=== PATIENT | female | born 1950 | race Caucasian/White ===

== ENCOUNTER 2020-11-02 23:33 | Emergency (ER) | payer MEDICARE, OTHER, SELFPAY ==
--- NOTE | ~2020-11-02 | CT_ITS ---
EXAMINATION: CT abdomen pelvis w con DATE: 11/03/2020 02:32 INDICATION: Abdominal pain. TECHNIQUE: Computed tomography (CT) of the abdomen and pelvis was performed with 100 mL Omnipaque 350 intravenous contrast. Automated exposure control and iterative reconstruction technique were employe d. The dose-length product was 1025.53 mGy-cm. COMPARISON: CT abdomen and pelvis 09/03/2015 FINDINGS: The visualized portions of the lung bases demonstrate minimal atelectasis. No pleural effus ion. The heart size is normal. No pericardial effusion. There is a right breast implant. The liver is normal. There is a 6 mm low-attenuation lesion in the inferior spleen, likely benign. There are devine ges of cholecystectomy. The adrenal glands are normal. There are cysts in the kidneys measuring up to 5 mm on the right. There is liquid stool in the colon suggestive of diarrhea. The appendix is normal . There is a 3.1 cm uterine fibroid. There are periuterine and ovarian veins are enlarged, consistent with pelvic venous insufficiency. There are no pathologically enlarged lymph nodes. There is a small volume of pelvic ascites. There is severe lumbar spondylosis. IMPRESSION: 1. Uterine fibroid. 2. Pelvic venous insufficiency. 3. Small volume of ascites. Reviewed, dictated and finalized at location A.
[2020-11-02 23:38] VITALS: BP 137/62; PULSE 102; RESP 18; TEMP 37.1; O2SAT 100
--- NOTE | 2020-11-03 00:19 | ED.GENADULT ---
HPI - General Adult General Chief complaint: Nausea/Vomiting/Diarrhea Stated complaint: n/v abd pain Time Seen by Provider: 11/02/20 23:52 Source: patient History of Present Illness HPI narrative: Patient is a 70 y/o female complaining of nausea, vomiting and diarrhea starting about 6 hours ago. She states that she vomited some food particles and later yellow liquid. She states that laying down seems to make her vomiting worse. She vomited approximately 10 times. She also has some abdominal pain. Related Data Home Medications Medication Instructions Recorded Confirmed diphenhydramine HCl 25 mg capsule 25 mg PO TID PRN 03/27/19 11/03/20 docusate sodium 50 mg capsule 50 mg PO DAILY 03/27/19 11/03/20 leflunomide 20 mg tablet 20 mg PO DAILY 03/27/19 11/03/20 methylphenidate HCl 10 mg tablet 10 mg PO DAILY 03/27/19 11/03/20 pregabalin 50 mg capsule 50 mg PO BID 03/27/19 11/03/20 tramadol 50 mg tablet 50 mg PO Q6H PRN 03/27/19 11/03/20 trazodone 100 mg tablet 50 mg PO BID 03/27/19 11/03/20 Allergies Allergy/AdvReac Type Severity Reaction Status Date / Time amlodipine Allergy Unknown severe Verified 11/02/20 23:50 constipation animal dander Allergy Unknown Asthma Verified 11/02/20 23:50 cat dander Allergy Unknown sneezing Verified 11/02/20 23:50 cefuroxime Allergy Unknown Unknown Verified 11/02/20 23:50 cephalexin Allergy Unknown stomach Verified 11/02/20 23:50 hurts erythromycin base Allergy Unknown Nausea Verified 11/02/20 23:50 latex Allergy Unknown Unknown Verified 11/02/20 23:50 mold Allergy Unknown sneezing Verified 11/02/20 23:50 Review of Systems Constitutional: Constitutional: Denies chills, Denies fever(s), Denies headache(s) and Denies weakness Eyes: Eyes: Denies blurry vision ENT: Denies headache(s) and Denies neck pain Cardiovascular: Cardiovascular: Denies chest pain and Denies dyspnea Respiratory: Respiratory: Denies cough and Denies dyspnea Gastrointestinal: Gastrointestinal: Reports abdominal pain, Reports diarrhea, Reports nausea and Reports vomiting Genitourinary: Genitourinary: Denies hematuria and Denies dysuria Musculoskeletal: Musculoskeletal: Denies back pain and Denies neck pain Neurologic: Denies headache(s) and Denies weakness PMFSH Past Medical History Medical History Acute low back pain Essential (primary) hypertension Fibromyalgia GERD (gastroesophageal reflux disease) History of breast cancer History of malignant melanoma History of stroke Hyperactivity of bladder Mixed hyperlipidemia Obesity On half-way drug therapy Rheumatoid arthritis Unspecified osteoarthritis, unspecified site Family History Family History Mother Cerebrovascular accident Hypertension Father Family history of chronic obstructive pulmonary disease Family history of lung cancer Hypertension Family history of emphysema Sibling Hypertension Other Depression Family history of arthritis Family history of malignant neoplasm Social History Social History Second hand tobacco smoke exposure: No Alcohol intake: never Substance use: never Substance use type: does not use Gender identity (if verbalized by the patient): Female Spiritual care concerns: No Agree to blood products: Yes Exam Const: General: no acute distress and well developed Orientation/consciousness: oriented to person, oriented to place, oriented to time and patient oriented x3 HENMT: Head: normocephalic Ears: external ears normal General nose exam: Normal external nose present Eyes: General: appearance normal, both eyes and all related structures Conjunctivae: conjunctivae normal Neck: Neck: normal visual inspection and full ROM Chest: Chest palpation & inspection: normal inspection of the chest and no tenderness Resp:
[2020-11-03] MEDS: ONDANSETRON INJ 4 MG/2 ML VIAL IV PUSH (00:49)
[2020-11-03] MEDS: SODIUM CHLORIDE 0.9% IV 1,000 ML 999 ML IV CONT ×2 (00:49→02:35)
[2020-11-03 01:53] LABS: Basophils Absolute Auto 0.1 K/mm3 (0.0-0.1); Basophils Percent Auto 0.4 % (0.2-1.2); Eosinophils Absolute Auto 0.1 K/mm3 (0-0.3); Eosinophils Percent Auto 0.3 % (0-4.4); Hematocrit 47.9 % (37.0-47.0); Hemoglobin 16.1 g/dL (12.0-15.0); Immature Granulocyte Absolute 0.12 K/mm3 (0.00-0.031); Immature Granulocyte Percent A 0.7 % (0-0.5); Lymphocytes Absolute Auto 0.46 K/mm3 (0.9-3.2); Lymphocytes Percent Auto 2.6 % (18.3-44.2); Mean Corpuscular HGB Conc 33.6 g/dl (32-36); Mean Corpuscular Hemoglobin 31.1 pg (26-34); Mean Corpuscular Volume 92.5 fl (80-100); Mean Platelet Volume 9.1 fl (7.4-10.4); Monocytes Percent Auto 5.9 % (2.6-8.5); Neutrophils Absolute Auto 15.8 K/mm3 (1.3-6.7); Neutrophils Percent Auto 90.1 % (45.5-73.1); Platelet Count Result 262 k/mm3 (150-375); Red Blood Count 5.18 M/mm3 (4.2-5.4); Red Cell Distribution Width 12.7 % (11.5-14.5); White Blood Count 17.5 K/mm3 (4.5-10.0)
[2020-11-03 01:58] LABS: Alanine Aminotransferase 20 U/L (4-35); Albumin Level 4.1 g/dL (3.5-5.1); Alkaline Phosphatase 101 U/L (38-126); Anion Gap 9 mmol/L (8-16); Aspartate Amino Transferase 25 U/L (14-36); Bilirubin,Total 0.7 mg/dL (0.2-1.3); Blood Urea Nitrogen 14 mg/dL (7-17); Calcium 9.8 mg/dL (8.4-10.2); Carbon Dioxide 28 mmol/L (22-30); Chloride 102 mmol/L (98-107); Estimated CRCL calculation 84 ml/min; Estimated Glomerular Filt Rate > 60; Glucose 126 mg/dL (65-105); Lipase 48 U/L (23-300); Potassium 3.2 mmol/L (3.4-5.0); Sodium 139 mmol/L (137-145)
[2020-11-03 02:06] VITALS: BP 131/65; PULSE 106; RESP 18; O2SAT 98
--- NOTE | 2020-11-03 02:19 | PC.NURSE ---
Pt to CT via stretcher at this time.
[2020-11-03] MEDS: POTASSIUM CHLORIDE 20 MEQ TABLET 40 MEQ PO (02:35)
[2020-11-03 02:38] LABS: Add Urine Microscopic? YES; Appearance Urine Clear (Clear); Bilirubin Urine Negative (Negative); Blood Urine Negative (Negative); Color Urine Amber (Yellow); Glucose Urine UA Negative (Negative); Ketones Urine 2+ mg/dL (Negative); Leukocyte Esterase Ur Negative LEU/UL (Negative); Mucus Urine Heavy /lpf; Nitrate Urine Negative (Negative); Protein Urine 2+ mg/dL (Negative); RBC Urine 0-2 /hpf (0-2); Specific Grav Ur 1.024 (1.001-1.035); Squamous Epithelial Cell Urine Rare /hpf (Few); Urobilinogen Urine Negative mg/dL (<2.0); WBC Urine 0-3 /hpf
[2020-11-03 03:59] VITALS: BP 138/74; PULSE 102; RESP 18; O2SAT 98
== END 2020-11-03 03:59 | disposition home or self-care (01) ==
PROVIDERS: Emergency Provider Emergency Medicine; PCP Family Medicine
DX: K52.9 Noninfective gastroenteritis and colitis, unspecified (principal); I10 Essential (primary) hypertension; K21.9 Gastro-esophageal reflux disease without esophagitis; N32.81 Overactive bladder; E66.9 Obesity, unspecified; Z68.32 Body mass index [BMI] 32.0-32.9, adult; M06.9 Rheumatoid arthritis, unspecified; M79.7 Fibromyalgia; M19.90 Unspecified osteoarthritis, unspecified site; Z85.3 Personal history of malignant neoplasm of breast; Z85.820 Personal history of malignant melanoma of skin; Z86.73 Personal history of transient ischemic attack (TIA), and cerebral infarction without residual deficits
CPT/HCPCS: 36415; 51701; 74177; 80053; 81001; 83690; 85025; 96361; 96374; 99284; A9270; J2405; J7030; Q9967

== ENCOUNTER 2020-12-02 08:20 | Outpatient (CLI) | payer MEDICARE, OTHER, SELFPAY ==
--- NOTE | ~2020-12-02 | CT_ITS ---
EXAMINATION: CT LE LT wo con DATE: 12/02/2020 08:56 INDICATION: Unilateral primary osteoarthritis of the left knee TECHNIQUE: High resolution computed tomography (CT) of the left knee was performed without intravenou s contrast. Imaging extends from the left hip through the left foot. Additional sagittal and coronal reconstructions of the left knee were performed. Automated exposure control and iterative reconstruct ion technique were employed. The dose-length product was 1786.80 mGy-cm. COMPARISON: Left knee radiographs dated 10/24/2018 FINDINGS: Bone alignment in the left lower limb from the left hip through the knee and ankle appears normal. No fracture. Compartmental osteoarthritis at the right knee with at least mild nonuniform joint space n arrowing and marginal osteophytes in all 3 compartments. The severity of the joint space narrowing ca n be underestimated on nonweightbearing imaging and likely is in the lateral compartment where there is suggestion of some remodeling of the central aspect of the tibial plateau. Small to moderate-sized left knee joint effusion. Mild left hip osteoarthritis without joint effusion. Minimal osteoarthriti s at the left ankle. High-grade chondromalacia with subarticular cystic change at both sides of the n aviculocuneiform articulation. Severe bilateral facet osteoarthritis at L4-L5 and L5-S1. There is als o severe osteoarthritis at the left sacroiliac joint. 4.5 x 1.7 x 1.0 cm intramuscular lipoma within the semitendinosus muscle. Remaining musculature of the left lower limb is unremarkable. IMPRESSION: 1. Small to moderate left knee joint effusion with a compartment osteoarthritis with at least mild edyta int space narrowing which is likely underestimated on nonweightbearing imaging. Reviewed, dictated and finalized at location A. IMPRESSION: 1. Small to moderate left knee joint effusion with a compartment osteoarthritis with at least mild joint space narrowing which is likely underestimated on non weightbearing imaging.
--- NOTE | 2020-12-02 09:35 | ECG_ITS ---
Measurements Intervals [place] Rate: 65 P: 40 TX: 174 QRS: 7 QRSD: 102 T: 48 QT: 404 QTc: 421 Interpretive Statements SINUS RHYTHM CONSIDER INFERIOR INFARCT, AGE INDETERMINATE BORDERLINE ST ABNORMALITY- HIGH LATERAL LEADS BASELINE ARTIFACT- I, III, AVL, AVF ABNORMAL ECG Electronically Signed On 12-02-2020 10:01:27 CDT by Sunny Posey D.O.
[2020-12-02 09:45] LABS: Hematocrit 42.1 % (37.0-47.0); Hemoglobin 13.9 g/dL (12.0-15.0)
[2020-12-02 09:58] LABS: Albumin Level 3.5 g/dL (3.5-5.1); Estimated Glomerular Filt Rate > 60; Glucose 87 mg/dL (65-110)
[2020-12-02 10:09] LABS: Hemoglobin A1C 5.2 % (<5.7)
[2020-12-02 11:28] LABS: Urine Cotinine NEGATIVE
== END 2020-12-02 08:21 | disposition home or self-care (01) ==
PROVIDERS: PCP Family Medicine; Visit Provider Orthopaedic Surgery
DX: M17.12 Unilateral primary osteoarthritis, left knee (principal); Z01.818 Encounter for other preprocedural examination; M25.462 Effusion, left knee; R94.31 Abnormal electrocardiogram [ECG] [EKG]
CPT/HCPCS: 73700; 80307; 82040; 82565; 82947; 83036; 85014; 85018; 93005

== ENCOUNTER 2021-04-02 12:18 | Emergency (ER) | payer MEDICARE, OTHER, SELFPAY ==
[2021-04-02 12:27] VITALS: BP 179/67; PULSE 59; RESP 16; O2SAT 100
--- NOTE | 2021-04-02 12:38 | ED.URI ---
HPI - URI/Sore Throat General Chief Complaint: Upper Respiratory Infection Stated Complaint: sinus issues/vision issues Time Seen by Provider: 04/02/21 12:40 Source: patient and RN notes reviewed Mode of arrival: ambulatory Limitations: no limitations History of Present Illness HPI Narrative: 70 year old female who presents to [facility] care with 10 day history of cold symptoms of cough. nasal congestion and drainage and some sinus pain and pressure. Patient states that she has had some frontal headaches and sinus pressure to face, has been taking OTC Benadryl ad Zyrtec for her symptoms with no improvements. Patient verbalizes history of sinus allergies and also some previous sinus infections. Patient also states that for the past 2 days she has some blurry vision and some difficulty with driving at night. Patient states that she has not seen an eye doctor and does not know if she has any cataracts or eye disease. MD elicited complaint: cough, rhinorrhea, nasal congestion and sinus pain Pertinent past history: sinusitis and seasonal allergies Onset (ago): day(s) () Consistency: constant Related Data Home Medications Medication Instructions Recorded Confirmed diphenhydramine HCl 25 mg capsule 25 mg PO TID PRN 03/27/19 02/24/21 docusate sodium 50 mg capsule 50 mg PO DAILY 03/27/19 02/24/21 leflunomide 20 mg tablet 20 mg PO DAILY 03/27/19 02/24/21 methylphenidate HCl 10 mg tablet 10 mg PO DAILY 03/27/19 02/24/21 pregabalin 50 mg capsule 50 mg PO BID 03/27/19 02/24/21 tramadol 50 mg tablet 50 mg PO Q6H PRN 03/27/19 02/24/21 trazodone 100 mg tablet 50 mg PO BID 03/27/19 02/24/21 pantoprazole 40 mg tablet,delayed 20 mg PO DAILY tablet 02/24/21 02/24/21 release Allergies Allergy/AdvReac Type Severity Reaction Status Date / Time amlodipine Allergy Unknown severe Verified 02/24/21 11:51 constipation animal dander Allergy Unknown Asthma Verified 02/24/21 11:51 cat dander Allergy Unknown sneezing Verified 02/24/21 11:51 cefuroxime Allergy Unknown Unknown Verified 02/24/21 11:51 cephalexin Allergy Unknown stomach Verified 02/24/21 11:51 hurts erythromycin base Allergy Unknown Nausea Verified 02/24/21 11:51 latex Allergy Unknown Unknown Verified 02/24/21 11:51 mold Allergy Unknown sneezing Verified 02/24/21 11:51 Review of Systems Review of Systems: CONSTITUTIONAL: Denies fever, chills, or sweats. EYES: states some visual blurring at times and some difficulty with night vision for past 2 days, no redness, or discharge. ENT: Positive for rhinorrhea, congestion, sore throat, no otalgia, sinus pressure CARDIOVASCULAR: Denies chest pain, palpitations, or edema. RESPIRATORY: Positive for cough denies any dyspnea. GASTROINTESTINAL: Denies abdominal pain, nausea, vomiting, or diarrhea. GENITOURINARY: Denies dysuria or hematuria. SKIN: Denies rash or itching. MUSCULOSKELETAL: Denies back pain, joint pain, or myalgia. NEUROLOGIC:Frontal headache, no numbness, or weakness. PSYCHIATRIC: Positive for history of anxiety or depression. All systems reviewed & are unremarkable except as noted in HPI and below PMFSH Past Medical History Medical History (Updated 04/03/21 @ 15:53 by Sharon Gabriel NP) Acute low back pain Ankylosing spondylitis Anxiety and depression Chronic back pain Essential (primary) hypertension Fibromyalgia GERD (gastroesophageal reflux disease) History of breast cancer History of malignant melanoma History of stroke Hyperactivity of bladder Mixed hyperlipidemia Obesity On long term care social worker drug therapy Rheumatoid arthritis Unspecified osteoarthritis, unspecified site Surgical History Surgical History (Updated 04/03/21 @ 13:54 by Sharon Gabriel NP) H/O repair of right rotator cuff History of bladder surgery History of right mastectomy breast reconstructive surgeries Family History Family History Mother Cerebrovascular accident Hypertensi
== END 2021-04-02 13:02 | disposition home or self-care (01) ==
PROVIDERS: Emergency Provider Registered Nurse; PCP Family Medicine
DX: J32.9 Chronic sinusitis, unspecified (principal); I10 Essential (primary) hypertension; K21.9 Gastro-esophageal reflux disease without esophagitis; Z86.73 Personal history of transient ischemic attack (TIA), and cerebral infarction without residual deficits; M06.9 Rheumatoid arthritis, unspecified; M19.90 Unspecified osteoarthritis, unspecified site; M45.9 Ankylosing spondylitis of unspecified sites in spine; M79.7 Fibromyalgia; Z85.3 Personal history of malignant neoplasm of breast; Z85.820 Personal history of malignant melanoma of skin
CPT/HCPCS: 99213; G0463

== ENCOUNTER → 2021-04-09 01:02 | Outpatient (CLI) | payer MEDICARE, OTHER, SELFPAY ==
[2021-04-09 18:55] LABS: SARS-CoV-2 RNA PCR Negative
== END ==
PROVIDERS: PCP Family Medicine; Visit Provider Physician Assistant
DX: R42 Dizziness and giddiness (principal); R09.81 Nasal congestion; Z20.822 Contact with and (suspected) exposure to COVID-19
CPT/HCPCS: C9803; U0003; U0005

== ENCOUNTER 2021-06-15 16:42 | Outpatient (CLI) | payer MEDICARE, OTHER, SELFPAY ==
--- NOTE | ~2021-06-15 | MR_ITS ---
EXAMINATION: MR lumbar spine wo con DATE: 06/15/2021 17:39 INDICATION: Low back pain. TECHNIQUE: Magnetic resonance imaging (MRI) of the lumbar spine was performed without intravenous con trast. Sequences included sagittal T2-weighted FSE, sagittal T2-weighted FS FSE, sagittal T1-weighted FSE, and axial T2-weighted FSE. COMPARISON: Lumbar spine MRI 08/27/2018 FINDINGS: There is 3 degrees levocurvature of lumbar spine. There is 3 mm retrolisthesis of L1 on L2, 3 mm anterolisthesis of L3 on L4, and 5 mm anterolisthesis of L4 on L5. Vertebral body heights are n ormal. There is moderately decreased disc height at L1-L2 and L3-L4 and mildly decreased disc height at L2-L3 and L4-L5. The distal spinal cord signal intensity is normal. The conus medullaris is at L1- L2. The following disc levels are specifically discussed: L1-L2: The disc is bulging with superimposed central extrusion. There is severe right and moderate le ft facet joint osteoarthritis. There is moderate right and mild left neural foraminal stenosis. There is mild central canal stenosis. L2-L3: The disc is bulging and has an annular fissure. There is severe bilateral facet joint osteoart hritis. There is mild bilateral neural foraminal stenosis. There is mild central canal stenosis. L3-L4: The disc is bulging with superimposed central extrusion. There is severe bilateral facet joint osteoarthritis. There is mild bilateral neural foraminal stenosis. There is moderate central canal s tenosis. L4-L5: The disc is bulging with superimposed central extrusion. There is severe bilateral facet joint osteoarthritis. There is mild right and moderate left neural foraminal stenosis. There is mild centr al canal stenosis. L5-S1: The disc does not extend beyond the endplate margin. There is severe bilateral facet joint ost eoarthritis. There is mild bilateral neural foraminal stenosis. There is no central canal stenosis. IMPRESSION: 1. Moderate lumbar spondylosis, worsened from 08/27/2018. Reviewed, dictated and finalized at location E. CTOR WORK
== END 2021-06-15 16:43 | disposition home or self-care (01) ==
LOC: ANHIMG 16:44
PROVIDERS: PCP Family Medicine; Visit Provider Nurse Practitioner Family
DX: M47.896 Other spondylosis, lumbar region (principal)
CPT/HCPCS: 72148

== ENCOUNTER 2021-07-14 07:33 | Outpatient (CLI) | payer MEDICARE, OTHER, SELFPAY ==
--- NOTE | ~2021-07-14 | NM_ITS ---
EXAMINATION: NM isela stress w perfusion DATE: 07/14/2021 11:13 INDICATION: Abnormal electrocardiogram. TECHNIQUE: Rest images were obtained following intravenous administration of 11.4 mCi Tc99m tetrofosm in (Myoview). The patient was infused intravenously with Lexiscan (regadenoson). Then, 33 mCi Tc99m t etrofosmin (Myoview) was administered intravenously, and stress images were obtained. Data was recons tructed into short axis and horizontal and vertical long axis SPECT images. Gated SPECT images were a lso obtained. COMPARISON: CT abdomen and pelvis 11/03/2020 FINDINGS: There is no definite reversible or fixed perfusion abnormality to suggest ischemia or infar ction. There is no segmental wall motion abnormality. Left ventricular ejection fraction measures 6 9%. IMPRESSION: 1. No definite ischemia or infarct. 2. Normal left ventricular ejection fraction measuring 69%. Reviewed, dictated and finalized at location A. [employer] INTERVIEWS INTERN
--- NOTE | 2021-07-14 07:43 | ECHO_ITS ---
Patient Info Name: Oneal Echeverria Age: 71 years : 1950 Gender: Female Ht: 60 in Wt: 176 lbs BSA: 1.88 m2 HR: 65 bpm BP: 140 / 88 mmHg Technical Quality: Good Exam Date: 07/14/2021 7:56 AM Exam Location: [facility] Patient Status: Outpatient Admit Date: 07/14/2021 Staff Ordering Physician: Apolinar Young MD Fertilizer Applicator: Vicky German RDCS Attending Provider: Apolinar Young MD Referring Physician: Hannah LINDER; Exam Type: CA echo doppler color flow Study Info Indications I50.9 - Heart failure, unspecified Complete two-dimensional, color flow and Doppler transthoracic echocardiogram is performed. Summary 1. Complete two-dimensional, color flow and Doppler transthoracic echocardiogram is performed. 2. Left ventricular chamber dimension is normal. 3. Left ventricular systolic function is normal, estimated at 60-65%. 4. The left ventricular diastolic function is grade II diastolic dysfunction. 5. E/e' 10 is mildly elevated. 6. Global longitudinal strain is abnormal at -15.1%. 7. There is mild aortic valve sclerosis. 8. There is mild mitral valve regurgitation. 9. There is mild tricuspid valve regurgitation. 10. Mild pulmonary hypertension, estimated pulmonary arterial systolic pressure is 40 mmHg. Left Ventricle E/e' 10 is mildly elevated. Global longitudinal strain is abnormal at -15.1%. Left ventricular chamber dimension is normal. Left ventricular systolic function is normal, estimated at 60-65%. The left ventricular diastolic function is grade II diastolic dysfunction. Right Ventricle Right ventricular chamber dimension is normal. Right ventricular systolic function is normal. Left Atria Left atrial chamber dimension is normal. Right Atria Right atrial chamber dimension is normal. Aortic Valve The aortic valve is trileaflet. There is mild aortic valve sclerosis. There is no aortic valve stenosis. There is no aortic valve regurgitation. Pulmonic Valve There is no pulmonic regurgitation. Mitral Valve There is no mitral valve stenosis. There is mild mitral valve regurgitation. Tricuspid Valve There is mild tricuspid valve regurgitation. Mild pulmonary hypertension, estimated pulmonary arterial systolic pressure is 40 mmHg. Pericardium/Pleural There is no pericardial effusion. Inferior Vena Cava Normal inferior vena cava with >50% collapse upon inspiration consistent with normal right atrial pressure, 5 mmHg. Aorta The aortic root size at the sinus of Valsalva is normal. Left Ventricular Outflow Tract Name Value Normal LVOT 2D LVOT Diameter 1.8 cm LVOT Doppler LVOT Peak Gradient 5 mmHg LVOT Mean Gradient 3 mmHg LVOT VTI 26 cm LVOT VTI/AV VTI Ratio 0.8 LVOT Stroke Volume 69 ml LVOT CO 4.3 l/min LVOT CI 2.3 l/min/m2 Pulmonic Valve Name
--- NOTE | 2021-07-14 07:44 | EST_ITS ---
Patient Info Name: Oneal Echeverria Age: 71 years : 1950 Gender: Female Ht: 61 in Wt: 176 lbs BSA: 1.89 m2 HR: 63 bpm BP: 170 / 55 mmHg Heart Rhythm: Sinus Rhythm Exam Date: 07/14/2021 9:46 AM Exam Location: [facility] Stress Patient Status: Outpatient Admit Date: 07/14/2021 Staff Ordering Physician: Apolinar Young MD Attending Provider: Apolinar Young MD Exercise Technologist: Yola Guerra CT Exercise Physician: Sunny Posey DO Exam Type: CA stress isela w NM Study Info Indications R94.31 - Abnormal electrocardiogram ECG EKG A regadenoson stress test was performed. Summary 1. 1. Abnormal lexiscan stress test for ischemic ST changes by ECG criteria. 2. 2. Baseline hypertension. 3. 3. Nuclear scan to follow and will be reported separately. Please correlate with it. 4. 4. Patient informed of the above results. Protocol: Lexiscan Stress ECG Details Stage: REST Duration (min): 3 min : 29 sec HR (bpm): 68 SBP (mmHg): 170 DBP (mmHg): 55 Stage: REST Duration (min): 10 min : 32 sec HR (bpm): 69 SBP (mmHg): 170 DBP (mmHg): 55 Stage: STAGE 1 Duration (min): 0 min : 59 sec HR (bpm): 90 SBP (mmHg): 170 DBP (mmHg): 55 Stage: RECOVERY Duration (min): 1 min : 0 sec HR (bpm): 97 SBP (mmHg): 158 DBP (mmHg): 68 Stage: RECOVERY Duration (min): 2 min : 0 sec HR (bpm): 99 SBP (mmHg): 158 DBP (mmHg): 68 Stage: RECOVERY Duration (min): 3 min : 0 sec HR (bpm): 94 SBP (mmHg): 219 DBP (mmHg): 72 Stage: RECOVERY Duration (min): 3 min : 36 sec HR (bpm): 93 SBP (mmHg): 219 DBP (mmHg): 72 Rest HR: 69 bpm Peak HR: 99 bpm Rest Sys BP: 170 mmHg Peak Sys BP: 219 mmHg Max Pred HR: 150 bpm % Max Pred HR: 66 % Target HR: 128 bpm Max RPP: 21,681 bpm*mmHg Termination Reason: Completed protocol Cardiac Symptoms: Shortness of breath Total Time: 1 min : 0 sec Rest [place] BP: 55 mmHg Peak [place] BP: 72 mmHg Total Dose: 0.4 mg Resting ECG Sinus rhythm. Stress ECG [address] depression in II, III, avF. Arrhythmias None. Report Signatures
== END 2021-07-14 07:34 | disposition home or self-care (01) ==
LOC: ANHCARD 07:35
PROVIDERS: PCP Family Medicine; Visit Provider Family Medicine
DX: I50.9 Heart failure, unspecified (principal); R94.31 Abnormal electrocardiogram [ECG] [EKG]; I08.3 Combined rheumatic disorders of mitral, aortic and tricuspid valves
CPT/HCPCS: 78452; 93017; 93306; A9502; J2785

== ENCOUNTER 2021-08-24 10:39 | Outpatient (CLI) | payer MEDICARE, OTHER, SELFPAY ==
--- NOTE | 2021-08-24 | ECG_ITS ---
Measurements Intervals [place] Rate: 55 P: 40 RI: 204 QRS: 8 QRSD: 100 T: 54 QT: 419 QTc: 401 Interpretive Statements SINUS BRADYCARDIA NONSPECIFIC ST ABNORMALITY CANNOT RULE AN INFERIOR INFARCTION , AGE INDETERMINATE ABNORMAL ECG COMPARED TO ECG 12/02/2020 09:46:22 HEART RATE HAS DECREASED Electronically Signed On 08-24-2021 18:03:44 CDT by Elian Alford M.D.
[2021-08-24 11:28] LABS: Hematocrit 42.9 % (37.0-47.0); Hemoglobin 14.1 g/dL (12.0-15.0)
[2021-08-24 11:35] LABS: Albumin Level 3.8 g/dL (3.5-5.1); Estimated Glomerular Filt Rate > 60; Glucose 86 mg/dL (65-110)
[2021-08-24 11:38] LABS: Urine Cotinine NEGATIVE
== END 2021-08-24 10:40 | disposition home or self-care (01) ==
LOC: ANHLAB 10:47
PROVIDERS: PCP Family Medicine; Visit Provider Orthopaedic Surgery
DX: M17.12 Unilateral primary osteoarthritis, left knee (principal); Z01.818 Encounter for other preprocedural examination; R94.31 Abnormal electrocardiogram [ECG] [EKG]; R00.1 Bradycardia, unspecified
CPT/HCPCS: 80307; 82040; 82565; 82947; 85014; 85018; 93005

== ENCOUNTER 2021-11-11 12:01 | Outpatient (CLI) | payer MEDICARE, OTHER, SELFPAY ==
[2021-11-11 13:40] LABS: Basophils Absolute Auto 0.1 K/mm3 (0.0-0.1); Basophils Percent Auto 0.6 % (0.2-1.2); Eosinophils Absolute Auto 0.3 K/mm3 (0-0.3); Hematocrit 42.2 % (37.0-47.0); Hemoglobin 14.1 g/dL (12.0-15.0); Immature Granulocyte Absolute 0.04 K/mm3 (0.00-0.031); Immature Granulocyte Percent A 0.5 % (0-0.5); Lymphocytes Absolute Auto 1.41 K/mm3 (0.9-3.2); Lymphocytes Percent Auto 16.7 % (18.3-44.2); Mean Corpuscular HGB Conc 33.4 g/dl (32-36); Mean Corpuscular Hemoglobin 30.6 pg (26-34); Mean Corpuscular Volume 91.5 fl (80-100); Mean Platelet Volume 9.3 fl (7.4-10.4); Monocytes Absolute Auto 0.8 K/mm3 (0.1-0.6); Monocytes Percent Auto 9.7 % (2.6-8.5); Neutrophils Absolute Auto 5.8 K/mm3 (1.3-6.7); Neutrophils Percent Auto 68.5 % (45.5-73.1); Platelet Count Result 303 k/mm3 (150-375); Red Blood Count 4.61 M/mm3 (4.2-5.4); Red Cell Distribution Width 13.2 % (11.5-14.5); White Blood Count 8.4 K/mm3 (4.5-10.0)
[2021-11-11 13:49] LABS: Albumin Level 3.8 g/dL (3.5-5.1); Anion Gap 2 mmol/L (8-16); Blood Urea Nitrogen 11 mg/dL (7-17); Carbon Dioxide 33 mmol/L (22-30); Chloride 101 mmol/L (98-107); Estimated Glomerular Filt Rate > 60; Glucose 95 mg/dL (65-110); Potassium 3.5 mmol/L (3.4-5.0); Sodium 136 mmol/L (137-145)
[2021-11-11 14:21] LABS: Urine Cotinine NEGATIVE
== END 2021-11-11 12:02 | disposition home or self-care (01) ==
LOC: ANHSURGERY 12:05
PROVIDERS: PCP Emergency Medicine; Visit Provider Orthopaedic Surgery
DX: M17.12 Unilateral primary osteoarthritis, left knee (principal); I10 Essential (primary) hypertension; Z01.818 Encounter for other preprocedural examination
CPT/HCPCS: 80048; 80307; 82040; 83036; 85025; 86850; 86900; 86901; 87081

== ENCOUNTER 2021-11-23 13:28 | Observation (INO) | payer MEDICARE, OTHER, SELFPAY ==
[2021-11-11 12:34] VITALS: BP 150/57; PULSE 56; RESP 18; TEMP 35.9; O2SAT 99; BMI 33.5
--- NOTE | 2021-11-11 12:49 | PC.NURSE ---
Report to the Outpatient Waiting Room, entrance under the green pavilion located off [facility], at time _0600_ on date _11-22-2021_. OR Time: __0730_. - You and your visitor will be asked a series of questions to screen for COVID 19 for your protection. - Only one visitor is allowed at this time. - The patient visitor is requested to leave or wait in car when not with patient. - A mask is required within the hospital. Patients may have clear liquids (water, carbonated beverages, clear teas, apple juice) until 3 hours prior to surgery with a maximum of 20 ounces. - No food from midnight until time of surgery Take the following medications with a SIP of water the morning of surgery: Use eye drops and flonase. May use Lorazepam and tramadol if needed._ Medications to discontinue per physician ____Clopidogrel Date to take last ijmg__[phone] Please no make-up, nail swedish, hairspray, perfume, deodorant, or body powder the day of surgery. No jewelry (including any body piercings) or valuables the day of surgery, leave them at home. Please take a shower or bath the night before, or the morning of, surgery with an antibacterial soap. Wear comfortable, loose fitting clothing. - Jewelry must be removed prior to entering the operating room. Rings and piercings that are not removed may be cut off. - The hospital will not accept responsibility for valuables. - Please leave all valuables, including medications, at home the day of surgery. If you are going home after surgery, a licensed driver courier must drive you home. - NO public transportation without another adult. - We recommend that an adult stay with you for 24 hours following discharge. - We also recommend that you do not drive, make important decision, drink alcoholic beverages, or take any drugs that were not prescribed by your health care provider for at least 24 hours after your discharge time. Follow any additional instructions given to you from your surgeon. If you or anyone in your household have experienced Covid symptoms in the past week, please notify your surgeon or the nurse liaison at the phone number below for possible testing. Telephone instructions given to __Patient and asked if any additional questions and then verbalized understanding. Patient advised to call surgeon office or pre surgery nurse liaison [phone] if any additional questions.
--- NOTE | 2021-11-21 14:43 | WPDANESEPPF ---
Anes - Initial Pre Proc Eval Procedure: Operation Date: 11/22/21 07:30 Proposed Procedures p Left Custom Total Knee Replacement - Uche Beadr MD Date/Time: 11/21/21 14:43 Surgeon: Uche Beard MD Pre Op Diagnosis: Prim O.A.Left Knee Patient Data Age: 71 Gender: F Height: 1.52 m Weight: 78 kg Last Vital Signs Temp 35.9 C L 11/11/21 12:34 Pulse 56 L 11/11/21 12:34 Resp 18 11/11/21 12:34 BP 150/57 H 11/11/21 12:34 Pulse Ox 99 11/11/21 12:34 O2 Del Method Room Air 11/11/21 12:34 Allergies Allergy/AdvReac Type Severity Reaction Status Date / Time cefuroxime Allergy Severe Swelling Verified 11/22/21 06:11 animal dander Allergy Intermediate Itching Verified 11/22/21 06:11 cat dander Allergy Intermediate sneezing Verified 11/22/21 06:11 latex Allergy Mild Itching Verified 11/22/21 06:11 mold Allergy Mild sneezing Verified 11/22/21 06:11 erythromycin base AdvReac Mild Nausea Verified 11/22/21 06:11 Home Medications Medication Instructions Recorded Confirmed Type diphenhydramine HCl 25 mg capsule 50 mg PO HS 03/27/19 11/22/21 History (Benadryl) docusate sodium 50 mg capsule 100 mg PO DAILY 03/27/19 11/22/21 History (Stool Softener) leflunomide 20 mg tablet 20 mg PO DAILY 03/27/19 11/22/21 History methylphenidate HCl 10 mg tablet 10 mg PO TID 03/27/19 11/22/21 History (Ritalin) tramadol 50 mg tablet 50 mg PO Q6H PRN Pain 03/27/19 11/22/21 History trazodone 100 mg tablet 100 mg PO HS 03/27/19 11/22/21 History fluticasone propionate 50 2 spray intranasal DAILY #18.2 mL 12/20/20 11/22/21 Rx mcg/actuation nasal spray,suspension (Flonase Allergy Relief) lorazepam 0.5 mg tablet 0.5 mg PO DAILY PRN Anxiety 07/07/21 11/11/21 History benazepril 40 mg tablet 40 mg PO DAILY #90 tabs 08/24/21 11/22/21 Rx brimonidine 0.2 % eye drops 1 drp EACH EYE BID 11/11/21 11/22/21 History cetirizine 10 mg tablet (Zyrtec) 10 mg PO DAILY 11/11/21 11/22/21 History cholecalciferol (vitamin D3) 25 50 mcg PO DAILY 11/11/21 11/22/21 History mcg (1,000 unit) capsule (Vitamin D3) clopidogrel 75 mg tablet 75 mg PO DAILY 11/11/21 11/22/21 History hydrochlorothiazide 12.5 mg tablet 25 mg PO DAILY 11/11/21 11/22/21 History metoprolol succinate 25 mg 25 mg PO HS 11/11/21 11/22/21 History tablet,extended release 24 hr pantoprazole 40 mg tablet,delayed 40 mg PO HS 11/11/21 11/22/21 History release pregabalin 75 mg capsule 75 mg PO HS 11/11/21 11/22/21 History timolol maleate 0.5 % eye drops 1 drp EACH EYE BID 11/11/21 11/22/21 History Other studies: Exam Date: ? ? 07/14/2021 7:56 AM Summary ? 1. Complete two-dimensional, color flow and Doppler transthoracic echocardiogram is performed. ? 2. Left ventricular chamber dimension is normal. ? 3. Left ventricular systolic function is normal, estimated at 60-65%. ? 4. The left ventricular diastolic function is grade II diastolic dysfunction. ? 5. E/e' 10 is mildly elevated. ? 6. Global longitudinal strain is abnormal at -15.1%. ? 7. There is mild aortic valve sclerosis. ? 8. There is mild mitral valve regurgitation. ? 9. There is mild tricuspid valve regurgitation. ? 10. Mild pulmonary hypertension, estimated pulmonary arterial systolic pressure is 40 mmHg. Patient hx anesthesia problems: none Family hx anesthesia problems: none Results Review: All pre-operative results and documents have been reviewed as part of the pre-operative evaluation. 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
--- NOTE | 2021-11-21 14:44 | WPDANESPNB ---
Anes - Peripheral Nerve Block Date/Time: 11/21/21 14:44 I have discussed with the patient/family/POA the placement of a peripheral nerve block for post-operative pain management, including associated risks, benefits, complications, and side effects. Alternative methods of post-operative analgesia were detailed. Questions were solicited and answers provided to the satisfaction of the patient/family/POA. Time-Out: A pre-procedural Time-Out was completed immediately before starting the procedure and confirmed: Patient Identification, Site, Procedure, Patient Position and the Availability of Requisite Equipment. Clinical Indications: Acute post-operative pain management requested by the operative surgeon. Nerve Block Insertion Note Anes-nerve block: adductor canal left Patient position: supine Skin prep: chlorhexidine Needle: 22 gauge, stimulating, insulated echogenic needle. Needle length: 80 mm Technique: ultrasound Technique comment: in plane Injectate: bupivacaine 0.5% with epi 5 mcg/ml (30cc) Observations: tolerated well Complications: none Procedure start time:: 720 Procedure end time:: 725
[2021-11-22] VITALS (23 sets, daily range): BP systolic 114–145; BP diastolic 45–76; PULSE 51–95; RESP 8–18; TEMP 36.4–36.6; O2SAT 93–100
[2021-11-22] MEDS: ACETAMINOPHEN 500 MG TABLET 1000 MG PO (06:15)
[2021-11-22] MEDS: LACTATED RINGERS 1,000 ML 30 ML IV CONT (07:00)
[2021-11-22] MEDS: TRANEXAMIC ACID 1,000MG/ISO100 1,000 MG/100 ML BAG 200 MG IVPB (07:01)
--- NOTE | 2021-11-22 07:10 | WPDHPUPDATE1 ---
History and Physical Update Update Date/Time: 11/22/21 07:10 History and Physical has been reviewed, including an updated exam of the patient. There are NO changes in the patient's condition. Risks, benefits, and alternatives have been discussed and questions answered. Patient agrees to proceed with procedure.
--- NOTE | 2021-11-22 07:27 | PM.IMHP ---
H&P: HPI History of Present Illness Date/Time: 11/22/21 07:27 Chief Complaint: Left knee pain. Narrative: Patient returns with severe left knee pain. Progressive excruciating pain in the left knee.? Worse with daily activities.? Unable to walk more than a few blocks without severe pain.? Has undergone extensive conservative treatment over the past few years including physical therapy and multiple injections.? Pain is severely affecting her quality of life. Recent stress test normal. Review of Systems Review of Systems: All systems reviewed & are unremarkable except as noted in HPI and below PMFSH Past Medical History Medical History Acute low back pain Ankylosing spondylitis Anxiety and depression Chronic back pain COVID-19 (~05/2021) Essential (primary) hypertension Fibromyalgia GERD (gastroesophageal reflux disease) History of breast cancer History of malignant melanoma History of stroke Hyperactivity of bladder Mixed hyperlipidemia Obesity On alf drug therapy Rheumatoid arthritis Unspecified osteoarthritis, unspecified site Surgical History Surgical History H/O repair of right rotator cuff History of bladder surgery History of right mastectomy breast reconstructive surgeries Family History Family History Mother Cerebrovascular accident Hypertension Father Family history of chronic obstructive pulmonary disease Family history of lung cancer Hypertension Family history of emphysema Sibling Hypertension Other Depression Family history of arthritis Family history of malignant neoplasm Social History Social History Smoking status: Never smoker Second hand tobacco smoke exposure: No Alcohol intake: never Substance use: never Substance use type: does not use Living arrangements: with family Gender identity (if verbalized by the patient): Female Spiritual care concerns: No Agree to blood products: Yes Meds Home Medications and Allergies Home Medications Medication Instructions Recorded Confirmed Type diphenhydramine HCl 25 mg capsule 50 mg PO HS 03/27/19 11/22/21 History (Benadryl) docusate sodium 50 mg capsule 100 mg PO DAILY 03/27/19 11/22/21 History (Stool Softener) leflunomide 20 mg tablet 20 mg PO DAILY 03/27/19 11/22/21 History methylphenidate HCl 10 mg tablet 10 mg PO TID 03/27/19 11/22/21 History (Ritalin) tramadol 50 mg tablet 50 mg PO Q6H PRN Pain 03/27/19 11/22/21 History trazodone 100 mg tablet 100 mg PO HS 03/27/19 11/22/21 History fluticasone propionate 50 2 spray intranasal DAILY #18.2 mL 12/20/20 11/22/21 Rx mcg/actuation nasal spray,suspension (Flonase Allergy Relief) lorazepam 0.5 mg tablet 0.5 mg PO DAILY PRN Anxiety 07/07/21 11/11/21 History benazepril 40 mg tablet 40 mg PO DAILY #90 tabs 08/24/21 11/22/21 Rx brimonidine 0.2 % eye drops 1 drp EACH EYE BID 11/11/21 11/22/21 History cetirizine 10 mg tablet (Zyrtec) 10 mg PO DAILY 11/11/21 11/22/21 History cholecalciferol (vitamin D3) 25 50 mcg PO DAILY 11/11/21 11/22/21 History mcg (1,000 unit) capsule (Vitamin D3) clopidogrel 75 mg tablet 75 mg PO DAILY 11/11/21 11/22/21 History hydrochlorothiazide 12.5 mg tablet 25 mg PO DAILY 11/11/21 11/22/21 History metoprolol succinate 25 mg 25 mg PO HS 11/11/21 11/22/21 History tablet,extended release 24 hr pantoprazole 40 mg tablet,delayed 40 mg PO HS 11/11/21 11/22/21 History release pregabalin 75 mg capsule 75 mg PO HS 11/11/21 11/22/21 History timolol maleate 0.5 % eye drops 1 drp EACH EYE BID 11/11/21 11/22/21 History Allergies Allergy/AdvReac Type Severity Reaction Status Date / Time cefuroxime Allergy Severe Swelling Verified 11/22/21 06:11 animal dander Osmin
[2021-11-22] MEDS: CLINDAMYCIN 900 MG/D5W 50 ML 900 MG/50 ML PIGGYBACK 50 MG IVPB (07:35)
[2021-11-22] MEDS: fentaNYL CITRATE INJ (*CRX) 100 MCG/2 ML VIAL 25 MCG IV PUSH ×8 (10:28→13:33)
--- NOTE | 2021-11-22 15:13 | PM.IMCN ---
Assessment and Plan Assessment and plan (1) Status post left knee replacement: Code(s): Z96.652 - Presence of left artificial knee joint Status: Acute Assessment and Plan: POD 1 Post op care per ortho Pain medications: Oxycodone 5-10mg PO Q4H PRN, Tylenol IV x3 bags. Clinda and vanc x 3 bags Bowel: Miralax and Senna Ice pack DVT per ortho PT/OT (2) Osteoarthritis of left knee: Qualifiers: Osteoarthritis type: primary Qualified Code(s): M17.12 - Unilateral primary osteoarthritis, left knee Code(s): M17.12 - Unilateral primary osteoarthritis, left knee Status: Acute Assessment and Plan: see above (3) Mixed hyperlipidemia: Code(s): E78.2 - Mixed hyperlipidemia Status: Acute Assessment and Plan: continue home medications (4) Essential (primary) hypertension: Code(s): I10 - Essential (primary) hypertension Status: Acute Assessment and Plan: Current BP 140/51 Continue Home metoprolol 25 at night, hydrochlorothiazide 25 daily benazepril 40 mg p.o. 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 Status: Acute Assessment and Plan: on clopidogrel for stroke continue clopidogrel for now (6) Allergies: Code(s): T78.40XA - Allergy, unspecified, initial encounter Status: Acute Assessment and Plan: Continue home medications Trend allergies Add eye drops as her complaints are with red dry eyes HPI Data of Consult Consult date: 11/22/21 Requesting Physician: Uche Beard MD Primary Care Provider: Julius Galvin MD Consult Narrative Reason for consult: medical management Narrative: Oneal Echeverria is a 71 year old female with a past medical history of HTN, GERD, RA and breast cancer that is here for an elective surgery left total left knee replacement. Patient has been complaining of left knee pain for quite awhile pain. Prior to getting her surgery she was unable to walk more than a few blocks without severe pain. Currently she is doing okay lying in bed. She does have some pain and ice pack is present at this time. She denies any chest pain, shortness of breath, nausea, vomiting, diarrhea, constipation, weakness or fatigue. 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 Rheumatoid arthritis Unspecified osteoarthritis, unspecified site Surgical History Surgical History H/O repair of right rotator cuff History of bladder surgery History of right mastectomy breast reconstructive surgeries Family History Family History Mother Cerebrovascular accident Hypertension Father Family history of chronic obstructive pulmonary disease Family history of lung cancer Hypertension Family history of emphysema Sibling Hypertension Other Depression Family history of arthritis Family history of malignant neoplasm Social History Social History Smoking status: Never smoker Second hand tobacco smoke exposure: No Alcohol intake: never Substance use:
--- NOTE | 2021-11-22 15:14 | ADMGEN ---
This patient, Oneal Echeverria, was admitted to 2 Medical Room 242-01. Patient/family oriented to hospital policies and general routines including ID bracelet, bed and alarms, visiting hours, pain management, procedures, bathroom and other care routines, personal items, smoking policy, room service/diet, and visiting hours. Information on how to activate the Rapid Response Team has been discussed. Patient/Family are encouraged to report perceived risks to care and to ask questions if they do not understand what they are told or what they should do. 11/22/21 15:00
[2021-11-22] MEDS: SODIUM CHLORIDE 0.9% IV 1,000 ML 125 ML IV CONT (15:42)
[2021-11-22] MEDS: CLINDAMYCIN 600 MG/D5W 50 ML 600 MG/50 ML PIGGYBACK 100 MG IVPB ×2 (16:12→23:29)
[2021-11-22] MEDS: MELOXICAM 7.5 MG TABLET PO (16:19)
[2021-11-22] MEDS: SENNA/DOCUSATE SODIUM TABLET 2 TAB PO (16:19)
[2021-11-22] MEDS: ASPIRIN 81 MG ENTERIC TABLET PO (16:19)
[2021-11-22] MEDS: oxyCODONE HCL (*CRX) 5 MG TAB IR 10 MG PO (16:21)
[2021-11-22] MEDS: TIMOLOL MALEATE 0.5% OP SOLN 5 ML BOTTLE 1 DROP EACH EYE (16:22)
--- NOTE | 2021-11-22 16:24 | P.OP_ITS ---
Procedure Note - Detailed Date of Procedure 11/22/21 Pre-op Diagnosis Prim O.A.Left Knee Post-op Diagnosis Same Procedure Performed Total knee arthroplasty, left. Surgeon Uche Beard MD Manager Advertising Khalida Loving PA-C Anesthesia General and Regional (Subsartorial block.) Description of Procedure Preoperative antibiotics were given. The limb was prepped and draped in the usual sterile fashion with a well-padded tourniquet high on the thigh. The limb was exsanguinated and the tourniquet inflated to 300 mmHg. A longitudinal incision was created just medial to the patella. A trivector approach to the knee was performed. Arthrotomy was taken down through the joint capsule. No significant releases were initially taken. The femur was exposed and the F1 jig was applied. The coring tool was used to remove the cartilage for the F2 jig to sit flush with the bone. The jig was pinned and the distal cut carefully taken. Caliper measurements confirmed appropriate bony resections according to the preoperative templated plan. The F4 cutting jig for the femur was applied, at the standard rotation. The AP and anterior chamfer cuts were taken. The F5 jig was applied and the posterior chamfer cuts were taken. The tibia was prepared using the T1 jig, after removing cartilage for the jig contact points. Proper alignment was checked with the alignment juancho. The tibia was cut using the T1u guide. Gap balancing was performed. Gap measurements were taken and the knee was trialed. Excellent alignment and soft tissue balancing was confirmed. The posterior cruciate ligament was recessed along the proximal tibia. The patella was cut for resurfacing. Three lug holes were drilled. Meniscal remnants were removed. The trial components were assembled. Excellent range of motion and proper soft tissue balancing were confirmed throughout the full range of motion. Patellar tracking was excellent. The knee was copiously irrigated periodically throughout the procedure. The real implants were cemented into position. Excess cement was carefully removed. The wound was closed in layers with interrupted #1 Vicryl suture, 2-0 strata fix suture, 0 strata fix suture, 2-0 strata fix suture. Steri-Strips placed on the skin with the knee flexed. Sterile bulky dressing applied. The patient was brought to the recovery room in stable condition. There were no complications. Physician sales and marketing assistant, Khalida Pisarski, PA-C, required for surgery; including patient positioning, draping, tissue retraction, maintaining instrument position, cement removal, wound closure, and dressing placement. Implants Conformis Custom total knee arthroplasty. Cemented. Cruciate retaining. 7A insert. 29 mm round patella. Estimated Blood Loss -50.0 Drains No Pathology None sent Complications No immediate complications Condition Stable Disposition PACU [facility] Billing Surgery - Charge Forward: Surgery Billing
[2021-11-22] MEDS: BRIMONIDINE TARTRATE 0.2% OP SOLN 5 ML BTL 1 DROP EACH EYE (17:13)
[2021-11-22] MEDS: OLOPATADINE 0.1% OPHTH SOLN 5 ML BTL 1 DROP EACH EYE (17:38)
[2021-11-22] MEDS: MORPHINE SULFATE (*CRX) 2 MG/ML INJ IV PUSH (19:50)
[2021-11-22] MEDS: traZODone HCL 50 MG TABLET 100 MG PO (21:04)
[2021-11-22] MEDS: METOPROLOL SUCCINATE EXT REL 25 MG TABCR PO (21:05)
[2021-11-22] MEDS: PANTOPRAZOLE 40 MG TABLET PO (21:06)
[2021-11-22] MEDS: PREGABALIN (*CRX) 75 MG CAPSULE PO (21:06)
[2021-11-22] MEDS: diphenhydrAMINE HCl CAP 25 MG CAPSULE 50 MG PO (21:06)
[2021-11-22] MEDS: oxyCODONE HCL (*CRX) 5 MG TAB IR PO (23:27)
--- NOTE | ~2021-11-23 | XR_ITS ---
EXAMINATION: XR knee LT 2V DATE: 11/22/2021 10:29 CDT INDICATION: Left total knee arthroplasty TECHNIQUE: 2 views left knee FINDINGS: There is a left total knee arthroplasty in expected position. Subcutaneous gas with fluid and air in the joint are consistent with recent surgery. No evidence of periprosthetic fracture. IMPRESSION: 1. Recent left total knee arthroplasty. Reviewed, dictated and finalized at location A.
--- NOTE | ~2021-11-23 | XR_ITS ---
EXAMINATION: XR chest 2V Exam Date/Time: 11/23/2021 19:27 CDT HISTORY: Fever Comparison: 06/29/2009. RESULT: Lines, tubes, and devices: Breast augmentation. Lungs and pleura: Clear. Cardiomediastinal silhouette: Stable cardiomediastinal silhouette. Other: No acute osseous or upper abdominal finding. IMPRESSION: No acute cardiopulmonary process. Reviewed, dictated and finalized at location K.
[2021-11-23 01:04] VITALS: BP 135/53; PULSE 68; RESP 16; TEMP 36.4; O2SAT 98
[2021-11-23 04:31] VITALS: BP 132/68; PULSE 71; RESP 16; TEMP 36.8; O2SAT 100
[2021-11-23] MEDS: oxyCODONE HCL (*CRX) 5 MG TAB IR 10 MG PO ×4 (04:41→20:42)
--- NOTE | 2021-11-23 05:08 | PC.NURSE ---
SHUN hose do not fit appropriately, 6in MICHEELT wrap applied bilaterally.
[2021-11-23 06:02] LABS: Basophils Percent Auto 0.4 % (0.2-1.2); Eosinophils Percent Auto 0.1 % (0-4.4); Hematocrit 37.8 % (37.0-47.0); Hemoglobin 12.9 g/dL (12.0-15.0); Immature Granulocyte Absolute 0.03 K/mm3 (0.00-0.031); Immature Granulocyte Percent A 0.4 % (0-0.5); Lymphocytes Absolute Auto 0.81 K/mm3 (0.9-3.2); Lymphocytes Percent Auto 10.1 % (18.3-44.2); Mean Corpuscular HGB Conc 34.1 g/dl (32-36); Mean Corpuscular Hemoglobin 30.7 pg (26-34); Mean Platelet Volume 9.9 fl (7.4-10.4); Monocytes Absolute Auto 0.9 K/mm3 (0.1-0.6); Neutrophils Absolute Auto 6.2 K/mm3 (1.3-6.7); Platelet Count Result 250 k/mm3 (150-375); Red Cell Distribution Width 12.7 % (11.5-14.5)
[2021-11-23 06:14] LABS: Alanine Aminotransferase 15 U/L (6-35); Albumin Level 3.1 g/dL (3.5-5.1); Alkaline Phosphatase 97 U/L (38-126); Anion Gap 3 mmol/L (8-16); Aspartate Amino Transferase 25 U/L (14-36); Bilirubin,Total 0.6 mg/dL (0.2-1.3); Blood Urea Nitrogen 10 mg/dL (7-17); Calcium 7.9 mg/dL (8.4-10.2); Carbon Dioxide 31 mmol/L (22-30); Chloride 103 mmol/L (98-107); Estimated CRCL calculation 98 ml/min; Estimated Glomerular Filt Rate > 60; Glucose 133 mg/dL (65-110); Magnesium 1.8 mg/dL (1.6-2.3); Potassium 3.1 mmol/L (3.4-5.0); Sodium 137 mmol/L (137-145)
[2021-11-23] MEDS: oxyCODONE HCL (*CRX) 5 MG TAB IR PO (06:14)
--- NOTE | 2021-11-23 07:01 | P.CONIM_ITS ---
Assessment and Plan Assessment and plan (1) Status post left knee replacement: Code(s): Z96.652 - Presence of left artificial knee joint Status: Acute Assessment and Plan: * POD 2 * Post op care per ortho * Pain medications: Oxycodone 5-10mg PO Q4H PRN, Tylenol IV x3 bags. * Clinda and vanc x 3 bags * Bowel: Miralax and Senna * Ice pack * DVT per ortho * PT/OT (2) Osteoarthritis of left knee: Qualifiers: Osteoarthritis type: primary Qualified Code(s): M17.12 - Unilateral primary osteoarthritis, left knee Code(s): M17.12 - Unilateral primary osteoarthritis, left knee Status: Acute Assessment and Plan: * see above (3) Mixed hyperlipidemia: Code(s): E78.2 - Mixed hyperlipidemia Status: Acute Assessment and Plan: * continue home medications (4) Essential (primary) hypertension: Code(s): I10 - Essential (primary) hypertension Status: Acute Assessment and Plan: * Current BP 132/68 * Continue Home metoprolol 25 at night, hydrochlorothiazide 25 daily benazepril 40 mg p.o. 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 40meq 1x given PO. Will continue to monitor. HPI Data of Consult Consult date: 11/23/21 Requesting Physician: Thelma Saha PA-C Primary Care Provider: Julius Galvin MD Consult Narrative Narrative: Oneal Echeverria is a 71 year old female SP L TKA on 11/22/21. 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
--- NOTE | 2021-11-23 07:01 | PM.IMCN ---
Assessment and Plan Assessment and plan (1) Status post left knee replacement: Code(s): Z96.652 - Presence of left artificial knee joint Status: Acute Assessment and Plan: POD 2 Post op care per ortho Pain medications: Oxycodone 5-10mg PO Q4H PRN, Tylenol IV x3 bags. Clinda and vanc x 3 bags Bowel: Miralax and Senna Ice pack DVT per ortho PT/OT (2) Osteoarthritis of left knee: Qualifiers: Osteoarthritis type: primary Qualified Code(s): M17.12 - Unilateral primary osteoarthritis, left knee Code(s): M17.12 - Unilateral primary osteoarthritis, left knee Status: Acute Assessment and Plan: see above (3) Mixed hyperlipidemia: Code(s): E78.2 - Mixed hyperlipidemia Status: Acute Assessment and Plan: continue home medications (4) Essential (primary) hypertension: Code(s): I10 - Essential (primary) hypertension Status: Acute Assessment and Plan: Current BP 132/68 Continue Home metoprolol 25 at night, hydrochlorothiazide 25 daily benazepril 40 mg p.o. 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 40meq 1x given PO. Will continue to monitor. HPI Data of Consult Consult date: 11/23/21 Requesting Physician: Thelma Saha PA-C Primary Care Provider: Julius Galvin MD Consult Narrative Narrative: Oneal Echeverria is a 71 year old female SP L TKA on 11/22/21. 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 Rheumatoid arthritis Unspecified osteoarthritis, unspecified site Surgical History Surgical History (Updated 11/23/21 @ 10:04 by Praveena Rizzo PA-C) H/O repair of right rotator cuff History of bladder surgery History of right mastectomy breast reconstructive surgeries History of total left knee replacement (11/22/21) Family History Family History Mother Cerebrovascular accident Hypertension Father Family history of chronic obstructive pulmonary disease Family history of lung cancer Hypertension Family history of emphysema Sibling Hypertension Other Depression Family history of arthritis Family history of malignant neoplasm Social History Social History Smoking status: Never smoker Second hand tobacco smoke exposure: No Alcohol intake: never Substance use: never Substance use type: does not use Living arrangements: with family Gender identity (if verbalized by the patient): Female Spiritual care concerns: No Agree to blood products: Yes Meds Home Medications and Allergies Home Medications Medication Instructions Recorded Confirmed Type diphenhydramine HCl 25 mg capsule 50 mg PO HS
[2021-11-23] MEDS: TIMOLOL MALEATE 0.5% OP SOLN 5 ML BOTTLE 1 DROP EACH EYE ×2 (08:21→16:21)
[2021-11-23] MEDS: CLINDAMYCIN 600 MG/D5W 50 ML 600 MG/50 ML PIGGYBACK 100 MG IVPB (08:21)
[2021-11-23] MEDS: lisinopriL 20 MG TABLET 40 MG PO (08:22)
[2021-11-23] MEDS: polyethylene glycoL 3350 17 GM POWD.PACK PO (08:22)
[2021-11-23] MEDS: LEFLUNOMIDE 20 MG TABLET PO (08:22)
[2021-11-23] MEDS: SENNA/DOCUSATE SODIUM TABLET 2 TAB PO ×2 (08:22→16:22)
[2021-11-23] MEDS: ASPIRIN 81 MG ENTERIC TABLET PO ×2 (08:22→16:22)
[2021-11-23] MEDS: hydroCHLOROthiazide 25 MG TABLET PO (08:22)
[2021-11-23] MEDS: POTASSIUM CHLORIDE 20 MEQ TABLET 40 MEQ PO (08:23)
[2021-11-23] MEDS: predniSONE 5 MG TABLET PO (08:23)
[2021-11-23] MEDS: MELOXICAM 7.5 MG TABLET PO ×2 (08:23→16:22)
[2021-11-23] MEDS: CLOPIDOGREL BISULFATE 75 MG TABLET PO (08:23)
[2021-11-23] MEDS: methylPHENIDATE HCL (*CRX) 10 MG TABLET PO ×2 (08:27→13:05)
[2021-11-23 08:31] VITALS: BP 153/52; PULSE 67; RESP 16; TEMP 37.1; O2SAT 99
[2021-11-23] MEDS: MORPHINE SULFATE (*CRX) 2 MG/ML INJ IV PUSH (08:33)
[2021-11-23] MEDS: OLOPATADINE 0.1% OPHTH SOLN 5 ML BTL 1 DROP EACH EYE (08:34)
[2021-11-23] MEDS: BRIMONIDINE TARTRATE 0.2% OP SOLN 5 ML BTL 1 DROP EACH EYE ×2 (09:46→17:27)
--- NOTE | 2021-11-23 11:34 | WPDANESPN ---
Anes - Prog Note Post-Op Date/Time: 11/23/21 11:34 Vital Signs: Last Vital Signs Temp 37.1 C 11/23/21 08:31 Pulse 67 11/23/21 08:31 Resp 16 11/23/21 08:31 BP 153/52 H 11/23/21 08:31 Pulse Ox 99 11/23/21 08:31 O2 Del Method Room Air 11/23/21 07:23 O2 Flow Rate 2 11/22/21 14:30 Pain Score (VAS): 0 I/O: Intake & Output 11/22/21 11/23/21 11/23/21 23:59 07:59 15:59 Intake Total 450 1550 240 Output Total 100 500 Balance 350 1050 240 Laboratory Tests 11/23/21 05:15 11/23/21 05:15 11/23/21 11/23/21 05:15 05:15 WBC 8.0 RBC 4.20 Hgb 12.9 Hct 37.8 MCV 90.0 MCH 30.7 MCHC 34.1 RDW 12.7 Plt Count 250 MPV 9.9 Immature Gran % (Auto) 0.4 Neut % (Auto) 78.0 H Lymph % (Auto) 10.1 L [place] % (Auto) 11.0 H Eos % (Auto) 0.1 Baso % (Auto) 0.4 Lymph # (Auto) 0.81 L [place] # (Auto) 0.9 H Eos # (Auto) 0.0 Baso # (Auto) 0.0 Abs Immat Gran (auto) 0.03 Absolute Neuts (auto) 6.2 Absolute Nucleated RBC 0.0 Nucleated RBC % 0.0 Sodium 137 Potassium 3.1 L Chloride 103 Carbon Dioxide 31 H Anion Gap 3 L BUN 10 Creatinine 0.40 L Estim Creat Clear Calc 98 Estimated GFR > 60 Glucose 133 H Calcium 7.9 L Magnesium 1.8 Total Bilirubin 0.6 AST 25 ALT 15 Alkaline Phosphatase 97 Total Protein 6.0 L Albumin 3.1 L Patient Feedback: Patient satisfied with anesthetic care.
[2021-11-23] MEDS: CYCLOBENZAPRINE HCL 10 MG TABLET PO (11:41)
--- NOTE | 2021-11-23 12:51 | PCPTNOTE ---
Patient refused treatment this session due to left knee pain. Encouraged patient to participate with therapy, patient continued to refuse.
--- NOTE | 2021-11-23 13:03 | PM.PNORT ---
Progress Note: A&P Assessment and Plan (1) Status post left knee replacement: Code(s): Z96.652 - Presence of left artificial knee joint Status: Acute Plan Postop day 1: Left total knee arthroplasty. Patient tolerated procedure well, however she is having issues with pain control. Pain not well controlled with medications. Patient also states she feels weak. No numbness or tingling. Notes thigh pain that is likely from the tourniquet. No calf pain. She will need to stay another night for pain control. Patient does not feel comfortable going home today. Will re-assess tomorrow. Subjective Subjective Date/Time Seen: 11/23/21 13:03 Interval history: Patient has been having trouble with pain control. Severe pain with ambulation. No other complaints at this time. Exam Narrative: Overweight female. Obviously uncomfortable. No acute distress. A&O x3. Wearing jose wraps bilaterally. Dressing intact with no drainage. Moderate swelling. Small area of ecchymosis. No erythema. No hematoma. ROM limited due to pain. Calf nontender. Neurologic status intact. No varicosities. Distal pulses palpable. Objective Data Vital Signs Vital Signs: Vital Signs - 24 hr 11/22/21 13:30 11/22/21 13:47 11/22/21 14:00 Temperature Pulse Rate 58 L 55 L 54 L Respiratory Rate 18 8 L 10 L Blood Pressure 139/47 L 129/54 L 117/58 L Pulse Oximetry 99 100 100 Oxygen Delivery Nasal Cannula Nasal Cannula Nasal Cannula Oxygen Flow Rate 2 2 2 11/22/21 14:14 11/22/21 14:30 11/22/21 15:01 Temperature 97.6 F Pulse Rate 56 L 51 L 61 Respiratory Rate 15 10 L 14 Blood Pressure 121/55 L 137/46 L 145/45 H Pulse Oximetry 100 97 99 Oxygen Delivery Nasal Cannula Nasal Cannula Oxygen Flow Rate 2 2 11/22/21 15:31 11/22/21 15:09 11/22/21 16:31 Temperature 97.6 F 97.5 F L Pulse Rate 95 55 L Respiratory Rate 14 14 Blood Pressure 140/51 L 134/70 Pulse Oximetry 99 98 Oxygen Delivery Room Air Oxygen Flow Rate 11/22/21 17:30 11/22/21 21:05 11/22/21 21:20 Temperature 97.8 F 97.8 F Pulse Rate 56 L 68 61 Respiratory Rate 16 14 Blood Pressure 130/64 130/55 L Pulse Oximetry 93 94 Oxygen Delivery Oxygen Flow Rate 11/23/21 01:04 11/23/21 04:31 11/23/21 07:23 Temperature 97.6 F 98.2 F Pulse Rate 68 71 Respiratory Rate 16 16 Blood Pressure 135/53 L 132/68 Pulse Oximetry 98 100 Oxygen Delivery Room Air Oxygen Flow Rate 11/23/21 08:31 Temperature 98.8 F Pulse Rate 67 Respiratory Rate 16 Blood Pressure 153/52 H Pulse Oximetry 99 Oxygen Delivery Oxygen Flow Rate Intake/Output Intake/Output: Intake & Output 11/20/21 11/21/21 11/22/21 11/23/21 23:59 23:59 23:59 23:59 Intake Total 900 1790 Output Total 100 500 Balance 800 1290 Meds/Results Medications: Active Medications Generic Name Dose Route Start Last Admin Trade Name Freq PRN Reason Stop Dose Admin Aspirin 81 mg 11/22/21 17:00 11/23/21 08:22 Aspirin 81 Mg Enteric Tablet PO 81 mg BID NUVIA Administration Brimonidine Tartrate 1 drop 11/22/21 17:00 11/23/21 09:46 Brimonidine Tartrate 0.2% Op Soln 5 Ml Btl EACH EYE 1 drop BID NUVIA Administration Clopidogrel Bisulfate 75 mg 11/23/21 09:00 11/23/21 08:23 Clopidogrel Bisulfate 75 Mg Tablet PO 75 mg DAILY NUVIA Administration Cyclobenzaprine HCl 10 mg 11/22/21 14:46 11/23/21 11:41 Cyclobenzaprine Hcl 10 Mg Tablet PO 10 mg Q8H PRN Administration Spasms Diphenhydramine HCl 50 mg 11/22/21 21:00 11/22/21 21:06 Diphenhydramine Hcl Cap 25 Mg Capsule PO 50 mg HS NUVIA Administration Hydrochlorothiazide 25 mg 11/23/21 09:00 11/23/21 08:22 Hydrochlorothiazide 25 Mg Tablet PO 25 mg DAILY NUVIA Administration Leflunomide 20 mg 11/23/21 09:00 11/23/21 08:22 Leflunomide 20 Mg Tablet PO 20 mg DAILY NUVIA Administration Lisinopril 40 mg 11/23/21 09:00 11/23/21 08:22 Lisinopril 20 Mg Tablet PO 40 mg
[2021-11-23] MEDS: CALCIUM CARBONATE (TUMS) 500 MG (200 MG ELEMENTAL) PO (14:18)
[2021-11-23 16:06] VITALS: BP 136/82; PULSE 79; RESP 18; TEMP 37.7; O2SAT 99
--- NOTE | 2021-11-23 16:53 | P.PNIM_ITS ---
Progress Note: A&P Assessment and Plan (1) Status post left knee replacement: Code(s): Z96.652 - Presence of left artificial knee joint <Thelma JaramilloOrlando Yifan, PA-C - Last Filed: 11/23/21 17:05> Status: Acute <Thelma BrownNATALIE ayers-C - Last Filed: 11/23/21 17:05> Assessment and Plan: * POD 2 * Pain medications per orthopedics, patient endorses her pain is well controlled. * Clinda and vanc x 3 bags * Bowel: Miralax and Senna * Ice packs * DVT prophylaxis per ortho * PT/OT is progressing well. <Thelma JaramilloNATALIE Elizabeth-C - Last Filed: 11/23/21 17:05> (2) Osteoarthritis of left knee: Qualifiers: Osteoarthritis type: primary Qualified Code(s): M17.12 - Unilateral primary osteoarthritis, left knee <Thelma JaramilloNATALIE Elizabeth-C - Last Filed: 11/23/21 17:05> Code(s): M17.12 - Unilateral primary osteoarthritis, left knee <Thelma JaramilloOrlando Yifan, PA-C - Last Filed: 11/23/21 17:05> Status: Acute <Thelma BrownNATALIE ayers-C - Last Filed: 11/23/21 17:05> Assessment and Plan: * see above <Thelma ClintOrlando Yifan, PA-C - Last Filed: 11/23/21 17:05> (3) Mixed hyperlipidemia: Code(s): E78.2 - Mixed hyperlipidemia <Thelma ClintNATALIE Elizabeth-C - Last Filed: 11/23/21 17:05> Status: Acute <Thelma ROrlando Saha PA-C - Last Filed: 11/23/21 17:05> Assessment and Plan: * continue home medications <NATALIE Unger-C - Last Filed: 11/23/21 17:05> (4) Essential (primary) hypertension: Code(s): I10 - Essential (primary) hypertension <Thelma Saha PA-C - Last Filed: 11/23/21 17:05> Status: Acute <NATALIE Unger-C - Last Filed: 11/23/21 17:05> Assessment and Plan: * Current BP 132/68 * Continue Home metoprolol 25 at night, hydrochlorothiazide 25 daily benazepril 40 mg p.o. daily * Trend Blood pressure * Adjust therapy as indicated <Thelma JaramilloOrlando YifanMARIELOS ayersC - Last Filed: 11/23/21 17:05> (5) On intermediate manager drug therapy: Code(s): Z79.899 - Other half-way (current) drug therapy <Thelma Mandy Yifan, PA-C - Last Filed: 11/23/21 17:05> Status: Acute <Thelma BrownNATALIE ayers-C - Last Filed: 11/23/21 17:05> Assessment and Plan: * on clopidogrel for stroke * continue clopidogrel for now <Thelma JaramilloMARIELOS ElizabethC - Last Filed: 11/23/21 17:05> (6) Allergies: Code(s): T78.40XA - Allergy, unspecified, initial encounter <Thelma Mandy YifanMARIELOS ayersC - Last Filed: 11/23/21 17:05> Status: Acute <Thelma JaramilloOrlando Yifan, PA-C - Last Filed: 11/23/21 17:05> Assessment and Plan: Patient continues to complain of mildly itchy eyes with some crust formation. * Added naphcon-a for allergic conjunctivitis, will continue to monitor for worsening of symptoms and adjust treatment as needed for bacterial conjunctivitis. <Thelma Mandy Yifan, PA-C - Last Filed: 11/23/21 17:05> (7) Hypokalemia: Code(s): E87.6 - Hypokalemia <Thelma JaramilloOrlando Yifan, PA-C - Last Filed: 11/23/21 17:05> Status: Acute <Thelma JaramilloOrlando Yifan, PA-C - Last Filed: 11/23/21 17:05> Assessment and Plan: K 3.1 this AM. 40meq 1x given PO. Will continue to monitor. <Thelma NATALIE Gallardo-C - Last Filed: 11/23/21 17:05> Subjective Date/time seen: 11/23/21 16:53 Ms. Echeverria is doing well today. She was performing physical therapy during my exam. She said she had some pain in her knee but resolved after she got her pain pill. She denies chest pain, shortness a breath, lower extremity swelling p
--- NOTE | 2021-11-23 16:53 | PM.IMPN ---
Progress Note: A&P Assessment and Plan (1) Status post left knee replacement: Code(s): Z96.652 - Presence of left artificial knee joint <Thelma BrownNATALIE ayers-C - Last Filed: 11/23/21 17:05> Status: Acute <Thelma Brownarmen PA-C - Last Filed: 11/23/21 17:05> Assessment and Plan: POD 2 Pain medications per orthopedics, patient endorses her pain is well controlled. Clinda and vanc x 3 bags Bowel: Miralax and Senna Ice packs DVT prophylaxis per ortho PT/OT is progressing well. <Thelma JaramilloOrlando Saha PA-C - Last Filed: 11/23/21 17:05> (2) Osteoarthritis of left knee: Qualifiers: Osteoarthritis type: primary Qualified Code(s): M17.12 - Unilateral primary osteoarthritis, left knee <Thelma JaramilloOrlando Saha PA-C - Last Filed: 11/23/21 17:05> Code(s): M17.12 - Unilateral primary osteoarthritis, left knee <Thelma JaramilloOrlando Yifan, PA-C - Last Filed: 11/23/21 17:05> Status: Acute <Thelma Brownarmen PA-C - Last Filed: 11/23/21 17:05> Assessment and Plan: see above <Thelma JaramilloOrlando Yifan, PA-C - Last Filed: 11/23/21 17:05> (3) Mixed hyperlipidemia: Code(s): E78.2 - Mixed hyperlipidemia <Thelma JaramilloOrlando Saha PA-C - Last Filed: 11/23/21 17:05> Status: Acute <Thelma JaramilloOrlando Yifan, PA-C - Last Filed: 11/23/21 17:05> Assessment and Plan: continue home medications <Thelma ROrlando Saha PA-C - Last Filed: 11/23/21 17:05> (4) Essential (primary) hypertension: Code(s): I10 - Essential (primary) hypertension <Thelma ClintOrlando Saha PA-C - Last Filed: 11/23/21 17:05> Status: Acute <Thelma ROrlando Saha PA-C - Last Filed: 11/23/21 17:05> Assessment and Plan: Current BP 132/68 Continue Home metoprolol 25 at night, hydrochlorothiazide 25 daily benazepril 40 mg p.o. daily Trend Blood pressure Adjust therapy as indicated <Thelma Saha PA-C - Last Filed: 11/23/21 17:05> (5) On fpc drug therapy: Code(s): Z79.899 - Other fpc (current) drug therapy <Thelma Saha PA-C - Last Filed: 11/23/21 17:05> Status: Acute <Thelma Saha PA-C - Last Filed: 11/23/21 17:05> Assessment and Plan: on clopidogrel for stroke continue clopidogrel for now <Thelma Saha PA-C - Last Filed: 11/23/21 17:05> (6) Allergies: Code(s): T78.40XA - Allergy, unspecified, initial encounter <Thelma Saha PA-C - Last Filed: 11/23/21 17:05> Status: Acute <Thelma Saha PA-C - Last Filed: 11/23/21 17:05> Assessment and Plan: Patient continues to complain of mildly itchy eyes with some crust formation. Added naphcon-a for allergic conjunctivitis, will continue to monitor for worsening of symptoms and adjust treatment as needed for bacterial conjunctivitis. <Thelma Saha PA-C - Last Filed: 11/23/21 17:05> (7) Hypokalemia: Code(s): E87.6 - Hypokalemia <Thelma Saha PA-C - Last Filed: 11/23/21 17:05> Status: Acute <Thelma Saha PA-C - Last Filed: 11/23/21 17:05> Assessment and Plan: K 3.1 this AM. 40meq 1x given PO. Will continue to monitor. <Thelma Saha PA-C - Last Filed: 11/23/21 17:05> Subjective Date/time seen: 11/23/21 16:53 Ms. Echeverria is doing well today. She was performing physical therapy during my exam. She said she had some pain in her knee but resolved after she got her pain pill. She denies chest pain, shortness a breath, lower extremity swelling pain. (aside from her knee pain from operation). She has no concerns for me aside from itchy eyes due to some kind of allergic reaction. Will continue to follow this patient as a consult. <Thelma Saha PA-C - Last Filed: 11/23/21 17:05> Review of Systems Review of Systems: All systems reviewed & are unremarkable except as noted in HPI and below <Thelma Saha PA-C - Last Filed: 11/23/21 17:05> Exam Narrative:
[2021-11-23 18:49] VITALS: TEMP 37.7
[2021-11-23] MEDS: ACETAMINOPHEN 325 MG TABLET 650 MG PO (18:49)
[2021-11-23] MEDS: diphenhydrAMINE HCl CAP 25 MG CAPSULE 50 MG PO (20:52)
[2021-11-23] MEDS: PREGABALIN (*CRX) 75 MG CAPSULE PO (20:53)
[2021-11-23] MEDS: NAPHAZOLINE/PHENIRAMINE OPHTH SOLN 5 ML BOTTLE 1 DROP EACH EYE (20:54)
[2021-11-23] MEDS: traZODone HCL 50 MG TABLET 100 MG PO (20:55)
[2021-11-23] MEDS: PANTOPRAZOLE 40 MG TABLET PO (20:55)
[2021-11-23 20:56] VITALS: BP 116/49; PULSE 71; PULSE 79; RESP 16; TEMP 37; O2SAT 99
[2021-11-23] MEDS: METOPROLOL SUCCINATE EXT REL 25 MG TABCR PO (20:56)
[2021-11-24 02:08] VITALS: BP 137/69; PULSE 56; RESP 14; TEMP 37.2; O2SAT 96
[2021-11-24 02:54] LABS: Appearance Urine Clear (Clear); Bilirubin Urine Negative (Negative); Blood Urine Negative (Negative); Color Urine Yellow (Yellow); Glucose Urine UA Negative (Negative); Ketones Urine 2+ mg/dL (Negative); Leukocyte Esterase Ur Negative LEU/UL (Negative); Nitrate Urine Negative (Negative); Protein Urine Negative (Negative); Urobilinogen Urine 0.2 mg/dL (<2.0)
[2021-11-24 02:59] LABS: Add Urine Microscopic? YES; Mucus Urine Rare /lpf; RBC Urine 0-2 /hpf (0-2); Squamous Epithelial Cell Urine Rare /hpf (Few); WBC Urine 0-3 /hpf
[2021-11-24 03:55] VITALS: TEMP 37.8
[2021-11-24] MEDS: ACETAMINOPHEN 325 MG TABLET 650 MG PO (03:55)
[2021-11-24] MEDS: oxyCODONE HCL (*CRX) 5 MG TAB IR PO (03:56)
[2021-11-24 05:19] VITALS: TEMP 37.6
[2021-11-24] MEDS: oxyCODONE HCL (*CRX) 5 MG TAB IR 10 MG PO ×3 (05:20→13:21)
[2021-11-24 05:21] VITALS: BP 146/60; PULSE 84; RESP 18; O2SAT 98
--- NOTE | 2021-11-24 07:02 | P.PNIM_ITS ---
Progress Note: A&P Assessment and Plan (1) Status post left knee replacement: Code(s): Z96.652 - Presence of left artificial knee joint <Thelma ClintMARIELOS ElizabethC - Last Filed: 11/24/21 14:42> Status: Acute <Thelma ClintNATALIE Elizabeth-C - Last Filed: 11/24/21 14:42> Assessment and Plan: * POD 3 * Pain medications per orthopedics, patient stayed for additional pain control per ortho yesterday. * Clinda and vanc x 3 bags * Bowel: Miralax and Senna * Ice packs * DVT? prophylaxis per ortho * PT/OT is progressing well, though she does have some pain. <MARIELOS UngerC - Last Filed: 11/24/21 14:42> (2) Osteoarthritis of left knee: Qualifiers: Osteoarthritis type: primary Qualified Code(s): M17.12 - Unilateral primary osteoarthritis, left knee <NATALIE Unger-C - Last Filed: 11/24/21 14:42> Code(s): M17.12 - Unilateral primary osteoarthritis, left knee <Thelma ClintNATALIE Elizabeth-C - Last Filed: 11/24/21 14:42> Status: Acute <NATALIE Unger-C - Last Filed: 11/24/21 14:42> Assessment and Plan: See above <NATALIE Unger-C - Last Filed: 11/24/21 14:42> (3) Mixed hyperlipidemia: Code(s): E78.2 - Mixed hyperlipidemia <NATALIE Unger-C - Last Filed: 11/24/21 14:42> Status: Acute <NATALIE Unger-C - Last Filed: 11/24/21 14:42> Assessment and Plan: Continue home meds. <NATALIE Unger-C - Last Filed: 11/24/21 14:42> (4) Essential (primary) hypertension: Code(s): I10 - Essential (primary) hypertension <NATALIE Unger-C - Last Filed: 11/24/21 14:42> Status: Acute <NATALIE Unger-C - Last Filed: 07/21/22 14:42> Assessment and Plan: BP 146/60 today. Will continue home metoprolol 25 at night, hydrochlorothiazide 25 daily, and benazepril 40 mg p.o. daily. Trend blood pressures Adjust as indicated <Thelma JaramilloOrlando YifanMARIELOS ayersC - Last Filed: 11/24/21 14:42> (5) On health physicist drug therapy: Code(s): Z79.899 - Other health physicist (current) drug therapy <Thelma ClintMARIELOS ElizabethC - Last Filed: 11/24/21 14:42> Status: Acute <Thelma JaramilloOrlando Yifan, PA-C - Last Filed: 11/24/21 14:42> Assessment and Plan: Continue clopidogrel <Thelma JaramilloMARIELOS ElizabethC - Last Filed: 11/24/21 14:42> (6) Allergies: Code(s): T78.40XA - Allergy, unspecified, initial encounter <MARIELOS UngerC - Last Filed: 11/24/21 14:42> Status: Acute <Thelma JaramilloOrlando Yifan, PA-C - Last Filed: 11/24/21 14:42> Assessment and Plan: Patient continues to complain of mildly itchy eyes with some crust formation.? * Added naphcon-a for allergic conjunctivitis, will continue to monitor for worsening of symptoms and adjust treatment as needed for bacterial conjunctivitis. <MARIELOS UngerC - Last Filed: 11/24/21 14:42> (7) Hypokalemia: Code(s): E87.6 - Hypokalemia <Thelma JaramilloOrlando Yifan, PA-C - Last Filed: 11/24/21 14:42> Status: Acute <Thelma ROrlando Yifan, PA-C - Last Filed: 11/24/21 14:42> Assessment and Plan: K: 3.0, patient currently asymptomatic. will continue to monitor. <Thelma ClintMARIELOS ElizabethC - Last Filed: 11/24/21 14:42> Subjective Date/time seen: 11/24/21 07:02 I evaluated this patient at the end of her physical therapy session. Her left knee was having significant pain at that time, and she had just received her pain medication. She was ambulating with a walker and is able to independently transfer to the bed under my observation. She denies chest pain, shortness a breath, palpitations, lower extrem
--- NOTE | 2021-11-24 07:02 | PM.IMPN ---
Progress Note: A&P Assessment and Plan (1) Status post left knee replacement: Code(s): Z96.652 - Presence of left artificial knee joint <NATALIE Unger-C - Last Filed: 11/24/21 14:42> Status: Acute <Thelma ClintNATALIE Eliazbeth-C - Last Filed: 11/24/21 14:42> Assessment and Plan: POD 3 Pain medications per orthopedics, patient stayed for additional pain control per ortho yesterday. Clinda and vanc x 3 bags Bowel: Miralax and Senna Ice packs DVT? prophylaxis per ortho PT/OT is progressing well, though she does have some pain. <NATALIE Unger-C - Last Filed: 11/24/21 14:42> (2) Osteoarthritis of left knee: Qualifiers: Osteoarthritis type: primary Qualified Code(s): M17.12 - Unilateral primary osteoarthritis, left knee <NATALIE Unger-C - Last Filed: 11/24/21 14:42> Code(s): M17.12 - Unilateral primary osteoarthritis, left knee <Thelma ClintNATALIE Elizabeth-C - Last Filed: 11/24/21 14:42> Status: Acute <NATALIE Unger-C - Last Filed: 11/24/21 14:42> Assessment and Plan: See above <NATALIE Unger-C - Last Filed: 11/24/21 14:42> (3) Mixed hyperlipidemia: Code(s): E78.2 - Mixed hyperlipidemia <NATALIE Unger-C - Last Filed: 11/24/21 14:42> Status: Acute <NATALIE Unger-C - Last Filed: 11/24/21 14:42> Assessment and Plan: Continue home meds. <NATALIE Unger-C - Last Filed: 11/24/21 14:42> (4) Essential (primary) hypertension: Code(s): I10 - Essential (primary) hypertension <NATALIE Unger-C - Last Filed: 11/24/21 14:42> Status: Acute <NATALIE Unger-C - Last Filed: 11/24/21 14:42> Assessment and Plan: BP 146/60 today. Will continue home metoprolol 25 at night, hydrochlorothiazide 25 daily, and benazepril 40 mg p.o. daily. Trend blood pressures Adjust as indicated <Thelma Saha PA-C - Last Filed: 11/24/21 14:42> (5) On long term care social worker drug therapy: Code(s): Z79.899 - Other [facility] (current[facility] drug therapy <MARIELOS UngerC - Last Filed: 11/24/21 14:42> Status: Acute <Thelma RNATALIE Elizabeth-C - Last Filed: 11/24/21 14:42> Assessment and Plan: Continue clopidogrel <Thelma MARIELOS GallardoC - Last Filed: 11/24/21 14:42> (6) Allergies: Code(s): T78.40XA - Allergy, unspecified, initial encounter <Thelma Saha PA-C - Last Filed: 11/24/21 14:42> Status: Acute <Thelma ROrlando Yifan, PA-C - Last Filed: 11/24/21 14:42> Assessment and Plan: Patient continues to complain of mildly itchy eyes with some crust formation.? Added naphcon-a for allergic conjunctivitis, will continue to monitor for worsening of symptoms and adjust treatment as needed for bacterial conjunctivitis. <MARIELOS UngerC - Last Filed: 11/24/21 14:42> (7) Hypokalemia: Code(s): E87.6 - Hypokalemia <Thelma MARIELOS GallardoC - Last Filed: 11/24/21 14:42> Status: Acute <NATALIE Unger-C - Last Filed: 11/24/21 14:42> Assessment and Plan: K: 3.0, patient currently asymptomatic. will continue to monitor. <MARIELOS UngerC - Last Filed: 11/24/21 14:42> Subjective Date/time seen: 11/24/21 07:02 I evaluated this patient at the end of her physical therapy session. Her left knee was having significant pain at that time, and she had just received her pain medication. She was ambulating with a walker and is able to independently transfer to the bed under my observation. She denies chest pain, shortness a breath, palpitations, lower extremity swelling, calf pain. She reports the pain is isolated to her knee. She states her itchy crusted eyes have improved after eyedrops. She has a recommendation from her PCM for which eyedrops to take after her discharge and she will pursue this. <Thelma Saha PA-C - Last Filed: 11/24/21 14:42> Review of Systems Review of Systems: All systems
[2021-11-24 07:38] LABS: Basophils Absolute Auto 0.1 K/mm3 (0.0-0.1); Basophils Percent Auto 0.6 % (0.2-1.2); Eosinophils Percent Auto 0.4 % (0-4.4); Hematocrit 35.1 % (37.0-47.0); Hemoglobin 12.2 g/dL (12.0-15.0); Immature Granulocyte Absolute 0.05 K/mm3 (0.00-0.031); Immature Granulocyte Percent A 0.6 % (0-0.5); Lymphocytes Absolute Auto 1.01 K/mm3 (0.9-3.2); Lymphocytes Percent Auto 11.2 % (18.3-44.2); Mean Corpuscular HGB Conc 34.8 g/dl (32-36); Mean Corpuscular Hemoglobin 31.1 pg (26-34); Mean Corpuscular Volume 89.5 fl (80-100); Mean Platelet Volume 9.6 fl (7.4-10.4); Monocytes Absolute Auto 1.2 K/mm3 (0.1-0.6); Monocytes Percent Auto 13.6 % (2.6-8.5); Neutrophils Absolute Auto 6.6 K/mm3 (1.3-6.7); Neutrophils Percent Auto 73.6 % (45.5-73.1); Platelet Count Result 237 k/mm3 (150-375); Red Blood Count 3.92 M/mm3 (4.2-5.4)
[2021-11-24 07:49] LABS: Alanine Aminotransferase 17 U/L (6-35); Albumin Level 2.9 g/dL (3.5-5.1); Alkaline Phosphatase 92 U/L (38-126); Anion Gap 2 mmol/L (8-16); Aspartate Amino Transferase 25 U/L (14-36); Bilirubin,Total 0.8 mg/dL (0.2-1.3); Blood Urea Nitrogen 7 mg/dL (7-17); Calcium 8.6 mg/dL (8.4-10.2); Carbon Dioxide 27 mmol/L (22-30); Chloride 107 mmol/L (98-107); Estimated CRCL calculation 98 ml/min; Estimated Glomerular Filt Rate > 60; Glucose 104 mg/dL (65-110); Sodium 136 mmol/L (137-145)
[2021-11-24] MEDS: CLOPIDOGREL BISULFATE 75 MG TABLET PO (08:49)
[2021-11-24] MEDS: polyethylene glycoL 3350 17 GM POWD.PACK PO (08:49)
[2021-11-24] MEDS: LEFLUNOMIDE 20 MG TABLET PO (08:49)
[2021-11-24] MEDS: SENNA/DOCUSATE SODIUM TABLET 2 TAB PO (08:49)
[2021-11-24] MEDS: predniSONE 5 MG TABLET PO (08:49)
[2021-11-24] MEDS: MELOXICAM 7.5 MG TABLET PO (08:49)
[2021-11-24] MEDS: lisinopriL 20 MG TABLET 40 MG PO (08:49)
[2021-11-24] MEDS: ASPIRIN 81 MG ENTERIC TABLET PO (08:50)
[2021-11-24] MEDS: BRIMONIDINE TARTRATE 0.2% OP SOLN 5 ML BTL 1 DROP EACH EYE (08:50)
[2021-11-24] MEDS: hydroCHLOROthiazide 25 MG TABLET PO (08:50)
[2021-11-24] MEDS: methylPHENIDATE HCL (*CRX) 10 MG TABLET PO ×2 (08:52→12:07)
[2021-11-24 09:17] VITALS: O2SAT 98
[2021-11-24] MEDS: TIMOLOL MALEATE 0.5% OP SOLN 5 ML BOTTLE 1 DROP EACH EYE (09:20)
[2021-11-24 10:00] VITALS: BP 122/60; PULSE 96; RESP 16; TEMP 36.1; O2SAT 100
[2021-11-24] MEDS: ACETAMINOPHEN 500 MG TABLET 1000 MG PO (10:22)
[2021-11-24] MEDS: NAPHAZOLINE/PHENIRAMINE OPHTH SOLN 5 ML BOTTLE 1 DROP EACH EYE ×2 (10:23→12:07)
--- NOTE | 2021-11-24 12:04 | PM.DS ---
DS: Admitting Diagnosis Discharge Date 11/24/21 Admitting Diagnosis OA knee Left DS: Discharge Diagnosis Discharge Diagnosis (1) Status post left knee replacement: Code(s): Z96.652 - Presence of left artificial knee joint Status: Acute Assessment and Plan: Postop day 2: Left total knee arthroplasty. Patient tolerated procedure well. Pain control issues yesterday. Pain manageable with pain medication today. No numbness or tingling. She notes she is feeling much better today,. We had a lengthy discussion regarding postoperative wound care, limitations, expectations, and exercises. Patient shows good understanding. He has had initial physical therapy and is tolerating it well. DVT prophylaxis: 81 mg baby aspirin b.i.d. for 14 days. Continue Clopidogrel. Pain medication: Percocet. Prednisone. Tylenol. Patient has followup appointment with Dr. Beard in 3 weeks. DS: Summary Hospital Course Reason for hospitalization: Total knee arthroplasty Hospital Course: Patient tolerated procedure well. Had pain control issues yesterday. Better controlled today. Has had initial PT/OT. Status at Discharge Functional status at discharge: uses cane/walker Overall status at discharge: patient is progressing back to baseline Time Spent with Patient Time attestation: Total time spent providing and/or coordinating discharge services: Exam Narrative: Overweight 71 y/o female. . Resting comfortably in bed. Wearing compression socks bilaterally. Dressing intact with no drainage. Moderate swelling. No ecchymosis. No erythema. No hematoma. Range of motion limited due to pain. Calf nontender. Neurologic status intact. No varicosities. Distal pulses palpable. DS: Data Data Completed and Pending Labs on day of discharge: Labs from last 24 hours 11/24/21 11/24/21 11/24/21 07:28 07:28 02:44 WBC 9.0 RBC 3.92 L Hgb 12.2 Hct 35.1 L MCV 89.5 MCH 31.1 MCHC 34.8 RDW 13.0 Plt Count 237 MPV 9.6 Immature Gran % (Auto) 0.6 H Neut % (Auto) 73.6 H Lymph % (Auto) 11.2 L [place] % (Auto) 13.6 H Eos % (Auto) 0.4 Baso % (Auto) 0.6 Lymph # (Auto) 1.01 [place] # (Auto) 1.2 H Eos # (Auto) 0.0 Baso # (Auto) 0.1 Abs Immat Gran (auto) 0.05 H Absolute Neuts (auto) 6.6 Absolute Nucleated RBC 0.0 Nucleated RBC % 0.0 Sodium 136 L Potassium 3.0 L Chloride 107 Carbon Dioxide 27 Anion Gap 2 L BUN 7 Creatinine 0.40 L Estim Creat Clear Calc 98 Estimated GFR > 60 Glucose 104 Calcium 8.6 Total Bilirubin 0.8 AST 25 ALT 17 Alkaline Phosphatase 92 Total Protein 6.0 L Albumin 2.9 L Urine Color Yellow Urine Appearance Clear Urine pH 7.0 Ur Specific [place] 1.020 Urine Protein Negative Urine Glucose (UA) Negative Urine Ketones 2+ H Ur Blood (Man) Negative Urine Nitrate Negative Urine Bilirubin Negative Urine Urobilinogen 0.2 Leukocyte Esterase Rfl Negative Urine RBC 0-2 Urine WBC 0-3 Ur Squamous Epith Cells Rare Urine Mucus Rare Discharge Plan Discharge Attending physician on discharge: Uche Beard Consulting providers: Thelma Saha ; Carri Johnson Discharging Clinician: Khalida Loving Patient Disposition: Home, Self-Care Activity: september shower Diet: as tolerated Wound Care Instructions: follow printed instructions Discharge Instructions: See green instruction sheets. No meloxicam due to interaction with Clopidogrel. Patient Instructions: Antibiotic Form, Clopidogrel (By mouth), Precautions after Total Joint Replacement Surgery (DC), Knee Replacement (DC) Stand Alone Forms: General Discharge Information Follow-up/Referrals: Khalida Loving PA [Physician Director Data Processing] - Discharge Medications: New oxycodone-acetaminophen 5-325 mg tablet 1 - 2 tablet PO Q4-6H MDD 6 PRN (Reason: pain)
[2021-11-24] MEDS: CALCIUM CARBONATE (TUMS) 500 MG (200 MG ELEMENTAL) PO (13:21)
== END 2021-11-24 14:27 | disposition home or self-care (01) ==
LOC: ANHSURGERY 13:57 → ANH2MED 13:57
PROVIDERS: Family Medicine; Nurse Practitioner; Student in an Organized Health Care Education/Training Program; Admitting Provider Orthopaedic Surgery; PCP Emergency Medicine; Visit Provider Orthopaedic Surgery
PROC: (CPT 27447; principal; 2021-11-22 07:30)
DX: M17.12 Unilateral primary osteoarthritis, left knee (principal); M25.562 Pain in left knee; G89.18 Other acute postprocedural pain; M54.50 Low back pain, unspecified; F41.9 Anxiety disorder, unspecified; F32.A Depression, unspecified; Z86.16 Personal history of COVID-19; T78.40XA Allergy, unspecified, initial encounter; I10 Essential (primary) hypertension; M79.7 Fibromyalgia; Z85.3 Personal history of malignant neoplasm of breast; Z85.820 Personal history of malignant melanoma of skin; Z86.73 Personal history of transient ischemic attack (TIA), and cerebral infarction without residual deficits; E78.2 Mixed hyperlipidemia; E87.6 Hypokalemia; E66.9 Obesity, unspecified; Z68.33 Body mass index [BMI] 33.0-33.9, adult; M06.9 Rheumatoid arthritis, unspecified; Z80.1 Family history of malignant neoplasm of trachea, bronchus and lung; Z79.1 Long term (current) use of non-steroidal anti-inflammatories (NSAID); Z79.891 Long term (current) use of opiate analgesic; Z79.51 Long term (current) use of inhaled steroids; Z79.02 Long term (current) use of antithrombotics/antiplatelets; Z79.899 Other long term (current) drug therapy
CPT/HCPCS: 64447; 27447; 36415; 71046; 73560; 80053; 81001; 83735; 85025; 97110; 97116; 97161; 97165; 97530; 97535; A9270; C1713; C1776; G0378; J0131; J0171; J1100; J1170; J1885; J2250; J2270; J2370; J2405; J2704; J2795; J3010; J3370; J7030; J7120; J7512

== ENCOUNTER 2021-12-05 14:28 | Outpatient (NON) | payer MEDICARE, OTHER, SELFPAY ==
[2021-12-05 14:55] LABS: Appearance Urine Clear (Clear); Bilirubin Urine 1+ (Negative); Blood Urine Negative (Negative); Glucose Urine UA Negative (Negative); Ketones Urine 1+ mg/dL (Negative); Leukocyte Esterase Ur Negative LEU/UL (Negative); Nitrate Urine Negative (Negative); Protein Urine 1+ mg/dL (Negative); Specific Grav Ur >= 1.030 (1.001-1.035); Urobilinogen Urine 0.2 mg/dL (<2.0); pH Urine 5.5 (5.0-9.0)
[2021-12-05 14:59] LABS: Add Urine Microscopic? YES; Color Urine Dark Yellow (Yellow)
[2021-12-05 15:03] LABS: Calcium Oxalate Crystals Urine Many /hpf; Mucus Urine Heavy /lpf; Squamous Epithelial Cell Urine Few /hpf (Few)
== END 2021-12-05 14:29 | disposition home or self-care (01) ==
PROVIDERS: PCP Emergency Medicine; Visit Provider Physician Assistant
DX: M06.9 Rheumatoid arthritis, unspecified (principal); I10 Essential (primary) hypertension; Z47.1 Aftercare following joint replacement surgery; Z96.652 Presence of left artificial knee joint; R32 Unspecified urinary incontinence
CPT/HCPCS: 81001; 87086; 87088

== ENCOUNTER 2022-01-19 14:18 | Inpatient (IN) | payer MEDICARE, OTHER, SELFPAY ==
--- NOTE | ~2022-01-19 | CT_ITS ---
EXAMINATION: CT brain wo con DATE: 01/19/2022 15:36 INDICATION: Altered mental status. TECHNIQUE: Computed tomography (CT) of the head was performed without intravenous contrast. The mA wa s adjusted according to patient size. Iterative reconstruction technique was employed. The dose-lengt h product was 1210.67 mGy-cm. COMPARISON: Head CT 03/01/2009 FINDINGS: There are old infarcts in the bilateral thalami. There are scattered areas of low attenuati on in the cerebral white matter and bilateral basal ganglia. There is no intracranial hemorrhage, acu te infarction, or abnormal intracranial mass lesion. The ventricles are normal in size. There is mild mucosal thickening in the ethmoid sinuses. The mastoid air cells are normal. There are likely change s of ocular lens replacement surgeries. There are dystrophic calcifications in left anterior superior scalp. IMPRESSION: 1. Old infarcts in the thalami. 2. Worsened extensive nonspecific cerebral white matter disease and disease of the bilateral basal ga nglia, which likely represents chronic small vessel ischemic disease. Reviewed, dictated and finalized at location A. IMPRESSION: 1. Old infarcts in the thalami. 2. Worsened extensive nonspecific cerebral white matter disease and disease of the bilateral basal ganglia, which likely represents chronic small vessel ische james disease.
--- NOTE | ~2022-01-19 | US_ITS ---
EXAMINATION: US carotid duplex BI DATE: 01/20/2022 08:58 INDICATION: Altered mental status TECHNIQUE: Grayscale, color Doppler, and pulsed Doppler images of the cervical carotid arteries were obtained. The degree of vessel stenosis is placed in one of the following categories: normal, <50%, 5 0-69%, >=70% but less than near-occlusion, near-occlusion, or total occlusion. Note that percent sten osis relative to normal distal artery lumen diameter is indirectly measured from velocity measurement s as described by Naldo, et al. Radiology 2003; 229:340-346. COMPARISON: 03/01/09 FINDINGS: RIGHT: The right common carotid artery (CCA) peak systolic velocity (PSV) is 120 cm/s. The right internal ca rotid artery (ICA) PSV is 88 cm/s. The right ICA end-diastolic velocity (EDV) is 13 cm/s. The right I CA/CCA PSV ratio is 0.7. Grayscale and color Doppler images yield an estimate of <50% diameter reduct ion from plaque in the ICA. The external carotid artery (ECA) PSV is 123 cm/s. There is antegrade verónica w in the right vertebral artery. LEFT: The left CCA PSV is 104 cm/s. The left ICA PSV is 106 cm/s. The left ICA EDV is 14 cm/s. The left ICA /CCA PSV ratio is 1.0. Grayscale and color Doppler images yield an estimate of <50% diameter reductio n from plaque in the ICA. The ECA PSV is 133 cm/s. There is antegrade flow in the left vertebral daysi ry. IMPRESSION: 1. <50% stenosis in the right internal carotid artery. 2. <50% stenosis in the left internal carotid artery. Reviewed, dictated and finalized at location A.
--- NOTE | ~2022-01-19 | MR_ITS ---
EXAMINATION: MR brain/brain stem wo/w con DATE: 01/20/2022 08:20 INDICATION: Altered mental status TECHNIQUE: Magnetic resonance imaging (MRI) of the brain and brainstem was performed without and with 15 mL Multihance intravenous contrast. Sequences included sagittal and axial T1-weighted SE, axial d iffusion-weighted FS SE, axial T2*-weighted GRE, axial 3D SWAN, axial T2-weighted FLAIR, and axial T2 -weighted FSE. Postcontrast axial and coronal T1-weighted SE was obtained. Apparent diffusion coeffic ient (ADC) maps were created. COMPARISON: Head CT dated 01/19/2022 and brain MR dated 02/09/2009 FINDINGS: There are no areas of restricted diffusion to suggest acute infarction. Small old lacunar infarcts in the bilateral thalami and in the left peritrigonal and left frontal lobe deep white matter. Again se en are tiny foci of susceptibility artifact on the T2*weighted images at the bilateral thalami consis tent with foci of chronic microhemorrhage. No intracranial mass lesion. Extensive scattered areas of nonspecific increased T2-weighted signal intensity in the cerebral white matter, predominantly involv ing the deep and periventricular white matter. There are no intraparenchymal signal abnormalities see n on the other pulse sequences. The ventricles are symmetric and normal in size. There are no abnorma l extra-axial fluid collections. Flow voids are seen in the cerebral arteries on the T2-weighted sequ ences consistent with their expected patency. Mild mucosal thickening the bilateral ethmoid sinuses. Changes of bilateral intraocular lens replacement. Visualized orbits and soft tissues are unremarkabl e. Small focus of susceptibility artifact associated with some dystrophic calcification the left fron larry scalp. Tiny bilateral mastoid effusions. There are no areas of abnormal enhancement on the post c ontrast images. IMPRESSION: 1. No acute intracranial process. 2. Small old lacunar infarcts in the bilateral thalami as well as the left peritrigonal and left fron larry deep white matter 3. Extensive periventricular predominant white matter T2 hyperintensity consistent with chronic small vessel ischemic disease. Reviewed, dictated and finalized at location A. IMPRESSION: 1. No acute intracranial process. 2. Small old lacunar infarcts in the bilateral thalami as well as the left desiree trigonal and left frontal deep white matter 3. Extensive periventricular predominant white matter T2 hyperintensity consist ent with chronic small vessel ischemic disease.
--- NOTE | 2022-01-19 14:21 | ECG_ITS ---
Measurements Intervals [place] Rate: 79 P: 34 SC: 156 QRS: -1 QRSD: 90 T: 67 QT: 374 QTc: 430 Interpretive Statements SINUS RHYTHM DELAYED PRECORDIAL R/S TRANSITION LEFT VENTRICULAR HYPERTROPHY AND ST-T CHANGE CONSIDER INFERIOR INFARCT, AGE INDETERMINATE ABNORMAL ECG COMPARED TO ECG 08/24/2021 11:30:41 HEART RATE HAS INCREASED LEFT VENTRICULAR HYPERTROPHY NOW PRESENT Electronically Signed On 01-19-2022 14:40:35 CDT by Sunny Posey D.O.
[2022-01-19 14:22] VITALS: BP 146/63; PULSE 81; RESP 16; TEMP 37.1; O2SAT 98
[2022-01-19 14:37] VITALS: PULSE 82
[2022-01-19 14:51] LABS: Appearance Urine Cloudy (Clear); Bilirubin Urine 2+ (Negative); Blood Urine Negative (Negative); Color Urine Yellow (Yellow); Glucose Urine UA Negative (Negative); Ketones Urine Trace mg/dL (Negative); Leukocyte Esterase Ur Negative LEU/UL (Negative); Nitrate Urine Negative (Negative); Protein Urine 2+ mg/dL (Negative); Specific Grav Ur >= 1.030 (1.001-1.035); Urobilinogen Urine 0.2 mg/dL (<2.0); pH Urine 5.5 (5.0-9.0)
[2022-01-19 14:56] LABS: Bacteria Urine Trace /hpf; Calcium Oxalate Crystals Urine Present /hpf; Hyaline Casts Urine 20-29 /lpf; Mucus Urine Heavy /lpf; RBC Urine 51-75 /hpf (0-2); Squamous Epithelial Cell Urine Occasional /hpf (Few)
[2022-01-19 14:57] LABS: Add Urine Microscopic? YES
[2022-01-19 14:59] LABS: Basophils Absolute Auto 0.1 K/mm3 (0.0-0.1); Basophils Percent Auto 1.4 % (0.2-1.2); Eosinophils Absolute Auto 0.3 K/mm3 (0-0.3); Eosinophils Percent Auto 4.8 % (0-4.4); Hematocrit 44.4 % (37.0-47.0); Immature Granulocyte Absolute 0.04 K/mm3 (0.00-0.031); Immature Granulocyte Percent A 0.6 % (0-0.5); Lymphocytes Absolute Auto 1.26 K/mm3 (0.9-3.2); Lymphocytes Percent Auto 17.6 % (18.3-44.2); Mean Corpuscular HGB Conc 33.8 g/dl (32-36); Mean Corpuscular Hemoglobin 31.7 pg (26-34); Mean Corpuscular Volume 93.9 fl (80-100); Mean Platelet Volume 9.6 fl (7.4-10.4); Monocytes Absolute Auto 0.7 K/mm3 (0.1-0.6); Monocytes Percent Auto 10.2 % (2.6-8.5); Neutrophils Absolute Auto 4.7 K/mm3 (1.3-6.7); Neutrophils Percent Auto 65.4 % (45.5-73.1); Platelet Count Result 255 k/mm3 (150-375); Red Blood Count 4.73 M/mm3 (4.2-5.4); Red Cell Distribution Width 13.5 % (11.5-14.5); White Blood Count 7.2 K/mm3 (4.5-10.0)
[2022-01-19 15:13] LABS: Alanine Aminotransferase 25 U/L (6-35); Albumin Level 3.8 g/dL (3.5-5.1); Alkaline Phosphatase 121 U/L (38-126); Anion Gap 11 mmol/L (8-16); Aspartate Amino Transferase 31 U/L (14-36); Bilirubin,Total 0.7 mg/dL (0.2-1.3); Blood Urea Nitrogen 12 mg/dL (7-17); Carbon Dioxide 23 mmol/L (22-30); Chloride 108 mmol/L (98-107); Estimated CRCL calculation 55 ml/min; Estimated Glomerular Filt Rate > 60; Glucose 103 mg/dL (65-110); Potassium 3.3 mmol/L (3.4-5.0); Sodium 142 mmol/L (137-145)
[2022-01-19 15:20] LABS: Ethanol < 10 mg/dL (<10)
[2022-01-19 15:30] LABS: Amphetamine Screen Urine Negative (Negative); Barbiturate Screen Urine Negative (Negative); Benzodiazepines Screen Urine Negative (Negative); Cannabinoid Screen Urine Negative (Negative); Cocaine Screen Urine Negative (Negative); Methadone Screen Urine Negative (Negative); Opiate Screen Urine Positive (Negative); Phencyclidine Screen Urine Negative (Negative)
[2022-01-19 15:59] LABS: INR 1.1; Prothrombin Time 14.1 Seconds (11.1-14.7)
[2022-01-19 16:00] LABS: Partial Thromboplastin Time 28.3 SECONDS (22.3-36.8)
[2022-01-19 16:42] VITALS: BP 157/87; PULSE 72; RESP 15; O2SAT 94
--- NOTE | 2022-01-19 17:39 | ED.GENADULT ---
HPI - General Adult General Chief complaint: Altered Mental Status Stated complaint: altered mental status Time Seen by Provider: 01/19/22 14:23 History of Present Illness HPI narrative: Patient is a 71-year-old female who presents ER with altered mental status. Apparently around 1230 today EMS and police were dispatched to the home because the patient was acting confused by the report of a neighbor. Police arrived originally and thought she was locked out of her car and helped her unlock it and then called off the ambulance service. Apparently this set off the car alarm and son went out. His mom came back in and demonstrated that she was confused and then her confusion progressed persistently from there. EMS was contacted for second time patient was brought in. She is only oriented x2 at this time. Though she can answer to orientation questions she can not answer any additional questions. She intermittently follows commands. Patient does have history of CVA. Last known normal was earlier this morning. Patient recently had a knee replacement 8 weeks ago. Related Data Home Medications Medication Instructions Recorded Confirmed diphenhydramine HCl 25 mg capsule 50 mg PO HS 03/27/19 12/14/21 (Benadryl) docusate sodium 50 mg capsule 100 mg PO DAILY 03/27/19 12/14/21 (Stool Softener) leflunomide 20 mg tablet 20 mg PO DAILY 03/27/19 12/14/21 methylphenidate HCl 10 mg tablet 10 mg PO TID 03/27/19 12/14/21 (Ritalin) tramadol 50 mg tablet 50 mg PO Q6H PRN Pain 03/27/19 12/14/21 trazodone 100 mg tablet 100 mg PO HS 03/27/19 12/14/21 lorazepam 0.5 mg tablet 0.5 mg PO DAILY PRN Anxiety 07/07/21 12/14/21 brimonidine 0.2 % eye drops 1 drp EACH EYE BID 11/11/21 12/14/21 cetirizine 10 mg tablet (Zyrtec) 10 mg PO DAILY 11/11/21 12/14/21 cholecalciferol (vitamin D3) 25 50 mcg PO DAILY 11/11/21 12/14/21 mcg (1,000 unit) capsule (Vitamin D3) clopidogrel 75 mg tablet 75 mg PO DAILY 11/11/21 12/14/21 hydrochlorothiazide 12.5 mg tablet 25 mg PO DAILY 11/11/21 12/14/21 metoprolol succinate 25 mg 25 mg PO HS 11/11/21 12/14/21 tablet,extended release 24 hr pantoprazole 40 mg tablet,delayed 40 mg PO HS 11/11/21 12/14/21 release pregabalin 75 mg capsule 75 mg PO HS 11/11/21 12/14/21 timolol maleate 0.5 % eye drops 1 drp EACH EYE BID 11/11/21 12/14/21 Allergies Allergy/AdvReac Type Severity Reaction Status Date / Time cefuroxime Allergy Severe Swelling Verified 01/19/22 14:36 animal dander Allergy Intermediate Itching Verified 01/19/22 14:36 cat dander Allergy Intermediate sneezing Verified 01/19/22 14:36 latex Allergy Mild Itching Verified 01/19/22 14:36 mold Allergy Mild sneezing Verified 01/19/22 14:36 erythromycin base AdvReac Mild Nausea Verified 01/19/22 14:36 Review of Systems Review of Systems: ROS unobtainable: Yes unobtainable due to medical condition PMFSH Past Medical History Medical History Acute low back pain Ankylosing spondylitis Anxiety and depression Chronic back pain COVID-19 (~05/2021) Essential (primary) hypertension Fibromyalgia GERD (gastroesophageal reflux disease) History of breast cancer History of malignant melanoma History of stroke Hyperactivity of bladder Mixed hyperlipidemia Obesity On snf drug therapy Rheumatoid arthritis Unspecified osteoarthritis, unspecified site Surgical History Surgical History H/O repair of right rotator cuff History of bladder surgery History of right mastectomy breast reconstructive surgeries History of total left knee replacement (11/22/21) Family History Family History Mother Cerebrovascular accident Hypertension Father Family history of chronic obstructive pulmonary disease Family history of lung cancer Hypertension Family history of emphysema S
[2022-01-19 17:53] VITALS: BP 164/84; PULSE 74; RESP 14; TEMP 36.7; O2SAT 96
[2022-01-19] MEDS: ONDANSETRON INJ 4 MG/2 ML VIAL IV PUSH (18:02)
--- NOTE | 2022-01-19 18:42 | PC.NURSE ---
Hospitalist at bedside at this time.
--- NOTE | 2022-01-19 19:04 | PM.IMHP ---
H&P: HPI History of Present Illness Date/Time: 01/19/22 19:04 Chief Complaint: Altered mental status Narrative: This is a 71-year-old female patient who lives with her son. The patient is on chronic pain medication and has not started on any new medication. The patient recently (8 weeks ago) her left knee replaced which is healing well. The patient was given pain medication for her recover. However the son is at the bedside and he stated that she does not abuse her pain medication. The patient was brought into the ER today because around 12 30 this afternoon the police were dispatched to her home because the patient was acting confused and was reported by the neighbors. The patient was trying to get into her locked car and she was helped into her car to get it unlocked and called off the ambulance service. Apparently the car lung had been set off. EMS was contacted for the 2nd time and the patient was only orientated x2 at that time. She does have a history of having CVA and is on an aspirin. Last known normal was earlier this morning. POTASSIUM IS SLIGHTLY LOW AT 3.3. SODIUM IS NORMAL. CHLORIDE 108. WAS HER URINE HER RBCS WERE 51-75. WBCS ONLY 10-15. SHE HAD HEAVY MUCUS AND HER URINE WAS CLOUDY. Patient was found to be positive for opiates but negative for alcohol. Patient's speech is garbled. She does not appear to have any focal weakness. But she is not following commands either. Head CT was read as the followingOld infarcts in the thalami. 2. Worsened extensive nonspecific cerebral white matter disease and disease of the bilateral basal ganglia, which likely represents chronic small vessel ischemic disease. Patient is being admitted to observation status on the date of service 01/19/2022 Review of Systems Review of Systems: see hpi All systems reviewed & are unremarkable except as noted in HPI and below Constitutional: Constitutional: Reports as per HPI and Reports no additional constitutional complaints Eyes: Eyes: Reports as per HPI and Reports no additional eye complaints ENT: Reports system reviewed and no additional complaints, except as documented and Reports Normal hearing present Cardiovascular: Cardiovascular: Reports no additional cardiovascular complaints Respiratory: Respiratory: Reports no additional respiratory complaints and Reports no additional respiratory complaints Gastrointestinal: Gastrointestinal: Reports as per HPI and Reports no additional gastrointestinal complaints Musculoskeletal: Musculoskeletal: Reports no additional musculoskeletal complaints Integumentary/Breasts: Skin/Breast: Reports system reviewed and no additional complaints, except as docu and Reports as per HPI Neurologic: Reports system reviewed and no additional complaints, except as documented, Reports as per HPI and Reports Normal hearing present Psychiatric: Psychiatric: Reports no additional psychiatric complaints and Reports as per HPI Endocrine: Endocrine: Reports no additional endocrine complaints Hematologic/Lymphatic: Hematologic/Lymphatic: Reports no additional hematologic/lymphatic complaints Allergic/Immunologic: Allergic/Immunologic: Reports no additional allergic/immunologic complaints PMFSH Past Medical History Medical History Acute low back pain Ankylosing spondylitis Anxiety and depression Chronic back pain COVID-19 (~05/2021) Essential (primary) hypertension Fibromyalgia GERD (gastroesophageal reflux disease) History of breast cancer History of malignant melanoma History of stroke Hyperactivity of bladder Mixed hyperlipidemia Obesity On [facility] drug therapy Rheumatoid arthritis Unspecified osteoarthritis, unspecified site Surgical History Surgical History H/O repair of right rotator cuff History of bladder surgery History of right mastectomy breast reconstructive surgeries Histor
[2022-01-19 20:00] VITALS: BP 119/88; PULSE 69; RESP 14; TEMP 35.9; O2SAT 97
--- NOTE | 2022-01-19 20:04 | PC.NURSE ---
pt nydia murphy at bedside. [place] phone number [phone]. Pt nydia.
--- NOTE | 2022-01-19 21:41 | PC.NURSE ---
MRI form completed this shift, pt has hx of knee repair with Leilani x8 weeks ago, pt gave consent for son to complete and sign MRI form for her, daughter Diego Rojo called as well for consent for MRI, Diego stated ok for son to sign as well. Consent verified via telephone with x2 RN's.
[2022-01-19 22:14] VITALS: BMI 29.4
--- NOTE | 2022-01-19 22:45 | PC.NURSE ---
Informed Yarelis WILCOX that medication clarified with daughter, daughter unsure if pt takes aspirin 81 mg po bid or plavix 75 mg po daily, pt hx cva, pt had knee repain x8 weeks ago with Md Beard, informed Yarelis WILCOX unsure if pt needs to be on aspirin 81 mg po bid or plavix 75 mg po daily. Yarelis to look at pt chart and determine. all other medication clarified with daughter, Yarelis STEREOTYPE FINISHER aware.
[2022-01-19 22:54] VITALS: PULSE 69; RESP 14; O2SAT 97
--- NOTE | 2022-01-19 23:10 | PC.NURSE ---
pt family inquired about transferring to [facility]
[2022-01-20] VITALS (11 sets, daily range): BP systolic 110–173; BP diastolic 66–112; PULSE 60–97; RESP 15–20; TEMP 36.4–36.9; O2SAT 95–99
[2022-01-20] MEDS: METOPROLOL SUCCINATE EXT REL 25 MG TABCR PO ×2 (00:08→20:12)
[2022-01-20] MEDS: ACETAMINOPHEN 325 MG TABLET 650 MG PO (00:14)
--- NOTE | 2022-01-20 06:20 | PC.NURSE ---
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
[2022-01-20 07:24] LABS: Basophils Absolute Auto 0.1 K/mm3 (0.0-0.1); Basophils Percent Auto 0.6 % (0.2-1.2); Eosinophils Absolute Auto 0.1 K/mm3 (0-0.3); Eosinophils Percent Auto 1.4 % (0-4.4); Hemoglobin 14.2 g/dL (12.0-15.0); Immature Granulocyte Absolute 0.03 K/mm3 (0.00-0.031); Immature Granulocyte Percent A 0.3 % (0-0.5); Lymphocytes Absolute Auto 1.45 K/mm3 (0.9-3.2); Lymphocytes Percent Auto 16.7 % (18.3-44.2); Mean Corpuscular Hemoglobin 31.1 pg (26-34); Mean Corpuscular Volume 94.3 fl (80-100); Mean Platelet Volume 9.9 fl (7.4-10.4); Monocytes Absolute Auto 0.8 K/mm3 (0.1-0.6); Monocytes Percent Auto 9.2 % (2.6-8.5); Neutrophils Absolute Auto 6.2 K/mm3 (1.3-6.7); Neutrophils Percent Auto 71.8 % (45.5-73.1); Platelet Count Result 232 k/mm3 (150-375); Red Blood Count 4.56 M/mm3 (4.2-5.4); Red Cell Distribution Width 13.3 % (11.5-14.5); White Blood Count 8.7 K/mm3 (4.5-10.0)
[2022-01-20 07:41] LABS: Lactic Acid Reflex 0.9 mmol/L (0.7-2.0)
[2022-01-20 07:43] LABS: Alanine Aminotransferase 20 U/L (6-35); Albumin Level 3.4 g/dL (3.5-5.1); Alkaline Phosphatase 96 U/L (38-126); Anion Gap 10 mmol/L (8-16); Aspartate Amino Transferase 24 U/L (14-36); Bilirubin,Total 0.5 mg/dL (0.2-1.3); Blood Urea Nitrogen 12 mg/dL (7-17); CRP 1.4 mg/dL (<1.0); Calcium 8.9 mg/dL (8.4-10.2); Carbon Dioxide 26 mmol/L (22-30); Chloride 105 mmol/L (98-107); Estimated CRCL calculation 69 ml/min; Estimated Glomerular Filt Rate > 60; Glucose 83 mg/dL (65-110); Magnesium 2.3 mg/dL (1.6-2.3); Potassium 2.9 mmol/L (3.4-5.0); Sodium 141 mmol/L (137-145)
[2022-01-20] MEDS: POTASSIUM CHLORIDE 20 MEQ TABLET 40 MEQ PO ×2 (09:52→12:58)
[2022-01-20] MEDS: ASPIRIN 81 MG ENTERIC TABLET PO (09:52)
[2022-01-20] MEDS: LEFLUNOMIDE 20 MG TABLET PO (09:53)
[2022-01-20] MEDS: DOCUSATE SODIUM 100 MG CAPSULE PO (09:53)
[2022-01-20] MEDS: CLOPIDOGREL BISULFATE 75 MG TABLET PO (09:53)
[2022-01-20] MEDS: methylPHENIDATE HCL (*CRX) 10 MG TABLET PO ×3 (09:53→16:35)
[2022-01-20] MEDS: BRIMONIDINE TARTRATE 0.2% OP SOLN 5 ML BTL 1 DROP EACH EYE ×2 (09:53→20:12)
[2022-01-20] MEDS: lisinopriL 20 MG TABLET 40 MG PO (09:53)
[2022-01-20] MEDS: FLUTICASONE PROPIONATE 0.05% NA SPR 16 GM BTL (*BKC) 2 SPRAY NASAL (09:53)
[2022-01-20] MEDS: TIMOLOL MALEATE 0.5% OP SOLN 5 ML BOTTLE 1 DROP EACH EYE ×2 (09:53→20:12)
[2022-01-20] MEDS: FAMOTIDINE 20 MG TABLET PO ×2 (11:15→20:12)
[2022-01-20 11:43] LABS: Ammonia < 9 umol/L (9-30)
[2022-01-20] MEDS: LORazepam (*CRX) 0.5 MG TABLET PO (12:30)
--- NOTE | 2022-01-20 13:14 | WPDNEURCNPN ---
Consult date: 01/20/22 Time Seen: 13:00 HPI: Oneal Echeverria is a 71 year old female [facility] Past Medical History Medical History Acute low back pain Ankylosing spondylitis Anxiety and depression Chronic back pain COVID-19 (~05/2021) Essential (primary) hypertension Fibromyalgia GERD (gastroesophageal reflux disease) History of breast cancer History of malignant melanoma History of stroke Hyperactivity of bladder Mixed hyperlipidemia Obesity On extermination supervisor drug therapy Rheumatoid arthritis Unspecified osteoarthritis, unspecified site Surgical History Surgical History H/O repair of right rotator cuff History of bladder surgery History of right mastectomy breast reconstructive surgeries History of total left knee replacement (11/22/21) Family History Family History Mother Cerebrovascular accident Hypertension Father Family history of chronic obstructive pulmonary disease Family history of lung cancer Hypertension Family history of emphysema Sibling Hypertension Other Depression Family history of arthritis Family history of malignant neoplasm Social History Social History (Updated 01/19/22 @ 22:55 by Yarelis Plata NP) Social History: The patient is and lives with her son. 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 She is a lifelong nonsmoker. She does not use any alcohol marijuana or illicit drugs. Her son is the durable power collections attorney for healthcare. Code status full code Smoking status: Never smoker Second hand tobacco smoke exposure: No Alcohol intake: never Substance use: never Substance use type: does not use Gender identity (if verbalized by the patient): Female Spiritual care concerns: No Agree to blood products: Yes Meds Home Medications and Allergies Home Medications Medication Instructions Recorded Confirmed Type docusate sodium 50 mg capsule 100 mg PO DAILY 03/27/19 01/19/22 History (Stool Softener) leflunomide 20 mg tablet 20 mg PO DAILY 03/27/19 01/19/22 History methylphenidate HCl 10 mg tablet 10 mg PO TID 03/27/19 01/19/22 History (Ritalin) tramadol 50 mg tablet 50 mg PO Q6H PRN Pain 03/27/19 01/19/22 History trazodone 100 mg tablet 100 mg PO HS 03/27/19 01/19/22 History fluticasone propionate 50 2 spray intranasal DAILY #18.2 mL 12/20/20 01/19/22 Rx mcg/actuation nasal spray,suspension (Flonase Allergy Relief) lorazepam 0.5 mg tablet 0.5 mg PO DAILY PRN Anxiety 07/07/21 01/19/22 History benazepril 40 mg tablet 40 mg PO DAILY #90 tabs 08/24/21 01/19/22 Rx brimonidine 0.2 % eye drops 1 drp EACH EYE BID 11/11/21 01/19/22 History hydrochlorothiazide 12.5 mg tablet 25 mg PO DAILY 11/11/21 01/19/22 History metoprolol succinate 25 mg 25 mg PO HS 11/11/21 01/19/22 History tablet,extended release 24 hr pregabalin 75 mg capsule 75 mg PO HS 11/11/21 01/19/22 History timolol maleate 0.5 % eye drops 1 drp EACH EYE BID 11/11/21 01/19/22 History oxycodone-acetaminophen 5 mg-325 1 - 2 tablet PO Q4-6H PRN pain #30 12/14/21 01/19/22 Rx mg tablet tabs Allergies Allergy/AdvReac Type Severity Reaction Status Date / Time cefuroxime Allergy Severe Swelling Verified 01/20/22 07:42 animal dander Allergy Intermediate Itching Verified 01/20/22 07:42 cat dander Allergy Intermediate sneezing Verified 01/20/22 07:42 latex Allergy Mild Itching Verified 01/20/22 07:42 mold Allergy Mild sneezing Verified 01/20/22 07:42 erythromycin base AdvReac Mild Nausea Verified 01/20/22 07:42 Vital Signs Vital Signs - 24 hr 01/19/22 14:22 01/19/22 14:37 01/19/22 16:42 Temperature 37.1 C Pulse Rate 81 82 72 Respiratory Rate 16 15 Blood Pressure 146/63 H 157/87 H Pulse Oximetry 98 94 Oxygen Delivery Room Air 01/19/22 17:53 01/19/22 20:00
--- NOTE | 2022-01-20 14:12 | WPDNEURCNPN ---
Consult date: 01/20/22 Time Seen: 13:30 Reason for consult: change in the mental status HPI: Oneal Echeverria is a 71 year old female admitted to the hospital through the emergency room for the complaints of change in the mental status apparently around 12 30 EMS and police were dispatched to the house because the patient was acting confused ,as per the report of a neighbor police arrive originally and thought she was locked out of the car and helped her unlock the car and they called of the ambulance service but that set off the car alarm and son went out ,his mom came back in and the son stated that she was confused and her confusion progressed. EMS were contacted for 2nd time, patient brought to the emergency room, at the time of arrival in the ER she was awake alert oriented x2 she was unable to answer questions appropriately patient has had stroke in the past and last known normal was earlier this morning and also there was a history of knee replacement about 8 weeks ago patient had been taking multiple medications at home including Benadryl 50 mg at night ( mg daily Ritalin that is metal [place] date 10 mg 3 times a day tremor also 50 mg every 6 hours p.r.n. lorazepam 0.5 mg daily p.r.n. cetirizine 10 mg daily clopidogrel 75 mg daily met for Adderall 25 mg at night pregabalin 75 mg at night is allergic to multiple medication is outlined is on history of anxiety and depression with chronic back pain fibromyalgia, rheumatoid arthritis, in addition to othe multiple problems as outlined ,evaluation in the ER revealed normal vital signs except blood pressure 164/[address] scan of the head with old infarcts in the thalami normal EKG without atrial fibrillation MRI of the brain old lacunar infarct in bilateral thalami as well as the left peritrigonal and left frontal deep white matter but no evidence of bleed or hydrocephalus normal carotid Doppler study Review of Systems Review of Systems: All systems reviewed & are unremarkable except as noted in HPI and below PMFSH Past Medical History Medical History Acute low back pain Ankylosing spondylitis Anxiety and depression Chronic back pain COVID-19 (~05/2021) Essential (primary) hypertension Fibromyalgia GERD (gastroesophageal reflux disease) History of breast cancer History of malignant melanoma History of stroke Hyperactivity of bladder Mixed hyperlipidemia Obesity On alf drug therapy Rheumatoid arthritis Unspecified osteoarthritis, unspecified site Surgical History Surgical History H/O repair of right rotator cuff History of bladder surgery History of right mastectomy breast reconstructive surgeries History of total left knee replacement (11/22/21) Family History Family History Mother Cerebrovascular accident Hypertension Father Family history of chronic obstructive pulmonary disease Family history of lung cancer Hypertension Family history of emphysema Sibling Hypertension Other Depression Family history of arthritis Family history of malignant neoplasm Social History Social History (Updated 01/19/22 @ 22:55 by Yarelis Plata NP) Social History: The patient is and lives with her son. 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 She is a lifelong nonsmoker. She does not use any alcohol marijuana or illicit drugs. Her son is the durable power sales engagement manager for healthcare. Code status full code Smoking status: Never smoker Second hand tobacco smoke exposure: No Alcohol intake: never Substance use: never Substance use type: does not use Gender identity (if verbalized by the patient): Female Spiritual care concerns: No Agree to blood products: Yes Meds Home Medications and Allergies Home Medications Medication Instructions
--- NOTE | 2022-01-20 14:28 | WPDNEURCNPN ---
Consult date: 01/20/22 HPI: Oenal Echeverria is a 71 year old female [facility] Past Medical History Medical History Acute low back pain Ankylosing spondylitis Anxiety and depression Chronic back pain COVID-19 (~05/2021) Essential (primary) hypertension Fibromyalgia GERD (gastroesophageal reflux disease) History of breast cancer History of malignant melanoma History of stroke Hyperactivity of bladder Mixed hyperlipidemia Obesity On alf drug therapy Rheumatoid arthritis Unspecified osteoarthritis, unspecified site Surgical History Surgical History H/O repair of right rotator cuff History of bladder surgery History of right mastectomy breast reconstructive surgeries History of total left knee replacement (11/22/21) Family History Family History Mother Cerebrovascular accident Hypertension Father Family history of chronic obstructive pulmonary disease Family history of lung cancer Hypertension Family history of emphysema Sibling Hypertension Other Depression Family history of arthritis Family history of malignant neoplasm Social History Social History (Updated 01/19/22 @ 22:55 by Yarelis Plata NP) Social History: The patient is and lives with her son. 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 She is a lifelong nonsmoker. She does not use any alcohol marijuana or illicit drugs. Her son is the durable power estate attorney for healthcare. Code status full code Smoking status: Never smoker Second hand tobacco smoke exposure: No Alcohol intake: never Substance use: never Substance use type: does not use Gender identity (if verbalized by the patient): Female Spiritual care concerns: No Agree to blood products: Yes Meds Home Medications and Allergies Home Medications Medication Instructions Recorded Confirmed Type docusate sodium 50 mg capsule 100 mg PO DAILY 03/27/19 01/19/22 History (Stool Softener) leflunomide 20 mg tablet 20 mg PO DAILY 03/27/19 01/19/22 History methylphenidate HCl 10 mg tablet 10 mg PO TID 03/27/19 01/19/22 History (Ritalin) tramadol 50 mg tablet 50 mg PO Q6H PRN Pain 03/27/19 01/19/22 History trazodone 100 mg tablet 100 mg PO HS 03/27/19 01/19/22 History fluticasone propionate 50 2 spray intranasal DAILY #18.2 mL 12/20/20 01/19/22 Rx mcg/actuation nasal spray,suspension (Flonase Allergy Relief) lorazepam 0.5 mg tablet 0.5 mg PO DAILY PRN Anxiety 07/07/21 01/19/22 History benazepril 40 mg tablet 40 mg PO DAILY #90 tabs 08/24/21 01/19/22 Rx brimonidine 0.2 % eye drops 1 drp EACH EYE BID 11/11/21 01/19/22 History hydrochlorothiazide 12.5 mg tablet 25 mg PO DAILY 11/11/21 01/19/22 History metoprolol succinate 25 mg 25 mg PO HS 11/11/21 01/19/22 History tablet,extended release 24 hr pregabalin 75 mg capsule 75 mg PO HS 11/11/21 01/19/22 History timolol maleate 0.5 % eye drops 1 drp EACH EYE BID 11/11/21 01/19/22 History oxycodone-acetaminophen 5 mg-325 1 - 2 tablet PO Q4-6H PRN pain #30 12/14/21 01/19/22 Rx mg tablet tabs Allergies Allergy/AdvReac Type Severity Reaction Status Date / Time cefuroxime Allergy Severe Swelling Verified 01/20/22 07:42 animal dander Allergy Intermediate Itching Verified 01/20/22 07:42 cat dander Allergy Intermediate sneezing Verified 01/20/22 07:42 latex Allergy Mild Itching Verified 01/20/22 07:42 mold Allergy Mild sneezing Verified 01/20/22 07:42 erythromycin base AdvReac Mild Nausea Verified 01/20/22 07:42 Vital Signs Vital Signs - 24 hr 01/19/22 14:37 01/19/22 16:42 01/19/22 17:53 Temperature 36.7 C Pulse Rate 82 72 74 Respiratory Rate 15 14 Blood Pressure 157/87 H 164/84 H Pulse Oximetry 94 96 Oxygen Delivery 01/19/22 20:00 01/19/22 22:54 01/20/22 00:08 Temperature
--- NOTE | 2022-01-20 15:38 | STIPEVAL ---
*ST Inpatient Evaluation Start: 01/20/22 14:53 Freq: .3-5x/wk Status: Active Protocol: Document 01/20/22 15:00 LEILANI (Rec: 01/20/22 15:37 [facility] [place] [id number]) Therapy Assessment Status Assessment Status Assessment Status Evaluation Prior Level of Function Prior Cognition/Communication Prior Communication Level No Impairment Prior Cognitive Function Able to Function Independently Prior Ability to Handle Finances Independent Pain Assessment Timing of Pain Assessment Timing of Pain Assessment Pre-Treatment Self Report Self Report Pain Level 0 Pain Score Pain Score 0: Self Report Language Evaluation Auditory Comprehension Body Part Identification (% Accuracy (0- 100 100)) Object Identification (% Accuracy (0-100 60 )) Simple Yes/No Questions (% Accuracy (0- 60 100)) Moderate Yes/No Questions (% Accuracy (0 60 -100)) Auditory Comprehension One-Step 100 Directives (% Accuracy (0-100)) Auditory Comprehension of Two-Step 0 Directives (% Accuracy (0-100)) Response Latency Moderate Deficits Overall Auditory Comprehension Ability Moderate Deficits Additional Auditory Comprehension Family reports she had Lasix Comments done so vision should be good however when completing confrontation naming tasks she requested items be closer (by using gestures). Verbal Expression Single Word Imitation (% Accuracy (0-100 100 )) Phrase Imitation (% Accuracy (0-100)) 100 Sentence Imitation (% Accuracy (0-100)) 50 Automatic Cued Speech (% Accuracy (0-100 80 )) Open Ended Cued Speech (% Accuracy (0- 25 100)) WH Questions (% Accuracy (0-100)) 0 Confrontational Naming (% Accuracy (0- 71 100)) Stating Object Function (% Accuracy (0- 100 100)) Sentence Formation Given a Stimulus Word 0 (% Accuracy (0-100)) Sentence Formation in Spontaneous Moderate Deficits Conversation Connected Speech Mild Deficits Response Latency Moderate Deficits Overall Verbal Expression Ability Severe Deficits Comments Related to Verbal Expression No oral motor weakness noted and when patient does use a sentence in conversation she is easily understood. ST Clinical Summary Clinical Summary ST Clinical Summary Moderate deficits noted with receptive and expressive language skills. Pt is
--- NOTE | 2022-01-20 16:55 | PM.IMPN ---
Progress Note: A&P Assessment and Plan (1) Acute alteration in mental status: Code(s): R41.82 - Altered mental status, unspecified Status: Acute Assessment and Plan: Unsure of etiology, appreciate Neurology consultation, CT head and brain MRI both negative for acute issues, they do show, however old thalamic infarcts, suspect there is an element of polypharmacy at this time, will hold all sedating medications for now (2) Mixed hyperlipidemia: Code(s): E78.2 - Mixed hyperlipidemia Status: Acute (3) Essential (primary) hypertension: Code(s): I10 - Essential (primary) hypertension Status: Acute Assessment and Plan: Stable on home medications (4) GERD (gastroesophageal reflux disease): Code(s): K21.9 - Gastro-esophageal reflux disease without esophagitis Status: Acute Assessment and Plan: Continue H2 lata (5) Fibromyalgia: Code(s): M79.7 - Fibromyalgia Status: Acute Assessment and Plan: stable Plan DVT prophylaxis with SCDs GI prophylaxis not indicated Code status full code Subjective Date/time seen: 01/20/22 16:55 Interval history: Patient is still confused and somewhat agitated with questioning. She does not know why she is here. No overnight events noted. No chest pain or shortness of breath. No nausea, vomiting or diarrhea. No fevers or chills. Review of Systems Review of Systems: 12 point review of systems was assessed and was negative except as noted in the HPI Exam Narrative: General: No acute distress, alert and oriented per baseline HEENT: Atraumatic, normocephalic, mucous membranes moist CV: Regular rate and rhythm, S1, S2 Lungs: Clear to auscultation bilaterally, no rales or crackles noted, no wheezes, good air entry Abdomen: Soft, nontender, nondistended Extremities: Normal to inspection Skin: No rashes noted, no lesions or wounds seen Psych: Anxious affect, confused, irritable Objective Data Vital Signs Vital Signs: Vital Signs - 24 hr 01/19/22 17:53 01/19/22 20:00 01/19/22 22:54 Temperature 98.0 F 96.7 F L Pulse Rate 74 69 69 Respiratory Rate 14 14 14 Blood Pressure 164/84 H 119/88 Pulse Oximetry 96 97 97 Oxygen Delivery Room Air 01/20/22 00:08 01/20/22 00:00 01/20/22 00:00 Temperature 97.6 F Pulse Rate 64 85 66 Respiratory Rate 16 Blood Pressure 153/112 H Pulse Oximetry 95 Oxygen Delivery 01/20/22 04:00 01/20/22 04:00 01/20/22 08:00 Temperature 97.7 F Pulse Rate 66 72 65 Respiratory Rate 15 Blood Pressure 151/66 H Pulse Oximetry 99 Oxygen Delivery 01/20/22 09:08 01/20/22 09:11 01/20/22 08:00 Temperature 97.6 F Pulse Rate 60 Respiratory Rate 20 Blood Pressure 119/83 Pulse Oximetry 95 99 Oxygen Delivery Room Air Room Air 01/20/22 09:35 01/20/22 12:00 01/20/22 12:00 Temperature 97.5 F L Pulse Rate 84 97 Respiratory Rate 20 Blood Pressure 110/68 Pulse Oximetry 99 Oxygen Delivery Room Air 01/20/22 14:00 Temperature 98.4 F Pulse Rate 77 Respiratory Rate 20 Blood Pressure 162/73 H Pulse Oximetry 98 Oxygen Delivery Intake/Output Intake/Output: Intake & Output 01/17/22 01/18/22 01/19/22 01/20/22 23:59 23:59 23:59 23:59 Intake Total 340 Output Total 400 Balance -60 Meds/Results Medications: Active Medications Generic Name Dose Route Start Last Admin Trade Name Shena PRN Reason Stop Dose Admin Acetaminophen 650 mg 01/19/22 17:40 01/20/22 00:14 Acetaminophen 325 Mg Tablet PO 650 mg Q4H PRN Administration Mild Pain (1-3) or Fever Aspirin 81 mg 01/20/22 09:00 01/20/22 09:52 Aspirin 81 Mg Enteric Tablet PO 81 mg QAM NUVIA Administration Brimonidine Tartrate 1 drop 01/19/22 22:55 01/20/22 09:53 Brimonidine Tartrate 0.2% Op Soln 5 Ml Btl EACH EYE 1 drop Q12HR NUVIA Administration Clopidogrel Bisulfate 75 mg 01/20/22 09:00 01/20/22 09:53
[2022-01-20] MEDS: QUEtiapine FUMARATE 12.5 MG TABLET PO (17:14)
[2022-01-20] MEDS: traZODone HCL 50 MG TABLET 100 MG PO (20:12)
[2022-01-20] MEDS: PREGABALIN (*CRX) 75 MG CAPSULE PO (20:12)
[2022-01-21] VITALS (7 sets, daily range): BP systolic 122–176; BP diastolic 63–98; PULSE 56–103; RESP 16–19; TEMP 36.2–36.9; O2SAT 98–99
[2022-01-21] MEDS: FAMOTIDINE 20 MG TABLET PO ×2 (08:12→21:16)
[2022-01-21] MEDS: ASPIRIN 81 MG ENTERIC TABLET PO (08:12)
[2022-01-21] MEDS: DOCUSATE SODIUM 100 MG CAPSULE PO (08:12)
[2022-01-21] MEDS: CLOPIDOGREL BISULFATE 75 MG TABLET PO (08:12)
[2022-01-21] MEDS: TIMOLOL MALEATE 0.5% OP SOLN 5 ML BOTTLE 1 DROP EACH EYE ×2 (08:13→21:17)
[2022-01-21] MEDS: BRIMONIDINE TARTRATE 0.2% OP SOLN 5 ML BTL 1 DROP EACH EYE ×2 (08:13→21:17)
[2022-01-21] MEDS: FLUTICASONE PROPIONATE 0.05% NA SPR 16 GM BTL (*BKC) 2 SPRAY NASAL (08:13)
[2022-01-21] MEDS: lisinopriL 20 MG TABLET 40 MG PO (08:13)
--- NOTE | 2022-01-21 09:41 | PCOTNOTE ---
Attempted to see pt for occupational therapy tx, however, pt continually refuses to participate in therapy tx. Pt repeatedly states I'm going home...I'm trying to call my psychologist. Pt is very confused and observed to have very poor safety awareness. Pt declined to get cleaned up for day, etc. Pt observed to be very agitated and when asked to participate in some EOB activities, pt continues to decline. Pt attempted to throw hospital phone at therapist when therapist attempted to place it back in the placeholder. Pt is aware of her name, however is unable to verify location/date. Will continue per poc duration/frequency tomorrow.
--- NOTE | 2022-01-21 10:05 | PC.NURSE ---
Patient noted to be restless and agitated. Patient attempting to get out of bed and stand and wants to call 911 to call son to come picker . Patient noted with visual hallucinations noting there are shiny black objects at the end of her bed. Hospitalist aware. Floor RN aware. Patient's daughter notified and will be on her way to the hospital.
[2022-01-21] MEDS: QUEtiapine FUMARATE 12.5 MG TABLET PO ×2 (10:19→21:16)
--- NOTE | 2022-01-21 10:23 | PM.IMPN ---
Progress Note: A&P Assessment and Plan (1) Acute alteration in mental status: Code(s): R41.82 - Altered mental status, unspecified Status: Acute Assessment and Plan: Unsure of etiology, appreciate Neurology consultation, CT head and brain MRI both negative for acute issues, they do show, however old thalamic infarcts, suspect there is an element of polypharmacy at this time, will hold all sedating medications for now Differential diagnosis also includes vascular dementia which does present in a stepwise fashion (2) Mixed hyperlipidemia: Code(s): E78.2 - Mixed hyperlipidemia Status: Acute (3) Essential (primary) hypertension: Code(s): I10 - Essential (primary) hypertension Status: Acute Assessment and Plan: Stable on home medications (4) GERD (gastroesophageal reflux disease): Code(s): K21.9 - Gastro-esophageal reflux disease without esophagitis Status: Acute Assessment and Plan: Continue H2 lata (5) Fibromyalgia: Code(s): M79.7 - Fibromyalgia Status: Acute Assessment and Plan: stable Plan 01/21: Discussed differential diagnosis, prognosis and concerns extensively with daughter at bedside DVT prophylaxis with SCDs GI prophylaxis not indicated Code status full code Subjective Date/time seen: 01/21/22 10:23 Interval history: Patient did well overnight, however, this morning, she seems much more agitated, suspicious and is alert and oriented times person only. No overnight events noted. No chest pain or shortness of breath. No nausea, vomiting or diarrhea. No fevers or chills. Review of Systems Review of Systems: 12 point review of systems was assessed and was negative except as noted in the HPI Exam Narrative: General: No acute distress, alert and oriented to self only HEENT: Atraumatic, normocephalic, mucous membranes moist CV: Regular rate and rhythm, S1, S2 Lungs: Clear to auscultation bilaterally, no rales or crackles noted, no wheezes, good air entry Abdomen: Soft, nontender, nondistended Extremities: Normal to inspection Skin: No rashes noted, no lesions or wounds seen Psych: Anxious affect, confused, irritable Neuro: Cranial nerves 2-12 grossly intact, strength +5/5 upper and lower extremities bilaterally Objective Data Vital Signs Vital Signs: Vital Signs - 24 hr 01/20/22 12:00 01/20/22 12:00 01/20/22 14:00 Temperature 97.5 F L 98.4 F Pulse Rate 84 97 77 Respiratory Rate 20 20 Blood Pressure 110/68 162/73 H Pulse Oximetry 99 98 Oxygen Delivery 01/20/22 16:00 01/20/22 20:12 01/20/22 22:00 Temperature 97.5 F L Pulse Rate 82 82 73 Respiratory Rate 20 Blood Pressure 173/79 H Pulse Oximetry 99 Oxygen Delivery 01/20/22 20:00 01/20/22 20:00 01/21/22 00:00 Temperature Pulse Rate 94 60 Respiratory Rate Blood Pressure Pulse Oximetry Oxygen Delivery Room Air 01/21/22 04:00 01/21/22 06:00 Temperature 98.4 F Pulse Rate 56 L 69 Respiratory Rate 16 Blood Pressure 122/63 Pulse Oximetry 99 Oxygen Delivery Intake/Output Intake/Output: Intake & Output 01/18/22 01/19/22 01/20/22 01/21/22 23:59 23:59 23:59 23:59 Intake Total 700 100 Output Total 750 150 Balance -50 -50 Meds/Results Medications: Active Medications Generic Name Dose Route Start Last Admin Trade Name Freq PRN Reason Stop Dose Admin Acetaminophen 650 mg 01/19/22 17:40 01/20/22 00:14 Acetaminophen 325 Mg Tablet PO 650 mg Q4H PRN Administration Mild Pain (1-3) or Fever Aspirin 81 mg 01/20/22 09:00 01/21/22 08:12 Aspirin 81 Mg Enteric Tablet PO 81 mg QAM NUVIA Administration Brimonidine Tartrate 1 drop 01/19/22 22:55 01/21/22 08:13 Brimonidine Tartrate 0.2% Op Soln 5 Ml Btl EACH EYE 1 drop Q12HR NUVIA Administration Clopidogrel Bisulfate 75 mg 01/20/22 09:00 01/21/22 08:12 Clopidogrel Bisulfate 75 Mg Tablet PO
--- NOTE | 2022-01-21 10:34 | PCPTNOTE ---
Attempted to see pt for therapy this AM and walked her through some exercises. She would perform one rep and then refuse to do more. Will continue per PT plan of care.
--- NOTE | 2022-01-21 14:14 | PCPTNOTE ---
The patient treatment was not able to be completed on 01/21 due to elevated blood pressure. Will continue per PT plan of care.
--- NOTE | 2022-01-21 14:16 | PCOTNOTE ---
Attempted to see pt for 2nd time for occupational therapy. Due to elevated bp at 176/98 with manual bp cuff, pt is not appropriate for therapy at this time. Will continue per poc duration/frequency tomorrow.
--- NOTE | 2022-01-21 15:05 | WPDNEUROPN ---
Subjective Date/time seen: 01/21/22 15:05 Interval history: 71 years old lady admitted for the complaints of increasing confusion evaluation documented routine CBC normal BMP is normal except the potassium of only 2.9 UA abnormal toxicological screen positive for the opiates MRI of the brain documented old lacunar infarct in the bilateral thalami as well as the left peritrigonal and left frontal deep white matter with extensive periventricular predominant white matter hyperintensities consistent with the chronic small-vessel ischemic changes Doppler study of the carotid is with the less than 50% stenosis. Discussed with the family with these diagnosis of 1. Subcortical strokes on the basis of the small-vessel disease 2 no major vessel involvement 3 ongoing dementia and other problems as outlined in the admission history and physical examination 4 will benefit from the continuation of her medications aspirin and Plavix for 4 to 6 weeks and aspirin ongoing therapy and also with follow up with the psychiatrist has had of care from the underlying dementia Objective Data Vital Signs Vital Signs: Vital Signs - 24 hr 01/20/22 16:00 01/20/22 20:12 01/20/22 22:00 Temperature 36.4 C L Pulse Rate 82 82 73 Respiratory Rate 20 Blood Pressure 173/79 H Pulse Oximetry 99 Oxygen Delivery 01/20/22 20:00 01/20/22 20:00 01/21/22 00:00 Temperature Pulse Rate 94 60 Respiratory Rate Blood Pressure Pulse Oximetry Oxygen Delivery Room Air 01/21/22 04:00 01/21/22 06:00 Temperature 36.9 C Pulse Rate 56 L 69 Respiratory Rate 16 Blood Pressure 122/63 Pulse Oximetry 99 Oxygen Delivery Intake/Output Intake/Output: Intake & Output 01/18/22 01/19/22 01/20/22 01/21/22 23:59 23:59 23:59 23:59 Intake Total 700 220 Output Total 750 150 Balance -50 70 Meds/Results Medications: Active Medications Generic Name Dose Route Start Last Admin Trade Name Freq PRN Reason Stop Dose Admin Acetaminophen 650 mg 01/19/22 17:40 01/20/22 00:14 Acetaminophen 325 Mg Tablet PO 650 mg Q4H PRN Administration Mild Pain (1-3) or Fever Aspirin 81 mg 01/20/22 09:00 01/21/22 08:12 Aspirin 81 Mg Enteric Tablet PO 81 mg QAM NUVIA Administration Brimonidine Tartrate 1 drop 01/19/22 22:55 01/21/22 08:13 Brimonidine Tartrate 0.2% Op Soln 5 Ml Btl EACH EYE 1 drop Q12HR NUVIA Administration Clopidogrel Bisulfate 75 mg 01/20/22 09:00 01/21/22 08:12 Clopidogrel Bisulfate 75 Mg Tablet PO 75 mg QAM NUVIA Administration Docusate Sodium 100 mg 01/20/22 09:00 01/21/22 08:12 Docusate Sodium 100 Mg Capsule PO 100 mg DAILY NUVIA Administration Famotidine 20 mg 01/20/22 09:00 01/21/22 08:12 Famotidine 20 Mg Tablet PO 20 mg Q12HR NUVIA Administration Fluticasone Propionate 2 spray 01/20/22 09:00 01/21/22 08:13 Fluticasone Propionate 0.05% Na Spr 16 Gm Btl (*Bkc) NASAL 2 spray DAILY NUVIA Administration Leflunomide 20 mg 01/20/22 09:00 01/20/22 09:53 Leflunomide 20 Mg Tablet PO 20 mg DAILY NUVIA Administration Lisinopril 40 mg 01/20/22 09:00 01/21/22 08:13 Lisinopril 20 Mg Tablet PO 40 mg QAM NUVIA Administration Lorazepam 0.5 - 1 mg 01/19/22 22:44 01/20/22 12:30 Lorazepam (*Crx) 0.5 Mg Tablet PO 1 mg DAILY PRN Administration Anxiety Methylphenidate HCl 10 mg 01/20/22 09:00 01/20/22 16:35 Methylphenidate Hcl (*Crx) 10 Mg Tablet PO 10 mg TID NUVIA Administration Metoprolol Succinate 25 mg 01/19/22 22:50 01/20/22 20:12 Metoprolol Succinate Ext Rel 25 Mg Tabcr PO 25 mg HS NUVIA Administration Ondansetron HCl 4 mg 01/19/22 17:40 Ondansetron Inj 4 Mg/2 Ml Vial IV PUSH Q4H PRN Nausea Pregabalin 75 mg 01/19/22 22:50 01/20/22 20:12 Pregabalin (*Crx) 75 Mg Capsule PO 75 mg HS NUVIA Administration Quetiapine Fumarate 12.5 mg 01/21/22 21:00 Quetiapine Fumarate 12.5 Mg Tablet P
[2022-01-21] MEDS: METOPROLOL SUCCINATE EXT REL 25 MG TABCR PO (21:16)
[2022-01-21] MEDS: PREGABALIN (*CRX) 75 MG CAPSULE PO (21:16)
[2022-01-21] MEDS: traZODone HCL 50 MG TABLET 100 MG PO (21:16)
[2022-01-22 06:00] VITALS: BP 147/92; PULSE 54; RESP 18; TEMP 36.1; O2SAT 98
[2022-01-22] MEDS: ASPIRIN 81 MG ENTERIC TABLET PO (09:36)
[2022-01-22] MEDS: lisinopriL 20 MG TABLET 40 MG PO (09:36)
[2022-01-22] MEDS: CLOPIDOGREL BISULFATE 75 MG TABLET PO (09:36)
[2022-01-22] MEDS: FAMOTIDINE 20 MG TABLET PO ×2 (09:36→20:50)
[2022-01-22] MEDS: TIMOLOL MALEATE 0.5% OP SOLN 5 ML BOTTLE 1 DROP EACH EYE ×2 (09:36→20:51)
[2022-01-22] MEDS: BRIMONIDINE TARTRATE 0.2% OP SOLN 5 ML BTL 1 DROP EACH EYE ×2 (09:36→20:51)
[2022-01-22] MEDS: FLUTICASONE PROPIONATE 0.05% NA SPR 16 GM BTL (*BKC) 2 SPRAY NASAL (09:36)
[2022-01-22] MEDS: DOCUSATE SODIUM 100 MG CAPSULE PO (09:36)
[2022-01-22] MEDS: ACETAMINOPHEN 325 MG TABLET 650 MG PO (13:33)
[2022-01-22 13:51] VITALS: BP 157/60; PULSE 68; RESP 24; TEMP 36.5; O2SAT 100
--- NOTE | 2022-01-22 16:47 | PM.IMPN ---
Progress Note: A&P Assessment and Plan (1) Acute alteration in mental status: Code(s): R41.82 - Altered mental status, unspecified Status: Acute Assessment and Plan: suspect vascular dementia, improving dramatically on seroquel 12.5 mg QHS d/c to rehab facility tomorrow on aspirin + plavix for 4-6 weeks and f/u with psychiatry (2) Mixed hyperlipidemia: Code(s): E78.2 - Mixed hyperlipidemia Status: Acute (3) Essential (primary) hypertension: Code(s): I10 - Essential (primary) hypertension Status: Acute Assessment and Plan: Stable on home medications (4) GERD (gastroesophageal reflux disease): Code(s): K21.9 - Gastro-esophageal reflux disease without esophagitis Status: Acute Assessment and Plan: Continue H2 lata (5) Fibromyalgia: Code(s): M79.7 - Fibromyalgia Status: Acute Assessment and Plan: stable Plan 01/21: Discussed differential diagnosis, prognosis and concerns extensively with daughter at bedside 01/22: Discussed ddx with other daughter DVT prophylaxis with SCDs GI prophylaxis not indicated Code status full code Subjective Date/time seen: 01/22/22 16:47 Objective Data Vital Signs Vital Signs: Vital Signs - 24 hr 01/21/22 21:16 01/21/22 22:00 01/22/22 06:00 Temperature 97.2 F L 96.9 F L Pulse Rate 103 H 80 54 L Respiratory Rate 19 18 Blood Pressure 151/71 H 147/92 H Pulse Oximetry 98 98 Oxygen Delivery 01/22/22 09:35 01/22/22 13:51 Temperature 97.7 F Pulse Rate 68 Respiratory Rate 24 H Blood Pressure 157/60 H Pulse Oximetry 100 Oxygen Delivery Room Air Intake/Output Intake/Output: Intake & Output 01/19/22 01/20/22 01/21/22 01/22/22 23:59 23:59 23:59 23:59 Intake Total 700 720 540 Output Total 750 150 Balance -50 570 540 Meds/Results Medications: Active Medications Generic Name Dose Route Start Last Admin Trade Name Freq PRN Reason Stop Dose Admin Acetaminophen 650 mg 01/19/22 17:40 01/22/22 13:33 Acetaminophen 325 Mg Tablet PO 650 mg Q4H PRN Administration Mild Pain (1-3) or Fever Aspirin 81 mg 01/20/22 09:00 01/22/22 09:36 Aspirin 81 Mg Enteric Tablet PO 81 mg QAM NUVIA Administration Brimonidine Tartrate 1 drop 01/19/22 22:55 01/22/22 09:36 Brimonidine Tartrate 0.2% Op Soln 5 Ml Btl EACH EYE 1 drop Q12HR NUVIA Administration Clopidogrel Bisulfate 75 mg 01/20/22 09:00 01/22/22 09:36 Clopidogrel Bisulfate 75 Mg Tablet PO 75 mg QAM NUVIA Administration Docusate Sodium 100 mg 01/20/22 09:00 01/22/22 09:36 Docusate Sodium 100 Mg Capsule PO 100 mg DAILY NUVIA Administration Famotidine 20 mg 01/20/22 09:00 01/22/22 09:36 Famotidine 20 Mg Tablet PO 20 mg Q12HR NUVIA Administration Fluticasone Propionate 2 spray 01/20/22 09:00 01/22/22 09:36 Fluticasone Propionate 0.05% Na Spr 16 Gm Btl (*Bkc) NASAL 2 spray DAILY NUVIA Administration Leflunomide 20 mg 01/20/22 09:00 01/20/22 09:53 Leflunomide 20 Mg Tablet PO 20 mg DAILY NUVIA Administration Lisinopril 40 mg 01/20/22 09:00 01/22/22 09:36 Lisinopril 20 Mg Tablet PO 40 mg QAM NUVIA Administration Lorazepam 0.5 - 1 mg 01/19/22 22:44 01/20/22 12:30 Lorazepam (*Crx) 0.5 Mg Tablet PO 1 mg DAILY PRN Administration Anxiety Methylphenidate HCl 10 mg 01/20/22 09:00 01/20/22 16:35 Methylphenidate Hcl (*Crx) 10 Mg Tablet PO 10 mg TID NUVIA Administration Metoprolol Succinate 25 mg 01/19/22 22:50 01/21/22 21:16 Metoprolol Succinate Ext Rel 25 Mg Tabcr PO 25 mg HS [facility] Administration Ondansetron HCl 4 mg 01/19/22 17:40 Ondansetron Inj 4 Mg/2 Ml Vial IV PUSH Q4H PRN Nausea Pregabalin 75 mg 01/19/22 22:50 01/21/22 21:16 Pregabalin (*Crx) 75 Mg Capsule PO 75 mg HS [facility] Administration Quetiapine Fumarate 12.5 mg 01/21/22 21:00 01/21/22 21:16 Quetiapine Fumarate 12
[2022-01-22] MEDS: traZODone HCL 50 MG TABLET 100 MG PO (20:49)
[2022-01-22 20:50] VITALS: PULSE 75
[2022-01-22] MEDS: METOPROLOL SUCCINATE EXT REL 25 MG TABCR PO (20:50)
[2022-01-22] MEDS: PREGABALIN (*CRX) 75 MG CAPSULE PO (20:50)
[2022-01-22] MEDS: QUEtiapine FUMARATE 12.5 MG TABLET PO (20:50)
[2022-01-22 22:00] VITALS: BP 109/44; PULSE 70; RESP 16; TEMP 36.3; O2SAT 99
--- NOTE | 2022-01-23 01:03 | PC.NURSE ---
Pt sleeping when I initially went into the room. Pt awakened to give night time medication and do an assessment. Pt able to answer all A&O questions appropriately. Educated pt on how to use call light and remote. Will continue to monitor pt.
[2022-01-23 06:00] VITALS: BP 168/74; PULSE 72; RESP 18; TEMP 36.1; O2SAT 92
[2022-01-23 08:00] VITALS: RESP 18; O2SAT 92
[2022-01-23] MEDS: FLUTICASONE PROPIONATE 0.05% NA SPR 16 GM BTL (*BKC) 2 SPRAY NASAL (08:43)
[2022-01-23] MEDS: BRIMONIDINE TARTRATE 0.2% OP SOLN 5 ML BTL 1 DROP EACH EYE (08:43)
[2022-01-23] MEDS: lisinopriL 20 MG TABLET 40 MG PO (08:44)
[2022-01-23] MEDS: DOCUSATE SODIUM 100 MG CAPSULE PO (08:44)
[2022-01-23] MEDS: FAMOTIDINE 20 MG TABLET PO (08:44)
[2022-01-23] MEDS: TIMOLOL MALEATE 0.5% OP SOLN 5 ML BOTTLE 1 DROP EACH EYE (08:44)
[2022-01-23] MEDS: CLOPIDOGREL BISULFATE 75 MG TABLET PO (08:44)
[2022-01-23] MEDS: ACETAMINOPHEN 325 MG TABLET 650 MG PO (11:30)
--- NOTE | 2022-01-23 13:06 | PM.DS ---
DS: Admitting Diagnosis Discharge Date January 23, 2022 Admitting Diagnosis Altered mental status DS: Discharge Diagnosis Discharge Diagnosis (1) Acute alteration in mental status: Code(s): R41.82 - Altered mental status, unspecified Status: Acute Assessment and Plan: suspect vascular dementia, improving dramatically on seroquel 12.5 mg QHS d/c to rehab facility tomorrow on aspirin + plavix for 4-6 weeks and f/u with psychiatry (2) Mixed hyperlipidemia: Code(s): E78.2 - Mixed hyperlipidemia Status: Acute (3) Essential (primary) hypertension: Code(s): I10 - Essential (primary) hypertension Status: Acute Assessment and Plan: Stable on home medications (4) GERD (gastroesophageal reflux disease): Code(s): K21.9 - Gastro-esophageal reflux disease without esophagitis Status: Acute Assessment and Plan: Continue H2 lata (5) Fibromyalgia: Code(s): M79.7 - Fibromyalgia Status: Acute Assessment and Plan: stable Plan 01/21: Discussed differential diagnosis, prognosis and concerns extensively with daughter at bedside 01/22: Discussed ddx with other daughter DVT prophylaxis with SCDs GI prophylaxis not indicated Code status full code DS: Summary Hospital Course Hospital Course: 71-year-old female with past medical history significant for hypertension, GERD, anxiety and depression, CVA is presenting with altered mental status. Neurology was consulted, brain MRI was ordered and did not show any acute episodes but did show multiple prior strokes. Complete workup was negative for any other etiology to her altered mental status. Symptoms significantly improved with Seroquel administration. Vascular dementia was thought to be the diagnosis and she was discharged in good condition to an outpatient rehab facility. See above for details. Time Spent with Patient Time attestation: Total time spent providing and/or coordinating discharge services: Exam Narrative: General: No acute distress, alert and oriented per new baseline HEENT: Atraumatic, normocephalic, mucous membranes moist CV: Regular rate and rhythm, S1, S2 Lungs: Clear to auscultation bilaterally, no rales or crackles noted, no wheezes, good air entry Abdomen: Soft, nontender, nondistended Extremities: Normal to inspection Skin: No rashes noted, no lesions or wounds seen Psych: Euthymic, normal affect Discharge Plan Discharge Attending physician on discharge: Ganesh,Amanda L. Consulting providers: Chalo Holt Discharging Clinician: Amanda Andersen Anticipated Discharge Date/Time: 01/22/22 13:21 Patient Disposition: Inpatient Rehab Facility Activity: as tolerated Diet: as tolerated Patient Instructions: Pain Management (DC) Stand Alone Forms: General Discharge Information Discharge Medications: New quetiapine [Seroquel] 25 mg tablet 12.5 mg PO HS 30 Days Qty: 15 0RF Continued leflunomide 20 mg tablet 20 mg PO DAILY methylphenidate HCl [Ritalin] 10 mg tablet 10 mg PO TID Stool Softener 50 mg capsule 100 mg PO DAILY tramadol 50 mg tablet 50 mg PO Q6H PRN (Reason: Pain) trazodone 100 mg tablet 100 mg PO HS lorazepam 0.5 mg tablet 0.5 mg PO DAILY PRN (Reason: Anxiety) Rx Instructions: takes 0.5 to 1mg as needed. oxycodone-acetaminophen 5-325 mg tablet 1 - 2 tablet PO Q4-6H MDD 6 PRN (Reason: pain) Qty: 30 0RF pregabalin 75 mg capsule 75 mg PO HS metoprolol succinate 25 mg tablet extended release 24 hr 25 mg PO HS hydrochlorothiazide 12.5 mg tablet 25 mg PO DAILY brimonidine 0.2 % drops 1 drp EACH EYE BID timolol maleate 0.5 % drops 1 drp EACH EYE BID clopidogrel 75 mg tablet 75 mg PO DAILY aspirin 81 mg Tablet,Delayed Release (Dr/Ec) 81 mg PO DAILY fluticasone propionate [Flonase Allergy Relief] 50 mcg/actuation spray,yaakov
[2022-01-23 14:00] VITALS: BP 145/70; PULSE 63; RESP 18; TEMP 36.4; O2SAT 100
[2022-01-23 14:12] LABS: Anion Gap 8 mmol/L (8-16); Blood Urea Nitrogen 12 mg/dL (7-17); Carbon Dioxide 28 mmol/L (22-30); Chloride 106 mmol/L (98-107); Estimated CRCL calculation 82 ml/min; Estimated Glomerular Filt Rate > 60; Glucose 107 mg/dL (65-110); Sodium 142 mmol/L (137-145)
== END 2022-01-23 16:00 | DRG 884 ==
LOC: ANHED 14:32 → ANH3MEDSUR 19:29
PROVIDERS: Nurse Practitioner; Admitting Provider Family Medicine; Emergency Provider Emergency Medicine; PCP Emergency Medicine; Visit Provider Student in an Organized Health Care Education/Training Program
DX: F01.50 Vascular dementia, unspecified severity, without behavioral disturbance, psychotic disturbance, mood disturbance, and anxiety (principal); E78.2 Mixed hyperlipidemia; I10 Essential (primary) hypertension; K21.9 Gastro-esophageal reflux disease without esophagitis; M79.7 Fibromyalgia; M06.9 Rheumatoid arthritis, unspecified; M45.9 Ankylosing spondylitis of unspecified sites in spine; Z96.652 Presence of left artificial knee joint; F41.9 Anxiety disorder, unspecified; F32.A Depression, unspecified; M54.9 Dorsalgia, unspecified; G89.29 Other chronic pain; N32.81 Overactive bladder; Z79.899 Other long term (current) drug therapy; Z85.3 Personal history of malignant neoplasm of breast; Z85.820 Personal history of malignant melanoma of skin; Z86.16 Personal history of COVID-19; Z86.73 Personal history of transient ischemic attack (TIA), and cerebral infarction without residual deficits
CPT/HCPCS: 36415; 51701; 70450; 70553; 80048; 80053; 80307; 81001; 82140; 83605; 83735; 84443; 85025; 85610; 85730; 86140; 87086; 92507; 92523; 93005; 93880; 96374; 97116; 97162; 97166; 97530; 97535; 99285; A9270; A9577; G0378; J2405

== ENCOUNTER 2022-01-27 12:21 | Emergency (ER) | payer OTHER, SELFPAY ==
--- NOTE | ~2022-01-27 | US_ITS ---
EXAMINATION: US pelvic complete DATE: 01/27/2022 14:50 INDICATION: Vaginal bleeding. Patient is postmenopausal. Comparison:Ultrasound dated 07/04/2014 TECHNIQUE: Multiple transabdominal and endovaginal sonographic images of the pelvis performed. FINDINGS: The uterus measures 7.7 x 4.2 x 5.3 cm. There is a uterine fibroid measuring 2.9 x 2.3 x 2. 2 cm. There are calcifications in the lower aspect of the uterus. The endometrial complex measures 6 mm. The ovaries are not visualized. There is no free fluid in the pelvis. There are no abnormal masses seen on either side. IMPRESSION: 1. Thickened endomtrial complex. The differential diagnosis includes endometrial hyperplasia, polyp a nd carcinoma. Biopsy is recommended. 2: Uterine fibroid at the fundus measuring up to 2.9 cm. Reviewed, dictated and finalized at location A. IMPRESSION: 1. Thickened endomtrial complex. The differential diagnosis includes endometria l hyperplasia, polyp and carcinoma. Biopsy is recommended. 2: Uterine fibroid at the fundus measuring up to 2.9 cm.
[2022-01-27 12:42] VITALS: BP 136/88; PULSE 75; RESP 18; TEMP 36.4; O2SAT 99
[2022-01-27 13:44] LABS: Add Urine Microscopic? YES; Appearance Urine Clear (Clear); Basophils Absolute Auto 0.1 K/mm3 (0.0-0.1); Basophils Percent Auto 0.7 % (0.2-1.2); Bilirubin Urine Negative (Negative); Blood Urine 2+ (Negative); Color Urine Yellow (Yellow); Eosinophils Absolute Auto 0.4 K/mm3 (0-0.3); Eosinophils Percent Auto 3.9 % (0-4.4); Glucose Urine UA Negative (Negative); Hematocrit 46.3 % (37.0-47.0); Hemoglobin 15.2 g/dL (12.0-15.0); Immature Granulocyte Absolute 0.08 K/mm3 (0.00-0.031); Immature Granulocyte Percent A 0.7 % (0-0.5); Ketones Urine Negative (Negative); Leukocyte Esterase Ur 1+ LEU/UL (Negative); Lymphocytes Absolute Auto 1.59 K/mm3 (0.9-3.2); Lymphocytes Percent Auto 14.8 % (18.3-44.2); Mean Corpuscular HGB Conc 32.8 g/dl (32-36); Mean Corpuscular Hemoglobin 31.6 pg (26-34); Mean Corpuscular Volume 96.3 fl (80-100); Mean Platelet Volume 10.1 fl (7.4-10.4); Monocytes Absolute Auto 1.1 K/mm3 (0.1-0.6); Monocytes Percent Auto 10.4 % (2.6-8.5); Neutrophils Absolute Auto 7.5 K/mm3 (1.3-6.7); Neutrophils Percent Auto 69.5 % (45.5-73.1); Nitrate Urine Negative (Negative); Platelet Count Result 269 k/mm3 (150-375); Protein Urine Trace mg/dL (Negative); Red Blood Count 4.81 M/mm3 (4.2-5.4); Red Cell Distribution Width 13.5 % (11.5-14.5); Urobilinogen Urine 0.2 mg/dL (<2.0); White Blood Count 10.8 K/mm3 (4.5-10.0)
[2022-01-27 13:50] LABS: Bacteria Urine Trace /hpf; Mucus Urine Rare /lpf; RBC Urine >75 /hpf (0-2); Squamous Epithelial Cell Urine Occasional /hpf (Few); WBC Urine 31-50 /hpf
[2022-01-27 13:56] LABS: Alanine Aminotransferase 32 U/L (6-35); Alkaline Phosphatase 168 U/L (38-126); Anion Gap 11 mmol/L (8-16); Aspartate Amino Transferase 33 U/L (14-36); Bilirubin,Total 0.3 mg/dL (0.2-1.3); Blood Urea Nitrogen 20 mg/dL (7-17); Calcium 9.7 mg/dL (8.4-10.2); Carbon Dioxide 25 mmol/L (22-30); Chloride 100 mmol/L (98-107); Estimated CRCL calculation 67 ml/min; Estimated Glomerular Filt Rate > 60; Glucose 96 mg/dL (65-110); Potassium 3.3 mmol/L (3.4-5.0); Sodium 136 mmol/L (137-145)
[2022-01-27 14:06] VITALS: BP 142/68; PULSE 69; RESP 16; TEMP 36.7; O2SAT 98
[2022-01-27 14:07] VITALS: BP 142/68; PULSE 71; RESP 15
--- NOTE | 2022-01-27 14:18 | ED.FEMALEGU ---
HPI - Female Genitourinary General Chief complaint: Urogenital-Female Stated complaint: ? vaginal bleeding Time Seen by Provider: 01/27/22 14:02 History of Present Illness HPI Narrative: Patient is a 71 year old female with a history of suspected vascular dementia, on asa/plavix, here from her rehab facility for evaluation of hematuria vs. vaginal bleeding. Patient was noted to have blood in her depends and was sent due to the consistency of the blood as there was concern for vaginal source. Patient does not provide much reliable history given her baseline mental status. She does state that she has had suprapubic discomfort today. She denies any back pain, fevers, chills, nausea or vomiting. She is unsure where the bleeding is coming from. Related Data Home Medications Medication Instructions Recorded Confirmed docusate sodium 50 mg capsule 100 mg PO DAILY 03/27/19 01/19/22 (Stool Softener) leflunomide 20 mg tablet 20 mg PO DAILY 03/27/19 01/19/22 methylphenidate HCl 10 mg tablet 10 mg PO TID 03/27/19 01/19/22 (Ritalin) tramadol 50 mg tablet 50 mg PO Q6H PRN Pain 03/27/19 01/19/22 trazodone 100 mg tablet 100 mg PO HS 03/27/19 01/19/22 lorazepam 0.5 mg tablet 0.5 mg PO DAILY PRN Anxiety 07/07/21 01/19/22 brimonidine 0.2 % eye drops 1 drp EACH EYE BID 11/11/21 01/19/22 hydrochlorothiazide 12.5 mg tablet 25 mg PO DAILY 11/11/21 01/19/22 metoprolol succinate 25 mg 25 mg PO HS 11/11/21 01/19/22 tablet,extended release 24 hr pregabalin 75 mg capsule 75 mg PO HS 11/11/21 01/19/22 timolol maleate 0.5 % eye drops 1 drp EACH EYE BID 11/11/21 01/19/22 aspirin 81 mg tablet,delayed 81 mg PO DAILY 01/21/22 01/21/22 release clopidogrel 75 mg tablet 75 mg PO DAILY 01/21/22 01/21/22 Allergies Allergy/AdvReac Type Severity Reaction Status Date / Time cefuroxime Allergy Severe Swelling Verified 01/27/22 14:04 animal dander Allergy Intermediate Itching Verified 01/27/22 14:04 cat dander Allergy Intermediate sneezing Verified 01/27/22 14:04 latex Allergy Mild Itching Verified 01/27/22 14:04 mold Allergy Mild sneezing Verified 01/27/22 14:04 erythromycin base AdvReac Mild Nausea Verified 01/27/22 14:04 Review of Systems Review of Systems: Gen: Denies fevers or chills Eyes: Denies eye pain or visual change ENT: Denies congestion Respiratory: Denies shortness of breath or cough CV: Denies chest pain or palpitations GI: reports abdominal discomfort. Denies nausea, emesis or diarrhea : denies burning, urgency, frequency or hematuria Musculoskeletal: Denies back pain or muscle pain Neuro: Denies numbness, tingling, weakness or focal weakness Skin: Denies rash Except as documented, all other systems reviewed and negative [facility] Past Medical History Medical History Acute low back pain Ankylosing spondylitis Anxiety and depression Chronic back pain COVID-19 (~05/2021) Essential (primary) hypertension Fibromyalgia GERD (gastroesophageal reflux disease) History of breast cancer History of malignant melanoma History of stroke Hyperactivity of bladder Mixed hyperlipidemia Obesity 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 Rheumatoid arthritis Unspecified osteoarthritis, unspecified site Surgical History Surgical History H/O repair of right rotator cuff History of bladder surgery History of right mastectomy breast reconstructive surgeries History of total left knee replacement (11/22/21) Family History Family History Mother Cerebrovascular accident Hypertension Father Family history of chronic obstructive pulmonary disease Family history of lung cancer Hypertension Family history of emphysema Sibling Hypertension Other Depression Family history of arthritis Family history of malignant neoplasm Social History Social History (
[2022-01-27 14:25] VITALS: BP 128/53; PULSE 76; PULSE 78; RESP 20; RESP 21; O2SAT 98
[2022-01-27 15:34] LABS: Partial Thromboplastin Time 28.4 SECONDS (22.3-36.8); Prothrombin Time 12.4 Seconds (11.1-14.7)
--- NOTE | 2022-01-27 17:45 | PC.NURSE ---
Pt became agitated, refusing vs, refusing to get on the cot and getting strapped down. Pt stated that I wish I hope I never see you again. Pt paranoid thinking that RN are lying to her. Pt finally and reluctantly got on the EMS cot.
== END 2022-01-27 17:45 ==
PROVIDERS: Physician Assistant; Emergency Provider Emergency Medicine; PCP Emergency Medicine
DX: N39.0 Urinary tract infection, site not specified (principal); R93.89 Abnormal findings on diagnostic imaging of other specified body structures; I10 Essential (primary) hypertension; E78.2 Mixed hyperlipidemia; K21.9 Gastro-esophageal reflux disease without esophagitis; N32.81 Overactive bladder; M79.7 Fibromyalgia; M06.9 Rheumatoid arthritis, unspecified; M19.90 Unspecified osteoarthritis, unspecified site; E66.9 Obesity, unspecified; Z68.32 Body mass index [BMI] 32.0-32.9, adult; F41.9 Anxiety disorder, unspecified; F32.A Depression, unspecified; Z96.659 Presence of unspecified artificial knee joint; Z90.11 Acquired absence of right breast and nipple; Z86.16 Personal history of COVID-19; Z85.3 Personal history of malignant neoplasm of breast; Z85.820 Personal history of malignant melanoma of skin; Z86.73 Personal history of transient ischemic attack (TIA), and cerebral infarction without residual deficits; Z79.82 Long term (current) use of aspirin; Z79.02 Long term (current) use of antithrombotics/antiplatelets; D25.9 Leiomyoma of uterus, unspecified
CPT/HCPCS: 36415; 76856; 80053; 81001; 85025; 85610; 85730; 87086; 87088; 99284

== ENCOUNTER 2022-02-18 13:14 | Emergency (ER) | payer MEDICARE, OTHER, SELFPAY ==
--- NOTE | 2022-02-18 13:21 | ED.EYEPROB ---
HPI - Eye Problem General Chief complaint: Eye Problems Stated complaint: eye irritation Time Seen by Provider: 02/18/22 13:21 Source: patient and RN notes reviewed History of Present Illness HPI Narrative: Patient is a 8-year-old female who presents the urgent care with complaints of bilateral eye irritation for the last week. Patient states she has been taking Claritin, Benadryl and using urid-enk-gijezxd eyedrops without much relief. Denies of any pain or vision changes. Denies any injury to the eye. No other acute complaints. No acute distress noted. Patient aware of the plan of care. Some parts of this dictation were generated by voice recognition software and may contain typographical and/or grammatical inaccuracies. Related Data Home Medications Medication Instructions Recorded Confirmed leflunomide 20 mg tablet 20 mg PO DAILY 03/27/19 02/07/22 brimonidine 0.2 %-timolol 0.5 % drp 02/18/22 eye drops (Combigan) Allergies Allergy/AdvReac Type Severity Reaction Status Date / Time cefuroxime Allergy Severe Swelling Verified 02/07/22 11:21 animal dander Allergy Intermediate Itching Verified 02/07/22 11:21 cat dander Allergy Intermediate sneezing Verified 02/07/22 11:21 latex Allergy Mild Itching Verified 02/07/22 11:21 mold Allergy Mild sneezing Verified 02/07/22 11:21 erythromycin base AdvReac Mild Nausea Verified 02/07/22 11:21 Review of Systems Review of Systems: CONSTITUTIONAL: Denies fever, chills, or sweats. EYES: Reports of bilateral eye irritation with clear drainage ENT: Denies rhinorrhea, congestion, sore throat, or otalgia. CARDIOVASCULAR: Denies chest pain, palpitations, or edema. RESPIRATORY: Denies cough or dyspnea. GASTROINTESTINAL: Denies abdominal pain, nausea, vomiting, or diarrhea. GENITOURINARY: Denies dysuria or hematuria. SKIN: Denies rash or itching. MUSCULOSKELETAL: Denies back pain, joint pain, or myalgia. NEUROLOGIC: Denies headache, numbness, or weakness. All other systems reviewed are negative, except as documented in HPI. 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 Rheumatoid arthritis Unspecified osteoarthritis, unspecified site Surgical History Surgical History H/O repair of right rotator cuff History of bladder surgery History of right mastectomy breast reconstructive surgeries History of total left knee replacement (11/22/21) Family History Family History Mother Cerebrovascular accident Hypertension Father Family history of chronic obstructive pulmonary disease Family history of lung cancer Hypertension Family history of emphysema Sibling Hypertension Other Depression Family history of arthritis Family history of malignant neoplasm Social History Social History Social History: The patient is and lives with her son. 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 She is a lifelong nonsmoker. She does not use any alcohol marijuana or illicit drugs. Her son is the durable power state attorney for healthcare. Code status full code Smoking status: Never smoker Second hand tobacco smoke exposure: No Alcohol intake: never Substance use: never Substance use type: does not use Gender identity (if verbalized by the patient): Female Spiritual care concerns: No Agree to blood products: Yes Comments At the time of my signature, I revi
[2022-02-18 13:30] VITALS: BP 149/73; PULSE 144; RESP 16; TEMP 37.1; O2SAT 100
== END 2022-02-18 13:41 | disposition home or self-care (01) ==
PROVIDERS: Emergency Provider Nurse Practitioner Family; PCP Emergency Medicine
DX: H10.13 Acute atopic conjunctivitis, bilateral (principal); I10 Essential (primary) hypertension; M79.7 Fibromyalgia; K21.9 Gastro-esophageal reflux disease without esophagitis; E78.2 Mixed hyperlipidemia; M06.9 Rheumatoid arthritis, unspecified; M19.90 Unspecified osteoarthritis, unspecified site; Z85.3 Personal history of malignant neoplasm of breast; Z85.828 Personal history of other malignant neoplasm of skin; Z86.73 Personal history of transient ischemic attack (TIA), and cerebral infarction without residual deficits; Z90.12 Acquired absence of left breast and nipple; Z96.652 Presence of left artificial knee joint
CPT/HCPCS: 99213; G0463

== ENCOUNTER 2022-06-10 13:30 | Outpatient (CLI) | payer MEDICARE, OTHER, SELFPAY ==
--- NOTE | ~2022-06-10 | MR_ITS ---
MRI of the cervical spine Clinical History: Cervicalgia Technique: Axial T2-weighted and gradient images, and sagittal T1-weighted, T2-weighted, and STIR mayra ges were acquired. Findings: There is no fracture or subluxation of the cervical spine. Vertebral bodies maintain normal height and alignment. No focal bone marrow signal abnormality seen. At C2-C3, there is no disc bulge or herniation. No spinal canal stenosis, cord compression, or neural foraminal narrowing at this level. At C3-C4, there is small central disc osteophyte complex. No leslie canal stenosis or cord compression . Bilateral neural foramina are preserved. At C4-C5, there is small disc osteophyte complex, without leslie canal stenosis or cord compression. T here is bilateral facet joint hypertrophy, left worse than right. Bilateral neural foramina are prese rved. At C5-C6, there is disc osteophyte complex, which minimally flattens the ventral cord. There is proba ble left neural foraminal narrowing. Right neural foramen preserved. There is left facet joint hypert rophy. At C6-C7, there is central disc osteophyte complex resulting in mild ventral cord flattening/compress ion. There is probable bilateral neural foraminal narrowing at this level. No abnormal signal seen in the spinal cord. Paravertebral soft tissues are unremarkable. Impression: Disc osteophyte complex at C6-C7 which results in mild ventral cord compression, especially on the le ft side. Mild bilateral neural foraminal narrowing at this level. Disc osteophyte complex at C5-C6, which minimally flattens the ventral cord, with probable left neura l foraminal narrowing. Additional minimal degenerative changes, as above. Reviewed, dictated and finalized at location M. IAL DUTY NURSE Impression: Disc osteophyte complex at C6-C7 which results in mild ventral cord compression , especially on the left side. Mild bilateral neural foraminal narrowing at thi s level. Disc osteophyte complex at C5-C6, which minimally flattens the ventral cord, wi th probable left neural foraminal narrowing. Additional minimal degenerative changes, as above.
== END 2022-06-10 13:31 | disposition home or self-care (01) ==
PROVIDERS: PCP Emergency Medicine; Visit Provider Anesthesiology Pain Medicine
DX: M54.2 Cervicalgia (principal)
CPT/HCPCS: 72141

== ENCOUNTER → 2022-09-01 09:27 | Outpatient (CLI) | payer MEDICARE, OTHER, SELFPAY ==
--- NOTE | ~2022-09-01 | US_ITS ---
Abdominal Sonogram: Real-time sonographic imaging of the abdomen was performed. Clinical History: Abnormal levels of serum enzymes Findings: The liver appears normal with no evidence of mass lesion or bile duct dilatation. Main por larry vein demonstrates normal direction of flow. The spleen is normal in size without evidence of foca l lesion. The gallbladder is well distended, and appears normal with no evidence of gallstone or wal l thickening. The common bile duct measures 4 mm. The visualized pancreas, aorta, and IVC are unrema rkable. The right kidney measures 10.2 cm in length and the left kidney measures 9.4 cm. There is n o hydronephrosis or renal calculus. Impression: Unremarkable abdominal ultrasound. Reviewed, dictated and finalized at location M. Impression: Unremarkable abdominal ultrasound.
== END ==
PROVIDERS: PCP Emergency Medicine; Visit Provider Nurse Practitioner Family
DX: R74.8 Abnormal levels of other serum enzymes (principal)
CPT/HCPCS: 76700

== ENCOUNTER 2023-01-23 09:09 | Outpatient (CLI) | payer MEDICARE, OTHER, SELFPAY ==
[2023-01-23 16:55] LABS: Calcium 9.4 mg/dL (8.4-10.2); Cholesterol 146 mg/dL (0-200); HDL Direct 39 mg/dL; Triglycerides 175 mg/dL (<150)
[2023-01-23 17:05] LABS: LDL Cholesterol Direct 76 mg/dL
[2023-01-23 19:13] LABS: Hemoglobin A1C 5.1 % (<5.7)
== END 2023-01-23 09:10 | disposition home or self-care (01) ==
PROVIDERS: PCP Emergency Medicine; Visit Provider Emergency Medicine
DX: R74.8 Abnormal levels of other serum enzymes (principal); R73.9 Hyperglycemia, unspecified; E66.9 Obesity, unspecified; Z68.35 Body mass index [BMI] 35.0-35.9, adult; Z79.899 Other long term (current) drug therapy
CPT/HCPCS: 36415; 80061; 82310; 83036; 83970; 84443

== ENCOUNTER 2023-07-03 09:36 | Outpatient (CLI) | payer MEDICARE, OTHER, SELFPAY ==
[2023-07-03 18:45] LABS: Alanine Aminotransferase 19 U/L (6-35); Albumin Level 3.8 g/dL (3.5-5.1); Alkaline Phosphatase 122 U/L (38-126); Anion Gap 5 mmol/L (8-16); Aspartate Amino Transferase 34 U/L (14-36); Bilirubin,Total 0.4 mg/dL (0.2-1.3); Blood Urea Nitrogen 17 mg/dL (7-17); CRP 1.7 mg/dL (<1.0); Calcium 9.7 mg/dL (8.4-10.2); Carbon Dioxide 33 mmol/L (22-30); Chloride 101 mmol/L (98-107); Estimated Glomerular Filt Rate > 60; Glucose 106 mg/dL (65-110); Potassium 3.1 mmol/L (3.4-5.0); Sodium 139 mmol/L (137-145)
[2023-07-03 18:52] LABS: Basophils Absolute Auto 0.1 K/mm3 (0.0-0.1); Basophils Percent Auto 0.7 % (0.2-1.2); Eosinophils Absolute Auto 0.3 K/mm3 (0-0.3); Eosinophils Percent Auto 2.8 % (0-4.4); Hematocrit 42.3 % (37.0-47.0); Hemoglobin 13.1 g/dL (12.0-15.0); Immature Granulocyte Absolute 0.07 K/mm3 (0.00-0.031); Immature Granulocyte Percent A 0.7 % (0-0.5); Lymphocytes Absolute Auto 1.19 K/mm3 (0.9-3.2); Lymphocytes Percent Auto 12.3 % (18.3-44.2); Mean Corpuscular Hemoglobin 31.6 pg (26-34); Mean Corpuscular Volume 101.9 fl (80-100); Mean Platelet Volume 10.4 fl (7.4-10.4); Monocytes Absolute Auto 0.7 K/mm3 (0.1-0.6); Monocytes Percent Auto 6.9 % (2.6-8.5); Neutrophils Absolute Auto 7.4 K/mm3 (1.3-6.7); Neutrophils Percent Auto 76.6 % (45.5-73.1); Platelet Count Result 332 k/mm3 (150-375); Red Blood Count 4.15 M/mm3 (4.2-5.4); Red Cell Distribution Width 13.6 % (11.5-14.5); White Blood Count 9.7 K/mm3 (4.5-10.0)
[2023-07-03 19:27] LABS: Erythrocyte Sedimentation Rate 76 mm/hr (0-20)
[2023-07-03 20:08] LABS: Hepatitis B Core IgM Result Negative (Negative)
[2023-07-03 20:20] LABS: Hepatitis B Surface Anti Res Negative; Hepatitis C Virus Antibody Negative (Negative)
== END 2023-07-03 09:37 | disposition home or self-care (01) ==
PROVIDERS: Nurse Practitioner Family; PCP Emergency Medicine
DX: R74.8 Abnormal levels of other serum enzymes (principal); M45.9 Ankylosing spondylitis of unspecified sites in spine; Z79.899 Other long term (current) drug therapy
CPT/HCPCS: 36415; 80053; 85025; 85652; 86140; 86705; 86706; 86803

== ENCOUNTER 2023-10-09 09:59 | Outpatient (CLI) | payer MEDICARE, OTHER, SELFPAY ==
[2023-10-09 13:29] LABS: Basophils Percent Auto 0.5 % (0.2-1.2); Eosinophils Absolute Auto 0.2 K/mm3 (0-0.3); Eosinophils Percent Auto 2.9 % (0-4.4); Hematocrit 41.2 % (37.0-47.0); Hemoglobin 13.2 g/dL (12.0-15.0); Immature Granulocyte Absolute 0.08 K/mm3 (0.00-0.031); Immature Granulocyte Percent A 1.1 % (0-0.5); Lymphocytes Percent Auto 13.2 % (18.3-44.2); Mean Corpuscular Hemoglobin 30.6 pg (26-34); Mean Corpuscular Volume 95.4 fl (80-100); Mean Platelet Volume 10.6 fl (7.4-10.4); Monocytes Absolute Auto 0.6 K/mm3 (0.1-0.6); Monocytes Percent Auto 7.9 % (2.6-8.5); Neutrophils Absolute Auto 5.7 K/mm3 (1.3-6.7); Neutrophils Percent Auto 74.4 % (45.5-73.1); Platelet Count Result 316 k/mm3 (150-375); Red Blood Count 4.32 M/mm3 (4.2-5.4); Red Cell Distribution Width 13.6 % (11.5-14.5); White Blood Count 7.6 K/mm3 (4.5-10.0)
[2023-10-09 13:31] LABS: Alanine Aminotransferase 18 U/L (6-35); Albumin Level 3.8 g/dL (3.5-5.1); Alkaline Phosphatase 112 U/L (38-126); Anion Gap 7 mmol/L (4-12); Aspartate Amino Transferase 35 U/L (14-36); Bilirubin,Total 0.5 mg/dL (0.2-1.3); Blood Urea Nitrogen 16 mg/dL (7-17); Calcium 9.3 mg/dL (8.4-10.2); Carbon Dioxide 25 mmol/L (22-30); Chloride 108 mmol/L (98-107); Cholesterol 144 mg/dL (0-200); Estimated Glomerular Filt Rate > 60; Glucose 110 mg/dL (65-110); HDL Direct 31 mg/dL; Sodium 140 mmol/L (137-145); Triglycerides 274 mg/dL (<150)
[2023-10-09 13:42] LABS: LDL Cholesterol Direct 82 mg/dL
[2023-10-09 13:43] LABS: CRP 0.8 mg/dL (<1.0)
[2023-10-09 14:52] LABS: Erythrocyte Sedimentation Rate 60 mm/hr (0-20)
== END 2023-10-09 10:00 | disposition home or self-care (01) ==
LOC: ANHGOSHLAB 10:02
PROVIDERS: PCP Emergency Medicine; Visit Provider Emergency Medicine
DX: M45.9 Ankylosing spondylitis of unspecified sites in spine (principal); E78.2 Mixed hyperlipidemia; Z79.899 Other long term (current) drug therapy
CPT/HCPCS: 36415; 80053; 80061; 85025; 85652; 86140

== ENCOUNTER 2024-02-05 10:10 | Outpatient (CLI) | payer MEDICARE, OTHER, SELFPAY ==
[2024-02-05 14:07] LABS: Basophils Absolute Auto 0.1 K/mm3 (0.0-0.1); Eosinophils Absolute Auto 0.2 K/mm3 (0-0.3); Eosinophils Percent Auto 2.6 % (0-4.4); Hematocrit 44.8 % (37.0-47.0); Hemoglobin 13.9 g/dL (12.0-15.0); Immature Granulocyte Absolute 0.16 K/mm3 (0.00-0.031); Immature Granulocyte Percent A 1.7 % (0-0.5); Lymphocytes Percent Auto 17.2 % (18.3-44.2); Mean Corpuscular Hemoglobin 31.2 pg (26-34); Mean Corpuscular Volume 100.7 fl (80-100); Mean Platelet Volume 10.1 fl (7.4-10.4); Monocytes Absolute Auto 0.7 K/mm3 (0.1-0.6); Monocytes Percent Auto 7.3 % (2.6-8.5); Neutrophils Absolute Auto 6.5 K/mm3 (1.3-6.7); Neutrophils Percent Auto 70.2 % (45.5-73.1); Platelet Count Result 312 k/mm3 (150-375); Red Blood Count 4.45 M/mm3 (4.2-5.4); Red Cell Distribution Width 13.6 % (11.5-14.5); White Blood Count 9.3 K/mm3 (4.5-10.0)
[2024-02-05 14:23] LABS: Alanine Aminotransferase 34 U/L (6-35); Albumin Level 3.9 g/dL (3.5-5.1); Alkaline Phosphatase 145 U/L (38-126); Anion Gap 6 mmol/L (4-12); Aspartate Amino Transferase 52 U/L (14-36); Bilirubin,Total 0.5 mg/dL (0.2-1.3); Blood Urea Nitrogen 12 mg/dL (7-17); CRP 0.7 mg/dL (<1.0); Calcium 9.4 mg/dL (8.4-10.2); Carbon Dioxide 29 mmol/L (22-30); Chloride 103 mmol/L (98-107); Estimated Glomerular Filt Rate > 60; Glucose 136 mg/dL (65-110); Potassium 3.7 mmol/L (3.4-5.0); Sodium 138 mmol/L (137-145)
[2024-02-05 14:48] LABS: Erythrocyte Sedimentation Rate 43 mm/hr (0-20)
== END 2024-02-05 10:11 | disposition home or self-care (01) ==
PROVIDERS: PCP Emergency Medicine; Visit Provider Nurse Practitioner Family
DX: Z79.899 Other long term (current) drug therapy (principal)
CPT/HCPCS: 36415; 80053; 85025; 85652; 86140

== ENCOUNTER 2024-06-12 13:55 | Outpatient (CLI) | payer MEDICARE, OTHER, SELFPAY ==
--- OUTSIDE RECORDS SUMMARY | 2024-06-12 13:59 | XMS_ITS | Clinical Summary ---
Author Organization [facility] [employer] Address [address] [place] [address] Care Team Providers Care [employer] Attendant Name Role Phone Peace Young MD Primary Care Provider [phone] Source Comments [facility],non-owned Affiliates and Associated Physician Practices is amultiple site organization consisting of ambulatory clinics and hospital sitesin [place], [place], [place] and [place]. This disclosure is being madepursuant to the Care Everywhere program and may not contain all information available regarding this patient. Last updated 18.[facility] [employer] Social History Tobacco Use Types Packs/Day Years Used Date Smoking Tobacco: Never Assessed Sex and Gender Information Value Date Recorded Sex Assigned at Not on file Gender Identity Not on file Sexual Orientation Not on file Plan of Treatment Health Maintenance Due Date Last Done Comments BONE DENSITY TESTING 1950 COLOGUARD (AGES 45-75) - COL ON CA SCREENING 1950 COLON MONITORING 1951 COLONOSCOPY - COLON CA SCREENING 1950 CT COLONOGRAPHY - COLON CA SCREENING 1950 Colorectal Cancer Screening 1950 FIT - COLON CA SCREENING 1950 FLEX SIG - COLON CA SCREENING 1950 LIPID TESTING 1950 MAMMOGRAM 1950 MEDICARE AWV 12 MONTHS 1950 HEPATITIS C SCREENING 05/23/1969 DTAP/TDAP/TD VACCINES (1 - Tdap) 1970 PNEUMOCOCCAL VACCINE 50+ (1 of 1 - PCV) 2001 ZOSTER VACCINE (1 of 2) 2001 COVID-19 VACCINE ( - 2023-2 5 season) 2024 INFLUENZA VACCINE (#1) 2024 DEPRESSION SCREENING 05/07/2024 Respiratory Syncytial Virus (RSV) Vaccine Pt: or over 60 yrs (1 - 1-dose 75+ series) 2026 HEPATITIS B VACCINE Aged Out No longe r eligible based on patient's age to complete this topic HIB VACCINE Aged Out No longer eligi ble based on patient's age to complete this topic HPV VACCINE Aged Out No longer eligi ble based on patient's age to complete this topic MENINGOCOCCAL (Group B) VACCINE Aged Out No longer eligible based on patient's age to complete this topic MENINGOCOCCAL VACCINE Aged Out No carey breana eligible based on patient's age to complete this topic Care Teams [employer] Att[employer] Relationship Specialty Start Date End Date Peace Young MD [address] [place] [id number] PCP - General Family Medicine 02/17/14
--- OUTSIDE RECORDS SUMMARY | 2024-06-12 13:59 | XMS_ITS | Clinical Summary ---
Author Organization [facility] Address [address] [place] [address] Care Team Providers Care Hydrology Technician Name Role Phone Hemalatha Shanks MD Unavailable Julius Galvin MD Primary Care Provider [phone] Allergies Active Allergy Reactions Criticality Noted Date Comments Adalimumab Cat Dander Cefuroxime Cephalexin Swelling Reaction: SWELLING Cephalothin Sodium Angioedema High Reaction: facial swelling, Latex Other (See comments),Itching,Blist ers Medium Reaction: Unknown, , Reaction: Itching, Blisters, Medications lisinopril (PRINIVIL,ZESTR IL) 20 mg tablet take 1 tablet (20MG) by oral route every day 0 09/03/2012 Active omeprazole magnesium 20 mg capsule,delayed release(DR/EC) take 1 by Oral route every day 0 09/03/2012 Active HYDROcodone-jose taminophen (NORCO) 5-325 mg per tablet take 1 tablet by oral route every 6 hours as needed for pain 0 09/03/2012 Active atenolol (TENORMIN) 25 mg tablet TAKE ONE TABLET BY MOUTH EVERY DAY 30 3 05/13/2013 Active hydroCHLOROthia zide (HYDRODIURIL) 12.5 mg tablet take 1 tablet by oral route 2 times every day 0 0 02/20/2014 Active fexofenadine (JULES) 180 mg tablet take 1 tablet by oral route every day 0 0 02/20/2014 Active methylphenidate (RITALIN) 10 mg tablet take 1/2-1 tablet by oral route 1 time every day 0 0 02/20/2014 Active benazepril (LOTENSIN) 20 mg tablet take 1 tablet by oral route every day 0 0 02/20/2014 Active temazepam (RESTORIL) 30 mg capsule take 1 capsule by oral route every day at bedtime as needed 0 0 02/20/2014 Active docusate sodium (STOOL SOFTENER) 100 mg capsule take 1 Capsule by oral route every day at bedtime as needed 0 0 02/20/2014 Active traZODone (DESYREL) 100 mg tablet take 1 tablet by oral route every day after meals 0 0 02/20/2014 Active diphenhydrAMINE (BENADRYL) 25 mg capsule take 2 capsule by oral route every evening as needed 0 0 02/20/2014 Active cholecalciferol (VITAMIN D3) 2,000 unit tablet take 1 by Oral route once 0 0 02/20/2014 Active traMADol (ULTRAM) 50 mg tablet take 2 Tablet by Oral route 4 times every day as needed 0 0 02/20/2014 Active pregabalin (LYRICA) 50 mg capsule take 1 capsule by oral route 2 times every bedtime 0 0 05/19/2014 Active LORazepam (ATIVAN) 0.5 mg tablet take 1 Tablet by oral route 3 times every day as needed 0 0 05/19/2014 Active clopidogrel (PLAVIX) 75 mg tablet 12/14/2016 Active fluticasone (FLONASE) 50 mcg/actuation nasal spray 01/12/2017 Active LIDOCAINE 2 % solution 11/03/2016 Active leflunomide (ARAVA) 20 mg tablet Take 1 tablet (20 mg total) by mouth daily. 90 tablet 12/26/2017 Active secukinumab 150 mg/mL pen injector Inject 150 mg under the skin every 30 (thirty) days. 1 pen 2 01/17/2018 Active Active Problems Problem Noted Date Diagnosed Date Multiple joint pain 07/09/2017 Chronic right shoulder pain 04/09/2017 Assessment & Plan (04/09/2017 12:56 PM VOCAL MUSIC TEACHER): Had rotator cuff surgery in 2008. Most painful joint today. Interested in going back to ortho. Gave name for Dr. Dykes. Knee pain 03/01/2017 Dermatitis 12/21/2016 Assessment & Plan (07/09/2017 11:51 AM VOCAL MUSIC TEACHER): Dermatitis to bilateral cheeks, sparing nasolabial folds. Less likely rosacea. Some concern for SLE-like rash. Will check ANDRÉS + profile. Will give names for derm referral Assessment & Plan (01/22/2017 4:19 PM CDT): Rash on forearms that seemed worse with sun exposure. Also new rash on lower anterior legs that pt reports she also had when on humira, but to a worse degree. She wondered if rashes are caused by cimzia and has stopped the med. Better today. She also has a scaly annular patch on posterior lower leg that resembles psoriasis. Will have her see derm for opinion. Assessment & Plan (12/21/2016 6:11 PM CDT): Rash on forearms that has been present for a week after sun exposure. Also new rash on lower anterior legs that pt reports she also had when on humira, but to a worse degree. She wonders if rashes are caused by cimzia. I also discussed that some of her other meds (bp meds) could cause photosensitivity. Will check ANDRÉS profile to r/o lupus. May need to see derm. Fibromyalgia 10/31/2016 Assessment & Plan (07/09/2017 12:14 PM VOCAL MUSIC TEACHER): Also likely source of pain. Discussed proper self-care, such as exercise and getting enough sleep to help manage symptoms. Will continue current regimen and f/u w/ pain management Assessment & Plan (04/09/2017 10:40 AM VOCAL MUSIC TEACHER): Continue current regimen and f/u with pain mgmt. Assessment & Plan (02/21/2017 9:03 PM CDT): Continue current regimen and f/u with pain mgmt. Assessment & Plan (01/22/2017 12:37 PM CDT): Continue current regimen and f/u with pain mgmt. Assessment & Plan (12/21/2016 6:11 PM CDT): Continue current regimen and f/u with pain mgmt. High risk medications (not anticoagulants) long- term use 10/30/2016 Assessment & Plan (10/29/2017 3:53 PM CDT): Quant gold negative 09/2017. Assessment & Plan (07/09/2017 11:37 AM VOCAL MUSIC TEACHER): Neg quantiferon 05/23 Assessment & Plan (04/09/2017 10:40 AM VOCAL MUSIC TEACHER): Neg quantiferon 04/21 Assessment & Plan (01/22/2017 4:18 PM CDT): Neg quantiferon 04/21 Hypertension 02/20/2014 Overview (08/11/2016): Hypertension Gastric ulcer 02/20/2014 Overview (08/11/2016): Gastric ulcer Mental disorder 02/20/2014 Overview (08/11/2016): Psychiatric illness Gastroesophageal reflux disease 02/20/2014 Overview (08/11/2016): GERD Fibrositis 02/17/2014 Overview (08/11/2016): Fibromyalgia Stress incontinence in female 04/02/2013 Unspecified urinary incontinence 01/07/2013 Malignant neoplasm of breast 01/07/2013 Overview (08/17/2017): Description: s/p right mastectomy Drug indicated 06/26/2012 Overview (08/11/2016): LONG-TERM USE MEDS NEC Disorder of breast 11/02/2011 Ankylosing spondylitis 10/18/2011 Overview (04/09/2017): Her ultrasound done on 01/04 showed: Mild synovitis with effusions, synovial thickening On leflunomide 20mg daily. Has had side effects to humira, cimzia (rashes), mtx, prednisone in the past. Started cosentyx 03/01/17 Her L wrist pain may be due to tenosynovitis. Could consider seeing hand ortho if not improving. Neg quantiferon 04/21. Assessment & Plan (10/29/2017 3:52 PM CDT): Patient disease activity is moderate. She has a high pain score. She feels like she has been doing better. Patient is to continue ARAVA and Cosentyx. Will check routine labs today. Patient seen with Dr. Shanks. Assessment & Plan (07/09/2017 12:05 PM VOCAL MUSIC TEACHER): Patient disease activity is high on leflunomide and cosentyx. Multiple tender joints; pain = 6/10 Patient is to continue current regimen for now. Given burden of disease, will give triamcinolone shot today. She has erythema to bilateral cheeks, sparing nasolabial folds. Will check routine labs today in addition to ANDRÉS + profile to check for change in serologies. Follow up in 3 mo, sooner if needed. Pt seen w/ Zaira Eli PA-C Assessment & Plan (04/09/2017 12:55 PM VOCAL MUSIC TEACHER): cdai = 31 Her ultrasound done on 01/04 showed: Mild synovitis with effusions, synovial thickening On leflunomide 20mg daily. Has had side effects to humira, cimzia, mtx, prednisone in the past. Changed to cosentyx at the end of February. Has finished the 5 loading doses, now will be monthly maintenance dose. Check labs and quantiferon today. F/u 3 months. Will give 100mg triamcinolone IM due to burden of disease. Assessment & Plan (02/22/2017 5:17 PM CDT): cdai = 30 Her ultrasound done on 01/04 showed: Mild synovitis with effusions, synovial thickening On leflunomide 20mg daily. She was reporting new sun rashes and wondered if they could be due to cimzia. Had similar rashes on humira in the past. I checked an ANDRÉS profile which was negative. She has now stopped the cimzia. Has had side effects to humira, mtx, prednisone in the past. Discussed changing to cosentyx and last visit we checked benefits. She is going to schedule a teaching visit. Had IM steroid injection from another doctor about 10 days ago. Discussed risks of long-term steroids. Her L wrist pain may be due to tenosynovitis. Could consider seeing hand ortho if not improving. Neg quantiferon 04/21. F/u 6 weeks. Assessment & Plan (01/22/2017 4:49 PM CDT): cdai = 27 Increased pain all over for the past several months. Inflammatory arthritis vs fibromyalgia pain. At the last visit we gave her 100mg IM triamcinolone which she reported helped a lot but is wearing off. She had also had injections in SI jt and hip previously. Her ultrasound done on 01/04 showed: Mild synovitis with effusions, synovial thickening On cimzia and leflunomide 20mg daily. She was reporting new sun rashes and wondered if they could be due to cimzia. Had similar rashes on humira in the past. I checked an ANDRÉS profile which was negative. She has now stopped the cimzia. Has had side effects to humira, mtx, prednisone in the past. Discussed changing to cosentyx and pt is interested. Will check benefits and financial assistance if eligible. Neg quantiferon 04/21. Reviewed risks and benefits of cosentyx. Seen with Dr. Shanks. F/u 2 months. Assessment & Plan (12/21/2016 4:33 PM CDT): High cdai (37). She c/o increased pain all over for the past 2 months. Discussed it could be a flare of her inflammatory arthritis vs fibromyalgia. On cimzia and leflunomide 20mg daily. Has had side effects to humira, mtx, prednisone in the past. Last month she had steroid injections in her SI jt and hip. Will give 100mg triamcinolone IM today. Since she has new rashes on her arms after sun exposure I would like to check her ANDRÉS profile. Discussed changing to cosentyx. Will also check u/s of R hand to look for synovitis. F/u 1 month. Assessment & Plan (10/31/2016 12:39 PM CDT): High cdai (29). She c/o increased pain all over for the past 2-3 weeks. Discussed it could be a flare of her inflammatory arthritis vs fibromyalgia. On cimzia and leflunomide 20mg daily. Has had side effects to humira, mtx, prednisone in the past. Will give 100mg triamcinolone IM today and see if she feels better. She also has appt tomorrow to see pain mgmt and may need more treatment directed at her fibromyalgia. Seen with Dr. Shanks. Check labs today. F/u 1 month. Encounters Date Type Department Care Team Description 05/09/2024 2:30 PM VOCAL MUSIC TEACHER Office Visit [facility] [address] [place] [address] [address] [place] [phone] Minerva Fleming MD History of nonmelanoma skin cancer (Primary Dx); Inflamed seborrheic keratosis; Seborrheic keratosis; Irritant dermatitis from Last 3 Months Surgical History Surgery Date Site/Laterality Comments OTHER SURGICAL HISTORY 2009 Rotator Cuff Repair RT arm OTHER SURGICAL HISTORY Breast reconstruction x19 OTHER SURGICAL HISTORY Right Shoulder Rotator Cuff Repair Medical History Medical History Date Comments Gastroesophageal reflux disease GERD Depression Depression Hyperlipidemia Hyperlipidemia Cerebrovascular accident (CVA) (HCC) Cerebrovascular accident Hypertension Hypertension Cerebrovascular accident (CVA) (HCC) Stroke Malignant neoplasm of female breast (HCC) Cancer, breast; Comments: TLT 02/20/2014 - Osteoarthritis Osteoarthritis - (Added by TW Conv) Migraine without status migr ainosus, not intractable Migraine - (Added by TW Conv ) Family History Medical History Relation Name Comments Arthritis Father Family history of arthritis - (Added by TW Conv) Cancer Father Family history of malignant neoplasm - (Added by TW Conv) Hypertension Father Family history of hypertension - (Added by TW Conv) Lung disease Father Lung abnormalit y - (Added by TW Conv) Arthritis Mother Family history of arthritis - (Added by TW Conv) Hypertension Mother Family history of hypertension - (Added by TW Conv) Cancer Other Family history of Cancer, unknown; Hypertension Other Family history of Hypertension; Relation Name Status Comments Father Mother Other Social History Tobacco Use Types Packs/Day Years Used Date Smoking Tobacco: Never Alcohol Use Standard Drinks/Week Comments Yes 0 (1 standard drink = 0.6 oz pur e alcohol) Comments Unknown Sex and Gender Information Value Date Recorded Sex Assigned at Not on file Legal Sex Female 10:21 PM VOCAL MUSIC TEACHER Gender Identity Not on file Sexual Orientation Not on file Obstetrics History Last Filed Vital Signs Vital Sign Reading Time Taken Comments Blood Pressure 132/78 10/29/2017 3:28 PM CDT Pulse 74 10/29/2017 3:28 PM CDT Temperature - - Respiratory Rate - - Oxygen Saturation 96% 09/15/2016 1:15 PM CDT Inhaled Oxygen Concentration - - Weight 83.9 kg (185 lb) 10/29/2017 3:28 PM CDT Height 154.9 cm (5' 1 ) 06/08/2017 11:26 AM VOCAL MUSIC TEACHER Body Mass Index 34.96 06/08/2017 11:26 AM VOCAL MUSIC TEACHER Plan of Treatment Health Maintenance Due Date Last Done Comments Breast Cancer Screening-Mammogram 1950 Colon Cancer Screening-Colonoscopy 1950 Depression Screening 1951 Fall Risk Assessment 1950 Osteoporosis Screening-Bone Density Scan 1951 Hepatitis B Screening 1969 Zoster Vaccine (1 of 2) 2001 Well Visit 65+ 2016 Pneumococcal vaccine 65+ (2 of 2 - PCV) 06/18/2018 06/18/2017 Influenza Vaccine (#1) 2024 01/16/2019, 2017 DTaP/Tdap/Td Vaccine (2 - Td or Tdap) 12/19/2028 12/19/2018 Hepatitis C Screening Completed 05/29/2016 , 05/29/2016, 05/29/2016, Additional history exists Procedures Procedure Name Priority Date/Time Associated Diagnosis Comments HEPATITIS PANEL, ACUTE Routine 05/29/2016 3:22 PM VOCAL MUSIC TEACHER from Last 3 Months or Most Recently Relevant to Health Maintenance Results * Hepatitis panel, acute (05/29/2016 3:22 PM VOCAL MUSIC TEACHER) Hep A IgM NON-REACT PATY NON-REACT PATY [facility] Comment: Test performed at [facility] [id number] [place] [id number] Director: GET ARROYO DO,MPH 05/29/2016 3:22 PM VOCAL MUSIC TEACHER Winston Grewal III, MD LAB MICROBIOLOGY - GENERAL ORDERABLES Final Result [facility] from Last 3 Months or Most Recently Relevant to Health Maintenance Insurance [facility] MEDIC[facility] Care Teams Hydrology Technician Relationship Specialty Start Date End Date Julius Galvin MD [address] [place] [address] PCP - General Family Medicine 12/05/22 [place] [address] [facility] [address] [place] [address] Rheumatology 01/19/17
--- OUTSIDE RECORDS SUMMARY | 2024-06-12 13:59 | XMS_ITS | Encounter Summary ---
Author Organization [employer] Address [address] [place] [address] Care Team Providers Care Chef Concierge Name Role Phone Apolinar Young MD Primary Care Provider [phone] Encounter Details Date Type Department Care Team (Late st Contact Info) Description 08/20/2006 Outpatient Historical [facility] Luanne Damon MD [address] [facility] [place] [address] Esophageal Reflux (Primary Dx) Social History Tobacco Use Types Packs/Day Years Used Date Smoking Tobacco: Never Assessed Comments Unknown Sex and Gender Information Value Date Recorded Sex Assigned at Not on file Legal Sex Female 3:22 AM EXCHANGE 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
--- OUTSIDE RECORDS SUMMARY | 2024-06-12 13:59 | XMS_ITS | Referral Summary ---
Author Organization [facility] Address [address] [place] [address] Care Team Providers Care Ceo & Co Founder Name Role Phone Peace Young MD Primary Care Provider [phone] Source Comments [facility],non-owned Affiliates and Associated Physician Practices is amultiple site organization consisting of ambulatory clinics and hospital sitesin [place], [place], [place] and [place]. This disclosure is being madepursuant to the Care Everywhere program and may not contain all information available regarding this patient. Last updated 18.[facility] [employer] Social History Tobacco Use Types Packs/Day Years Used Date Smoking Tobacco: Never Assessed Sex and Gender Information Value Date Recorded Sex Assigned at Not on file Gender Identity Not on file Sexual Orientation Not on file Plan of Treatment Not on file Care Teams Ceo & Co Founder Relationship Specialty Start Date End Date Peace Young MD [address] [place] [address] PCP - General Family Medicine 02/17/14
--- OUTSIDE RECORDS SUMMARY | 2024-06-12 13:59 | XMS_ITS | Continuity of Care Document ---
Author Organization [facility] Address [address] [place] [address] Phone Care Team Providers Care Pier Master Name Role Phone Hesham Vernon MD Unavailable Unavailable Procedures Procedure Date Office/outpatient visit,[place] 2009 X-ray exam of shoulder, complete 2009 Advance Directives Directive Yes / No Effective Date File Name No Information Encounters Encounter Description Practice Location Reason(s) For Visit Diagnoses Date Provider Providers Copied on Encounter Office/outpat ient visit,[facility], [address], [place], [id number], tel:[phone] [facility] No Information 0 Saulo Dahl. [address] [place] [place] [address] [address], [place], [place], [id number] , . tel:[phone] Referring Provider: Jonathan Kaufman, [address] [facility] [address], [place], [address]. tel:[phone] Family History Family Member Type Diagnosis Age At Onset No Information Payers Payer name Insurance type Covered green party ID Authoriza tion(s) Renee Blue Cross [employer] [place] BL [id number] Social History Type Description Quantity Date Captured Comments Sex Female Smoking Status No Information Chief Complaint And Reason For Visit No Information Reason For Referral Reason For Referral No Information History Of Present Illness Encounter Date Complaint History Of Prese nt Illness No Information Functional Status Date Functional Assessmen t No Information Instructions Date Instruction Additional Infor mation No Information Assessments Type Assessment Date No Information Patient Care Teams Name Effective Dates (start - stop) Status Members No Information
--- OUTSIDE RECORDS SUMMARY | 2024-06-12 13:59 | XMS_ITS | Patient Health Summary ---
Author Organization [facility] [employer] Address [address] [place] [address] Care Team Providers Care Riprap Worker Name Role Phone Peace Young MD Primary Care Provider [phone] Note from [facility],non-owned Affiliates and Associated Physician Practices is amultiple site organization consisting of ambulatory clinics and hospital sitesin [place], [place], [place] and [place]. This disclosure is being madepursuant to the Care Everywhere program and may not contain all information available regarding this patient. Last updated 18.[facility] [employer] Social History Tobacco Use Types Packs/Day Years Used Date Smoking Tobacco: Never Assessed Sex and Gender Information Value Date Recorded Sex Assigned at Not on file Gender Identity Not on file Sexual Orientation Not on file Procedures * XR PELVIS 1 OR 2VW(Performed 02/17/2014) Performed for Ankylosing spondylitis (HCC) * XR HAND BILAT 2VW(Performed 02/17/2014) Performed for Ankylosing spondylitis (HCC) Results * XR HANDS BILATERAL 2 VIEWS (02/17/2014 4:19 PM CDT) Anatomical Region Laterality Modality Wrist / Hand, Upper Extremity Ra diographic Imaging 02/17/2014 4:43 PM CDT Impressions 02/17/2014 4:44 PM CDT Mild bilateral hand osteoarthritis. Narrative 02/17/2014 4:44 PM CDT Examination: Bilateral hands 2 views History: Ankylosing spondylitis Findings: 2 views of both hands were performed without comparison. There is no acute fracture of either hand. There is mild osteoarthritis of both thumbs and the distal interphalangeal joints of the index and long fingers. Procedure Note Humphrey Kemp MD - 02/17/2014 Examination: Bilateral hands 2 views History: Ankylosing spondylitis Findings: 2 views of both hands were performed without comparison. There is no acute fracture of either hand. There is mild osteoarthritis of both thumbs and the distal interphalangeal joints of the index and long fingers. IMPRESSION Mild bilateral hand osteoarthritis. Winston Grewal III, MD DIAGNOSTIC IMAGING [facility] * XR PELVIS 1 OR 2 VIEW ROUTINE (02/17/2014 4:19 PM CDT) Anatomical Region Laterality Modality Pelvis Radiographic Lola ging 02/17/2014 4:45 PM CDT Impressions 02/17/2014 4:51 PM CDT Sacroiliac joint osteoarthritis and lower lumbar spine degenerative disc disease and facet osteoarthritis. Narrative 02/17/2014 4:51 PM CDT Examination: Pelvis single view History: Ankylosing spondylitis Findings: A single AP view the pelvis was performed. There is mild sclerosis adjacent to both sacroiliac joints which may represent the sequela of osteoarthritis. The sacroiliac joints appear patent without evidence of bony ankylosis. Hip joint spaces are normal bilaterally. No acute fracture is seen. There is lower lumbar spine degenerative disc disease and facet osteoarthritis. Procedure Note Humphrey Kemp MD - 02/17/2014 Examination: Pelvis single view History: Ankylosing spondylitis Findings: A single AP view the pelvis was performed. There is mild sclerosis adjacent to both sacroiliac joints which may represent the sequela of osteoarthritis. The sacroiliac joints appear patent without evidence of bony ankylosis. Hip joint spaces are normal bilaterally. No acute fracture is seen. There is lower lumbar spine degenerative disc disease and facet osteoarthritis. 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 Winston Grewal III, MD DIAGNOSTIC IMAGING [facility] Care Teams Riprap Worker Relationship Specialty Start Date End Date Peace Young MD [address] [place] [id number] PCP - General Family Medicine 02/17/14
--- OUTSIDE RECORDS SUMMARY | 2024-06-12 13:59 | XMS_ITS | Referral Summary ---
Author Organization [facility] Address [address] [place] [address] Care Team Providers Care Test And Turn Up Technician Name Role Phone Hemalatha Shanks MD Unavailable Julius Galvin MD Primary Care Provider [phone] Encounters Date Type Department Care Team Description 05/09/2024 2:30 PM CHAIR CANER Office Visit [facility] Dermatology [address] [place] [address] [address] [place] [address] Minerva Fleming MD History of nonmelanoma skin cancer (Primary Dx); Inflamed seborrheic keratosis; Seborrheic keratosis; Irritant dermatitis from Last 3 Months Allergies Active Allergy Reactions Criticality Noted Date [...] 04/09/2017 Assessment & Plan (04/09/2017 12:56 PM CHAIR CANER): Had rotator cuff surgery in 2009. Most painful joint today. Interested in going back to ortho. Gave name for Dr. Dykes. Knee pain 03/01/2017 Dermatitis 12/21/2016 Assessment & Plan (07/09/2017 11:51 AM CHAIR CANER): Dermatitis to bilateral cheeks, sparing nasolabial folds. [...] 10/31/2016 Assessment & Plan (07/09/2017 12:14 PM CHAIR CANER): Also likely source of pain. Discussed proper self-care, such as exercise and getting enough sleep to help manage symptoms. Will continue current regimen and f/u w/ pain management Assessment & Plan (04/09/2017 10:40 AM CHAIR CANER): Continue current regimen and f/u with pain [...] 09/2017. Assessment & Plan (07/09/2017 11:37 AM CHAIR CANER): Neg quantiferon 05/23 Assessment & Plan (04/09/2017 10:40 AM CHAIR CANER): Neg quantiferon 04/21 Assessment & Plan (01/22/2017 [...] Shanks. Assessment & Plan (07/09/2017 12:05 PM CHAIR CANER): Patient disease activity is high on leflunomide [...] PA-C Assessment & Plan (04/09/2017 12:55 PM CHAIR CANER): cdai = 31 Her ultrasound done on [...] Shanks. Check labs today. F/u 1 month. Social History Tobacco Use Types Packs/Day Years Used Date Smoking Tobacco: Never Alcohol Use Standard Drinks/Week Comments Yes 0 (1 standard drink = 0.6 oz pur e alcohol) Comments Unknown Sex and Gender Information Value Date Recorded Sex Assigned at Not on file Legal Sex Female 10:21 PM CHAIR CANER Gender Identity Not on file Sexual Orientation Not on file Last Filed Vital Signs Vital Sign Reading Time Taken Comments Blood Pressure 132/78 10/29/2017 3:28 PM CDT Pulse 74 10/29/2017 3:28 PM CDT Temperature - - Respiratory Rate - - Oxygen Saturation 96% 09/15/2016 1:15 PM CDT Inhaled Oxygen Concentration - - Weight 83.9 kg (185 lb) 10/29/2017 3:28 PM CDT Height 154.9 cm (5' 1 ) 06/08/2017 11:26 AM CHAIR CANER Body Mass Index 34.96 06/08/2017 11:26 AM CHAIR CANER Plan of Treatment Not on file Procedures Procedure Name Priority Date/Time Associated Diagnosis Comments HEPATITIS PANEL, ACUTE Routine 05/29/2016 3:22 PM CHAIR CANER from Last 3 Months or Most Recently Relevant to Health Maintenance Results * Hepatitis panel, acute (05/29/2016 3:22 PM CHAIR CANER) Hep A IgM NON-REACT PATY NON-REACT PATY [employer] HISTORICAL RESULTS Comment: Test performed at [facility] [address] [place] [address] Director: GET ARROYO DO,MPH 05/29/2016 3:22 PM CHAIR CANER Winston Grewal III, MD LAB MICROBIOLOGY - GENERAL ORDERABLES Final Result [facility] HISTORICAL RESULTS from Last 3 Months or Most Recently Relevant to Health Maintenance Insurance MEDICARE [facility] MEDICARE [employer] [place] [facility] [place] [address] [place] [place] [id number] Care Teams Test And Turn Up Technician Relationship Specialty Start Date End Date Julius Galvin MD [address] [place] [address] PCP - General Family Medicine 12/05/22 [place] [address] [facility] [address] [place] [address] Rheumatology 01/19/17
--- OUTSIDE RECORDS SUMMARY | 2024-06-12 13:59 | XMS_ITS | Clinical Summary ---
Author Organization [facility] Address [address] [place] [address] Phone Care Team Providers Care Garde Manager Name Role Phone Apolinar Young MD Primary Care Provider [phone] Allergies Active Allergy Reactions Criticality Noted Date Comments Cefuroxime Axetil Swelling Low 09/09/2013 Latex Itching Low 09/09/2013 Medications topiramate (TOPAMAX) 25 mg tablet Take 25 mg by mouth 2 times daily. Active HYDROcodone-jose taminophen (NORCO) 5-325 mg tablet Take 1 Tab by mouth every 4 hours as needed for Pain, Moderate. Active DICLOFENAC SODIUM (VOLTAREN TOPICAL) Apply to affected area. Active traMADol (ULTRAM) 50 mg tablet Take 100 mg by mouth every 6 hours as needed for Pain. Active temazepam (RESTORIL) 30 mg capsule Take 30 mg by mouth nightly as needed for Insomnia. Active atenolol (TENORMIN) 25 mg tablet Take 25 mg by mouth daily. Active clopidogrel (PLAVIX) 75 mg Tablet Take 75 mg by mouth. Active hydrochlorothia zide (MICROZIDE) 12.5 mg capsule Take 12.5 mg by mouth daily. Active methylphenidate (METHYLIN) 5 mg tablet Take 5 mg by mouth 3 times daily. Active diphenhydrAMINE (BENADRYL) 25 mg tablet Take 25 mg by mouth 2 times daily. Active traZODone (DESYREL) 50 mg tablet Take 50 mg by mouth daily at bedtime. Active LEFLUNOMIDE (ARAVA ORAL) Take by mouth. Active omeprazole (PRILOSEC) 20 mg Capsule, Delayed Release(E.C.) Take 40 mg by mouth daily. Active fexofenadine (JULES) 180 mg tablet Take 180 mg by mouth daily. Active CALCIUM CARBONATE/VITAM IN D3 (VITAMIN D-3 ORAL) Take by mouth. Active Social History Tobacco Use Types Packs/Day Years Used Date Smoking Tobacco: Never Alcohol Use Standard Drinks/Week Comments No 0 (1 standard drink = 0.6 oz pur e alcohol) Comments Unknown Sex and Gender Information Value Date Recorded Sex Assigned at Not on file Legal Sex Female 3:[address] Gender Identity Not on file Sexual Orientation Not on file Last Filed Vital Signs Vital Sign Reading Time Taken Comments Blood Pressure 181/78 09/09/2013 5:27 PM CDT Pulse - - Temperature 36.4 C (97.6 F) 09/09/2013 2:50 PM CDT Respiratory Rate 22 09/09/2013 5:27 PM CDT Oxygen Saturation 92% 09/09/2013 5:27 PM CDT Inhaled Oxygen Concentration - - Weight 86.2 kg (190 lb) 09/09/2013 2:50 PM CDT Height 156.2 cm (5' 1.5 ) 09/09/2013 2:50 PM CDT Body Mass Index 35.32 09/09/2013 2:50 PM CDT Plan of Treatment Health Maintenance Due Date Last Done Comments DTAP/TDAP/TD VACCINES (1 - Tdap) 1970 BREAST CANCER SCREENING 1991 COLORECTAL SCREENING 1996 Colorectal Cancer Screening 1996 FIT-DNA Q 3 years 1996 FIT/FOBT Q 1 year 1996 Flex Sig/CT Colonography Q 5 years 1996 PNEUMOCOCCAL VACCINE 65+ YEARS (1 of 1 - PCV) 05/28/19 02 ZOSTER VACCINE (1 of 2) 2001 OSTEOPOROSIS SCREENING 2016 INFLUENZA VACCINE (#1) 2023 RSV VACCINE (60+ or ) (1 - 1-dose 75+ series) 2026 Insurance MEDICARE PART A AND B Care Teams Garde Manager Relationship Specialty Start Date End Date Apolinar Young MD [address] [place] [address] PCP - General 08/20/06
--- OUTSIDE RECORDS SUMMARY | 2024-06-12 13:59 | XMS_ITS | Clinical Summary ---
Author Organization [facility] Address [address] [place] [address] Care Team Providers Care Television Writer Name Role Phone Unavailable Primary Care Provider Unavailabl e Social History Tobacco Use Types Packs/Day Years Used Date Smoking Tobacco: Never Assessed Comments Unknown Sex and Gender Information Value Date Recorded Sex Assigned at Not on file Legal Sex Female 7:53 PM CDT Gender Identity Not on file Sexual Orientation Not on file Plan of Treatment Health Maintenance Due Date Last Done Comments Colorectal Cancer Screening Colonoscopy (10 Years) 1951 Hepatitis C 1969 DTaP, Tdap and Td Vaccines ( 1 - Tdap) 1970 Mammogram Screening 1991 Zoster Vaccines (1 of 2) 2001 Dexa Scan (General) 2016 Pneumococcal Vaccine: 65+ Ye ars (1 of 1 - PCV) 2016 COVID-19 Vaccine (2023-2 5 season) 2024 Influenza Adult (#1) 2024 RSV Immunization or 60+ Years (1 - 1-dose 75+ series) 2026 Meningococcal B Vaccine Aged Out No l onger eligible based on patient's age to complete this topic Meningococcal Vaccine Aged Out No carye breana eligible based on patient's age to complete this topic RSV Immunizations Under 20 Months Aged Out No longer eligible based on patient's age to complete this topic
--- OUTSIDE RECORDS SUMMARY | 2024-06-12 13:59 | XMS_ITS | Data Portability ---
Author Organization [place] [facility],, Liliya vivar Address [address] [place] [address] Assessment No assessment recorded. Plan of Treatment Reminders Order Date Submit Date Provider Last Modified By Organization Details Last Modified Time Details Appointments None recorded. Lab allergy test, skin 021 021 [facility], [address], [address], [place], [address], 17:33:50 Referral None recorded. Procedures None recorded. Surgeries None recorded. Imaging None recorded. Medication Orders None recorded. Patient TargetsNo targets recorded. Patient Instructions Encounter Date Encounter Id Patient Instructions Last Modified By Organization Details Last Modified Time 12/23/2020 [id number] drug allergy: care instructions [email or web address] Not available 12/23/2020 15:04:40 Reason for Referral None Reported. Results Created Date Observation Date Name Description Value Unit Range Abnormal Flag Note LastModifiedBy Organization Detail LastModifiedTime Result Notes None recorded. Medical Equipment None Reported. Allergies Allergen ID Allergen Name Allergen Category Reaction Reaction Severity Criticality Documentation Date Start Date Code Code System Note Provider Name and Address Organization Details Recorded Time 96[address] cephaloth in sodium medicatio n Not available Not available Not available 12/23/2020 9860 [facility] maria dolores [place] - [facility], 12:20:57 Medications Name Sig Start Date Stop Date Status Note LastModified by Organization Details LastModified Time methylphenidate 10 mg tablet TAKE 3 TABLETS BY MOUTH ONCE DAILY active Not Available Not Available No t Available ondansetron HCl 4 mg tablet TAKE 1 TABLET BY MOUTH EVERY 8 HOURS NEEDED active Not Available Not Available No t Available prednisone 5 mg tablet TAKE 2 TABLETS BY MOUTH DAILY FOR 5 DAYS THEN 1 TABLET DAILY FOR 5 DAYS THEN 1 2 TABLET DAILY FOR 5 DAYS active Not Available Not Available No t Available clopidogrel 75 mg tablet TAKE 1 TABLET BY MOUTH ONCE DAILY active Not Available Not Available No t Available leflunomide 20 mg tablet TAKE 1 TABLET BY MOUTH ONCE DAILY FOR 90 DAYS active Not Available Not Available No t Available tramadol 50 mg tablet TAKE 2 TABLETS BY MOUTH 4 TIMES DAILY FOR PAIN active Not Available Not Available No t Available pantoprazole 20 mg tablet,delayed release TAKE 1 TABLET BY MOUTH ONCE DAILY IN THE MORNING active Not Available Not Available No t Available trazodone 100 mg tablet TAKE 1 TABLET BY MOUTH AT BEDTIME NEEDED FOR SLEEP active Not Available Not Available No t Available pantoprazole 40 mg tablet,delayed release TAKE 1 TABLET BY MOUTH ONCE DAILY IN THE MORNING active Not Available Not Available No t Available metoprolol succinate ER 25 mg tablet,extended release 24 hr TAKE 1 TABLET BY MOUTH ONCE DAILY active Not Available Not Available No t Available lorazepam 1 mg tablet TAKE ONE HALF TABLET BY MOUTH UP TO THREE TIMES EACH DAY NEEDED FOR ANXIETY active Not Available Not Available No t Available benazepril 40 mg tablet TAKE 1 TABLET BY MOUTH ONCE DAILY active Not Available Not Available No t Available fluticasone propionate 50 mcg/actuation nasal spray,suspensio n USE 2 SPRAY(S) IN EACH NOSTRIL ONCE DAILY active Not Available Not Available No t Available pregabalin 50 mg capsule TAKE 1 CAPSULE BY MOUTH ONCE DAILY active Not Available Not Available No t Available hydrochlorothia zide 12.5 mg tablet TAKE 1 TABLET BY MOUTH TWICE DAILY active Not Available Not Available No t Available Xeljanz XR 11 mg tablet,extended release active Not Available Not Available Not Available Olumiant 2 mg tablet active Not Available Not Available Not Available Vitals Date Recorded Body weight Heart rate Oxygen saturation Oxygen saturation in Arterial blood by Pulse oximetry Respiratory rate Body temperature Body mass index (BMI) Body height Systolic blood pressure Diastolic blood pressure Provider Name and Address Organization Details Last Updated DateTime 1 54962.4 4 g 58 /min 97 % 97 % 18 /min 98.1 [degF] 33.6 kg/m2 154.94 cm 130 mm[Hg] 80 mm[Hg] maria dolores [place] [facility], 1 12:20:09 Social History Question Answer Notes LastModified by Organizat ion Details LastModified Time Tobacco Smoking Status Never Smoker [facility] - [facility], 12/23/2020 12:21:14 What Is Your Level Of Alcohol Consumption? Occasional Information not available 12/23/2020 What Was The Date Of Your Most Recent Tobacco Screening? 12/23/2020 Information not available 12/23/2020 Do You Use Any Illicit Or Recreational Drugs? No Information not available 12/23/2020 Do You Or Have You Ever Used Any Other Forms Of Tobacco Or Nicotine? No Information not available 12/23/2020 Sex: Unknown Functional Status None recorded. Mental Status None recorded. Family History Nothing Reported. Medical History No medical history recorded. Gynecological HistoryNo gynecological history recorded. Obstetrics History GPAL:G 0 P 0 0 0 0 Past Encounters Encounter ID Performer Location Encounter Start Date Encounter Closed Date Diagnosis/Indication Diagnosis SNOMED-CT Code Diagnosis ICD10 Code Diagnosis Note [id number] Everardo perla MD OFFICE [address] [place], [place] [id number] 12/23/2020 11:18:25 12/23/2020 15:15:48 Allergy to drug 048879132 Z88.9 Patient was skin tested to [facility]. Unfortunapan khan she developed a headache during the testing and refused to complete the test. She tested negative had a 1-100 dilution, and a 1-10 dilution but did not get to the concentrat e. Therefore this was equivocal test. Health Concerns Section Related Observation LastModified by Organization Detai ls LastModified Time None Recorded Concern Status LastModified by Organization Details LastModified Time None Recorded Advance Directives Directive None Recorded Payers Encounter Date Sequence Insurance Name Policy Number Policy Maher Covered Member ID Maher Member ID Guarantor Name 12/23/2020 2 [employer] (MEDICARE SUPPLEMENT) Oneal Echeverria [id number] Oneal Echeverria 12/23/2020 1 [place]IC[place] Oneal Echeverria [id number] Oneal Echeverria Notes Date Note Type Note Provider Name and Address Organization Details Recorded Time 12/23/2020 text/html Patient is a 70-year-old woman with a history of ankylosing spondylitis. She has been on numerous 5 objects. She does not know which ones. She she comes in for testing to [facility]. She developed a significant headache almost immediately after starting the infusion. There was no skin rash, difficulty swallowing or difficulty breathing. Everardo Khan MD [address], [place], [address], [facility] [place] [facility], 12/23/2020 15:05:00 OBGyn Episode No OBEpisode recorded.
[2024-06-12 19:26] LABS: Basophils Absolute Auto 0.1 K/mm3 (0.0-0.1); Basophils Percent Auto 0.6 % (0.2-1.2); Eosinophils Absolute Auto 0.3 K/mm3 (0-0.3); Hematocrit 40.7 % (37.0-47.0); Hemoglobin 12.9 g/dL (12.0-15.0); Immature Granulocyte Absolute 0.06 K/mm3 (0.00-0.031); Immature Granulocyte Percent A 0.6 % (0-0.5); Lymphocytes Absolute Auto 1.74 K/mm3 (0.9-3.2); Lymphocytes Percent Auto 17.9 % (18.3-44.2); Mean Corpuscular HGB Conc 31.7 g/dl (32-36); Mean Corpuscular Hemoglobin 31.2 pg (26-34); Mean Corpuscular Volume 98.3 fl (80-100); Mean Platelet Volume 10.2 fl (7.4-10.4); Monocytes Absolute Auto 0.8 K/mm3 (0.1-0.6); Monocytes Percent Auto 8.1 % (2.6-8.5); Neutrophils Absolute Auto 6.8 K/mm3 (1.3-6.7); Neutrophils Percent Auto 69.8 % (45.5-73.1); Platelet Count Result 334 k/mm3 (150-375); Red Blood Count 4.14 M/mm3 (4.2-5.4); Red Cell Distribution Width 13.2 % (11.5-14.5); White Blood Count 9.7 K/mm3 (4.5-10.0)
[2024-06-12 20:04] LABS: Erythrocyte Sedimentation Rate 51 mm/hr (0-20)
[2024-06-12 20:35] LABS: Alanine Aminotransferase 19 U/L (6-35); Albumin Level 3.7 g/dL (3.5-5.1); Alkaline Phosphatase 115 U/L (38-126); Anion Gap 7 mmol/L (4-12); Aspartate Amino Transferase 26 U/L (14-36); Bilirubin,Total 0.4 mg/dL (0.2-1.3); Blood Urea Nitrogen 17 mg/dL (7-17); CRP 0.5 mg/dL (<1.0); Carbon Dioxide 30 mmol/L (22-30); Chloride 103 mmol/L (98-107); Estimated Glomerular Filt Rate > 60; Glucose 93 mg/dL (65-110); Potassium 4.5 mmol/L (3.4-5.0); Sodium 140 mmol/L (137-145)
== END 2024-06-12 13:56 | disposition home or self-care (01) ==
LOC: ANHGOSHLAB 13:57
PROVIDERS: PCP Family Medicine; Visit Provider Nurse Practitioner Family
DX: M05.79 Rheumatoid arthritis with rheumatoid factor of multiple sites without organ or systems involvement (principal); Z79.899 Other long term (current) drug therapy
CPT/HCPCS: 36415; 80053; 85025; 85652; 86140

== ENCOUNTER 2024-07-03 09:23 | Outpatient (CLI) | payer MEDICARE, OTHER, SELFPAY | END 2024-07-03 09:24 | disposition home or self-care (01) | LOC: CHSIMG 09:27 | PROVIDERS: PCP Family Medicine; Visit Provider Family Medicine | DX: N64.4 Mastodynia (principal); N63.20 Unspecified lump in the left breast, unspecified quadrant; Z85.3 Personal history of malignant neoplasm of breast; R92.8 Other abnormal and inconclusive findings on diagnostic imaging of breast | CPT/HCPCS: 76642; 77061; 77065; G0279 ==

== ENCOUNTER 2024-07-17 16:15 | Emergency (ER) | payer MEDICARE, OTHER, SELFPAY ==
--- NOTE | ~2024-07-17 | CT_ITS ---
CT abdomen pelvis w con Ordering provider: Ti Flood History: 74 years Female with . Lower abdominal pain, Dizzy when standing . Comparison: December 02, 2020 Technique: CT abdomen and pelvis with IV and without oral contrast. Automated exposure control and it erative reconstruction technique were employed. The dose-length product was 1397.86 mGy-cm. 100 mL Om nipaque 350 was given IV. Findings: VISUALIZED LOWER CHEST: Normal. Right breast implant. UPPER ABDOMINAL ORGANS: Liver: Normal. Gallbladder: Cholelithiasis. Spleen: Normal. Stomach/duodenum: Normal. Pancreas: Normal. Adrenals: Normal. Kidneys: Normal PELVIC ORGANS: The bladder is normal. BOWEL AND MESENTERY: Colon: No evidence of diverticulitis.. No evidence of appendicitis. Small Bowel: Normal. No obstruction. Peritoneum/mesentery: No free air or free fluid. No mesenteric lymphadenopathy. RETROPERITONEUM: Mild atheromatous disease of the abdominal aorta. No retroperitoneal lymphadenopat hy. MUSCULOSKELETAL: Superficial soft tissues: The superficial soft tissues are normal. Bones: Age appropriate degenerative changes of the spine. Minimal anterolisthesis at the level of C3- C4 and C4-C5. Minimal Retrolisthesis at the level of L1-L2. Bilateral sacroiliitis. IMPRESSION: 1. Cholelithiasis. 2. No evidence of appendicitis, diverticulitis or intestinal obstruction. Reviewed, dictated and finalized at location A.
--- NOTE | ~2024-07-17 | CT_ITS ---
CT brain wo con Ordering provider: Ti Flood History: 74 years Female with . Vertigo . Comparison: January 19, 2022 Technique: CT of the head without contrast. Radiation reduction technique utilized. The dose-length product was 605.33 mGy-cm. FINDINGS: BRAIN PARENCHYMA AND CSF SPACES: Mild leukoaraiosis and diffuse cortical atrophy. Mild atheromatous d isease. 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 No midline shift, mass effect or hemorrhage. The brain p arenchyma and CSF spaces are otherwise normal. VISUALIZED PARANASAL SINUSES: Well aerated. MASTOIDS: Well aerated. BONES: The bones appear intact. SOFT TISSUES: Visualized nasopharynx is normal. Superficial soft tissues are normal. IMPRESSION: No acute intracranial findings. Reviewed, dictated and finalized at location A.
--- NOTE | ~2024-07-17 | XR_ITS ---
CHEST RADIOGRAPH CLINICAL HISTORY: cough . COMPARISON: 11/23/2021 TECHNIQUE: Single portable view of the chest. FINDINGS The cardiomediastinal silhouette is unremarkable. The lungs are clear. Visualized osseous structures and soft tissues are unremarkable. IMPRESSION: No focal infiltrate or effusion. Reviewed, dictated and finalized at location A.
[2024-07-17 16:18] VITALS: BP 150/84; PULSE 87; RESP 16; TEMP 36.4; O2SAT 99
--- NOTE | 2024-07-17 17:16 | ECG_ITS ---
Test Date: 2024-07-17 20:38:28 Measurements Intervals [place] Rate: 70 P: 103 KS: 203 QRS: 3 QRSD: 88 T: 31 QT: 395 QTc: 427 Interpretive Statements SINUS RHYTHM WITH SINUS ARRHYTHMIA LOW QRS VOLTAGE IN PRECORDIAL LEADS [QRS DEFLECTION < 1.0 mV IN CHEST LEADS] POSSIBLE ANTERIOR MYOCARDIAL INFARCTION , PROBABLY OLD [30 ms Q WAVE IN V3/V4, OR R < 0.2 mV IN V4] No previous ECG available for comparison Electronically Signed On 07-18-2024 16:50:48 CDT by Phil Manning M.D.
--- NOTE | 2024-07-17 17:17 | ED_ITS ---
HPI - Dizziness General Chief Complaint: Dizziness <Darya Pierce PA-C - Last Filed: 07/17/24 17:20> Stated Complaint: Dizziness/ fall this AM, Vomitng x20 <Darya Pierce PA-C - Last Filed: 07/17/24 17:20> Time Seen by Provider: 07/17/24 18:59 <Darya Pierce PA-C - Last Filed: 07/17/24 17:20> Focused HPI: 74-year-old female with history of hypertension, GERD, RA, fibromyalgia, hyperlipidemia presents with daughter at bedside for dizziness nausea and vomiting that started today. Patient states she got up to go to the bathroom at 7:00 a.m. when she felt dizzy and fell to the ground. She did not hit her head or lose consciousness. She contacted EMS who came and helped her off of the ground and put her back in bed. She states since then she has been getting dizzy when she goes from sitting to standing position and has associated nausea and vomiting. She is reporting some abdominal discomfort when I asked her to elaborate on this pain she states ?feels like a nauseous and hungry?. She denies chest pain or shortness of breath, vision changes, focal numbness or weakness, lower extremity edema, dysuria or hematuria. She is endorsing a cough. No fevers GENERAL: Well-appearing, well-nourished, and in no acute distress. HEAD: Normocephalic, atraumatic. NECK/BACK: No midline spinous tenderness crepitus step-offs or deformities CHEST: Clear to auscultation. ?No respiratory distress. HEART: Regular rate and rhythm.? NEURO: ?Alert and oriented x3. Patient screened in triage and initial orders placed.? ?Additional care and disposition to be based upon?diagnostic testing and treatment. <Darya Pierce PA-C - Last Filed: 07/17/24 17:20> Related Data Home Medications: Home Medications ?Medication ?Instructions ?Recorded ?Confirmed ?Last Taken ?Type diphenhydramine HCl 25 mg capsule 50 mg PO QHS 05/19/22 07/01/24 Unknown History tramadol 50 mg tablet 100 mg PO QID 05/19/22 07/01/24 Unknown History trazodone 100 mg tablet 100 mg PO QHS PRN 07/31/22 07/01/24 Unknown History lorazepam 0.5 mg tablet 0.5 mg PO QHS PRN 08/23/23 07/01/24 Unknown History acetaminophen 500 mg oral powder 1,000 mg PO QID 07/01/24 07/01/24 Unknown History packet (Tylenol Extra Strength) cholecalciferol (vitamin D3) 50 50 mcg PO DAILY 07/01/24 07/01/24 Unknown History mcg (2,000 unit) capsule docusate sodium 100 mg capsule 100 mg PO BID 07/01/24 07/01/24 Unknown History duloxetine 30 mg capsule,delayed mg PO 07/01/24 07/01/24 Unknown History release fexofenadine 180 mg tablet 180 mg PO DAILY 07/01/24 07/01/24 Unknown History leflunomide 20 mg tablet mg PO 07/01/24 07/01/24 Unknown History <Darya Pierce PA-C - Last Filed: 07/17/24 17:20> Allergies/Adverse Reactions: Allergies Allergy/AdvReac Type Severity Reaction Status Date / Time cefuroxime Allergy Severe Swelling Verified 07/01/24 09:03 animal dander Allergy Intermediate Itching Verified 07/01/24 09:03 cat dander Allergy Intermediate sneezing Verified 07/01/24 09:03 latex Allergy Mild Itching Verified 07/01/24 09:03 mold Allergy Mild sneezing Verified 07/01/24 09:03 erythromycin base AdvReac Mild Nausea Verified 07/01/24 09:03 <Darya Pierce PA-C - Last Filed: 07/17/24 17:20> [facility] Past Medical History Medical History: Medical History (Updated 07/18/24 @ 00:49 by Ti Flood MD) History of breast cancer Peripheral neuropathy Cerebral vascular disease COVID-19 (~05/2021) Anxiety and depression Ankylosing spondylitis Chronic back pain On group home drug therapy GERD (gastroesophageal reflux disease) Obesity Hyperactivity of bladder Rheumatoid arthritis Essential (primary) hypertension Fibromyalgia History of malignant melanoma History of stroke Mixed hyperlipidemia Unspecified osteoarthritis, unspecified site Acute low back pain <ANGELIQUE Rich Last Filed: 07/17/24 17:20> Surgical History Surgical History: Surgical History History of total left knee replacement (11/22/21) History of bladder surgery History of right mastectomy breast reconstructive surgeries H/O repair of right rotator cuff <Darya Pierce PA-C - Last Filed: 07/17/24 17:20> Family History Family History: Family History Mother Cerebrovascular accident Hypertension Father Family history of chronic obstructive pulmonary disease Family history of lung cancer Hypertension Family history of emphysema Sibling Hypertension Other Depression Family history of arthritis Family history of malignant neoplasm <Darya Pierce PA-C - Last Filed: 07/17/24 17:20> Social History Social History: Social History Social History: The patient is and lives with her son. 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 She is a lifelong nonsmoker. She does not use any alcohol marijuana or illicit drugs. Her son is the durable power environmental attorney for healthcare. Code status full code Smoking status: Never smoker Second hand tobacco smoke exposure: No Alcohol intake: never Substance use: never Substance use type: does not use Lack of Transportation: No Lack of Food: Never True Current Housing: I Have Housing Concerned About Future Housing: No Difficulty Paying Gas/Electric Bills: No Difficulty Paying for Meds: No Currently Unemployed: No Education: Bachelor's Degree Difficulty w/ Childcare or Family Care: No Living arrangements: with family Occupation/Education: retired Gender identity (if verbalized by the patient): Female Sexual Orientation (if Verbalized by the Patient): Straight or Heterosexual Spiritual care concerns: No Agree to blood products: Yes <Darya Pierce PA-C - Last Filed: 07/17/24 17:20> Exam 2 Narrative: APPEARANCE: No apparent distress. Head: atraumatic. PERRLA, no nystagmus at rest. TMs normal bilaterally EYES: EOMI, NOSE: Atraumatic NECK: Trachea midline RESPIRATORY: No increased rate of breathing clear to auscultation CARDIOVASCULAR: RRR, no peripheral edema ABDOMINAL: Non-distended mild tenderness in the suprapubic region no CVA tenderness, no be guarding or rebound MUSCULOSKELETAl: No obvious deformities NEURO: Alert. Cranial nerves 2-12 grossly intact. Sensation light touch, motor function cerebellar function intact for 4 extremities. Gait exam was deferred SKIN:: Warm, dry. Normal color PSYCHIATRIC: Normal affect <Ti Flood MD - Last Filed: 07/18/24 00:57> Course Vital Signs Vital signs: Vital Signs Temperature 97.6 F 07/17/24 16:18 Pulse Rate 87 07/17/24 16:18 Respiratory Rate 16 07/17/24 16:18 Blood Pressure 150/84 H 07/17/24 16:18 Pulse Oximetry 99 07/17/24 16:18 Temperature 97.6 F 07/17/24 16:18 Pulse Rate 87 07/17/24 16:18 Respiratory Rate 16 07/17/24 16:18 Blood Pressure 150/84 H 07/17/24 16:18 Pulse Oximetry 99 07/17/24 16:18 <Darya Pierce PA-C - Last Filed: 07/17/24 17:20> Vital Signs Temperature 97.6 F 07/17/24 16:18 Pulse Rate 87 07/17/24 16:18 Respiratory Rate 16 07/17/24 16:18 Blood Pressure 150/84 H 07/17/24 16:18 Pulse Oximetry 99 07/17/24 16:18 Temperature 97.6 F 07/17/24 16:18 Pulse Rate 87 07/17/24 16:18 Respiratory Rate 16 07/17/24 16:18 Blood Pressure 150/84 H 07/17/24 16:18 Pulse Oximetry 99 07/17/24 16:18 <Ti Flood MD - Last Filed: 07/18/24 00:57> MDM - Dizziness MDM Narrative Medical decision making narrative: -Course: 74-year-old female presenting with triggerable, episodic vertigo. No findings on neurologic exam. Symptoms are consistent with a peripheral vertigo. She was given meclizine and scopolamine with some improvement. She was still slightly dizzy and received a dose of Reglan. That point she was feeling better and was requesting discharge. She was able to ambulate with walker which is her baseline. Patient was then discharged with meclizine scopolamine. She was given return precautions. Patient could not provide a urine sample. She refused a straight cath. I explained the risks of untreated urinary tract infections patient has verbalized understanding. -DDX includes but is not limited to: Peripheral vertigo, central vertigo CVA dehydration, UTI <Ti Flood MD - Last Filed: 07/18/24 00:57> Lab Data Result diagrams: 07/17/24 18:54 07/17/24 18:54 <Darya Pierce PA-C - Last Filed: 07/17/24 17:20> Labs: Lab Results 07/17/24 Range/Units 18:54 WBC 11.1 H (4.5-10.0) K/mm3 RBC 4.55 (4.2-5.4) M/mm3 Hgb 14.0 (12.0-15.0) g/dL Hct 41.9 (37.0-47.0) % MCV 92.1 (80-100) fl MCH 30.8 (26-34) pg MCHC 33.4 (32-36) g/dl RDW 13.2 (11.5-14.5) % Plt Count 319 (150-375) k/mm3 MPV 9.5 (7.4-10.4) fl Immature Gran % (Auto) 0.5 (0-0.5) % Neut % (Auto) 80.1 H (45.5-73.1) % Lymph % (Auto) 11.5 L (18.3-44.2) % Garden % (Auto) 6.8 (2.6-8.5) % Eos % (Auto) 0.6 (0-4.4) % Baso % (Auto) 0.5 (0.2-1.2) % Lymph # (Auto) 1.28 (0.9-3.2) K/mm3 Garden # (Auto) 0.8 H (0.1-0.6) K/mm3 Eos # (Auto) 0.1 (0-0.3) K/mm3 Baso # (Auto) 0.1 (0.0-0.1) K/mm3 Abs Immat Gran (auto) 0.05 H (0.00-0.031) K/mm3 Absolute Neuts (auto) 8.9 H (1.3-6.7) K/mm3 Absolute Nucleated RBC 0.000 (0.0-0.012) K/mm3 Nucleated RBC % 0.0 (0.0-0.2) % Sodium 141 (137-145) mmol/L Potassium 3.5 (3.4-5.0) mmol/L Chloride 104 (98-107) mmol/L Carbon Dioxide 25 (22-30) mmol/L Anion Gap 12 (4-12) mmol/L BUN 10 D (7-17) mg/dL Creatinine 0.58 L (0.7-1.0) mg/dL Estim Creat Clear Calc 75 ml/min Estimated GFR > 60 (59 - ) Glucose 114 H (65-110) mg/dL Calcium 9.8 (8.4-10.2) mg/dL Magnesium 1.9 (1.6-2.3) mg/dL Total Bilirubin 0.6 (0.2-1.3) mg/dL AST 32 (14-36) U/L ALT 26 (6-35) U/L Alkaline Phosphatase 165 H (38-126) U/L Total Protein 7.0 (6.3-8.2) g/dL Albumin 4.3 (3.5-5.1) g/dL Influenza A (RT-PCR) Negative (Negative) Influenza B (RT-PCR) Negative (Negative) RSV (RT-PCR) Negative (Negative) SARS-CoV-2 RNA (RT-PCR) Negative (Negative) <Darya Pierce PA-C - Last Filed: 07/17/24 17:20> Lab Results 07/17/24 Range/Units 18:54 WBC 11.1 H (4.5-10.0) K/mm3 RBC 4.55 (4.2-5.4) M/mm3 Hgb 14.0 (12.0-15.0) g/dL Hct 41.9 (37.0-47.0) % MCV 92.1 (80-100) fl MCH 30.8 (26-34) pg MCHC 33.4 (32-36) g/dl RDW 13.2 (11.5-14.5) % Plt Count 319 (150-375) k/mm3 MPV 9.5 (7.4-10.4) fl Immature Gran % (Auto) 0.5 (0-0.5) % Neut % (Auto) 80.1 H (45.5-73.1) % Lymph % (Auto) 11.5 L (18.3-44.2) % Garden % (Auto) 6.8 (2.6-8.5) % Eos % (Auto) 0.6 (0-4.4) % Baso % (Auto) 0.5 (0.2-1.2) % Lymph # (Auto) 1.28 (0.9-3.2) K/mm3 Garden # (Auto) 0.8 H (0.1-0.6) K/mm3 Eos # (Auto) 0.1 (0-0.3) K/mm3 Baso # (Auto) 0.1 (0.0-0.1) K/mm3 Abs Immat Gran (auto) 0.05 H (0.00-0.031) K/mm3 Absolute Neuts (auto) 8.9 H (1.3-6.7) K/mm3 Absolute Nucleated RBC 0.000 (0.0-0.012) K/mm3 Nucleated RBC % 0.0 (0.0-0.2) % Sodium 141 (137-145) mmol/L Potassium 3.5 (3.4-5.0) mmol/L Chloride 104 (98-107) mmol/L Carbon Dioxide 25 (22-30) mmol/L Anion Gap 12 (4-12) mmol/L BUN 10 D (7-17) mg/dL Creatinine 0.58 L (0.7-1.0) mg/dL Estim Creat Clear Calc 75 ml/min Estimated GFR > 60 (59 - ) Glucose 114 H (65-110) mg/dL Calcium 9.8 (8.4-10.2) mg/dL Magnesium 1.9 (1.6-2.3) mg/dL Total Bilirubin 0.6 (0.2-1.3) mg/dL AST 32 (14-36) U/L ALT 26 (6-35) U/L Alkaline Phosphatase 165 H (38-126) U/L Total Protein 7.0 (6.3-8.2) g/dL Albumin 4.3 (3.5-5.1) g/dL Influenza A (RT-PCR) Negative (Negative) Influenza B (RT-PCR) Negative (Negative) RSV (RT-PCR) Negative (Negative) SARS-CoV-2 RNA (RT-PCR) Negative (Negative) <Ti Flood MD - Last Filed: 07/18/24 00:57> Discharge Plan Discharge Clinical Impression: Vertigo <Darya Pierce PA-C - Last Filed: 07/17/24 17:20> Patient Disposition: Home, Self-Care <Darya Pierce PA-C - Last Filed: 07/17/24 17:20> Condition: Stable <Darya Pierce PA-C - Last Filed: 07/17/24 17:20> Instructions: Antibiotic Form, Vertigo (ED) <Darya Pierce PA-C - Last Filed: 07/17/24 17:20> Additional Instructions: You were seen in emergency department for vertigo. Please use meclizine and scopolamine patches for dizziness. If you develop worsening dizziness, persistent nausea vomiting, slurred speech or weakness in extremities please return to the ED for re-evaluation. Please follow-up with your primary care physician for further management. You can attempt the Chris maneuver at home as that may provide some relief. <Darya Pierce PA-C - Last Filed: 07/17/24 17:20> Patient Language: [place] African <Darya Pierce PA-C - Last Filed: 07/17/24 17:20> Prescriptions: New meclizine 25 mg tablet 25 mg PO TID Qty: 30 0RF scopolamine base 1 mg over 3 days patch 3 day 1 patch transdermal Q3D PRN (Reason: vertigo) Qty: 4 0RF No Action trazodone 100 mg tablet 100 mg PO QHS PRN lorazepam 0.5 mg tablet 0.5 mg PO QHS PRN tramadol 50 mg tablet 100 mg PO QID diphenhydramine HCl 25 mg capsule 50 mg PO QHS atorvastatin 40 mg tablet See Rx Instructions .ROUTE .COMPLEX Qty: 90 2RF Dose Instruction: Take 1 tablet by mouth once daily Rx Instructions: Take 1 tablet by mouth once daily cholecalciferol (vitamin D3) 50 mcg (2,000 unit) capsule 50 mcg PO DAILY docusate sodium 100 mg capsule 100 mg PO BID fexofenadine 180 mg tablet 180 mg PO DAILY Tylenol Extra Strength 500 mg powder in packet 1,000 mg PO QID duloxetine 30 mg capsule,delayed release(DR/EC) PO leflunomide 20 mg tablet PO fluticasone propionate 50 mcg/actuation spray,suspension 2 spray intranasal QAM Qty: 30 5RF EQ Aspirin Low Dose 81 MG Oral Tablet Chewable See Rx Instructions .ROUTE .COMPLEX Qty: 90 1RF Dose Instruction: CHEW AND SWALLOW 1 TABLET BY MOUTH ONCE DAILY AT 8AM Rx Instructions: CHEW AND SWALLOW 1 TABLET BY MOUTH ONCE DAILY AT 8AM hydrochlorothiazide 25 mg tablet 25 mg PO QAM Qty: 90 1RF metoprolol succinate [Toprol XL] 25 mg tablet extended release 24 hr 25 mg PO HS Qty: 90 1RF lisinopril 40 mg tablet 40 mg PO QAM Qty: 90 1RF hydralazine 25 mg tablet 25 mg PO TID Qty: 270 1RF potassium chloride [Klor-Con M20] 20 mEq tablet,ER particles/crystals 20 meq PO BID Qty: 60 5RF quetiapine [Seroquel] 25 mg tablet 12.5 mg PO HS Qty: 45 0RF pantoprazole 40 mg tablet,delayed release (DR/EC) See Rx Instructions .ROUTE .COMPLEX Qty: 90 0RF Dose Instruction: TAKE 1 TABLET BY MOUTH IN THE MORNING Rx Instructions: TAKE 1 TABLET BY MOUTH IN THE MORNING pregabalin 75 mg capsule 75 mg PO BID Qty: 60 1RF methylphenidate HCl 10 mg Tablet 10 mg PO TID Qty: 90 0RF timolol maleate 0.5 % Drops 1 drp EACH EYE Q12HR Qty: 30 0RF <Darya Pierce PA-C - Last Filed: 07/17/24 17:20> Follow-up/Referrals: Sherry Jesus DO [Primary Care Provider] - <Darya Pierce PA-C - Last Filed: 07/17/24 17:20>
--- OUTSIDE RECORDS SUMMARY | 2024-07-17 17:34 | XMS_ITS | Clinical Summary ---
Author Organization 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
--- OUTSIDE RECORDS SUMMARY | 2024-07-17 17:34 | XMS_ITS | Encounter Summary ---
Author Organization [facility] Address [address] [place] [address] Care Team Providers Care Front Desk Officer Name Role Phone Peace Young MD Primary Care Provider [phone] Reason for Visit * Diagnostic Imaging (Routine) - Pending Review Specialty Diagnoses / Procedures Referred By Contac t Referred To Contact Procedures Breast Imaging Screening Outside Reference Transcribed Order, Provider Referral ID Status Reason Start Date Expiration Date V isits Requested Visits Authorized [id number] Pending Review 07/08/2024 08/07/2025 1 1 Encounter Details Date Type Department Care Team (Late st Contact Info) Description 07/11/2014 Hospital Encounter [facility] [address] [place] [id number] Social History Tobacco Use Types Packs/Day Years Used Date Smoking Tobacco: Never Alcohol Use Standard Drinks/Week Comments Yes 0 (1 standard drink = 0.6 oz pur e alcohol) Comments Unknown Sex and Gender Information Value Date Recorded Sex Assigned at Not on file Legal Sex Female 10:21 PM LIBRARY MONITOR Gender Identity Not on file Sexual Orientation Not on file documented as of this encounter Plan of Treatment Not on file documented as of this encounter Procedures Procedure Name Priority Date/Time Associated Diagnosis Comments BREAST IMAGING MG SCREENING OUTSIDE REFERENCE Routine 07/11/2014 12:00 AM LIBRARY MONITOR documented in this encounter Results * Breast Imaging Screening Outside Reference (07/11/2014 12:00 AM LIBRARY MONITOR) Impressions RAD_MAMMO_[facility] - 07/08/2024 5:58 PM LIBRARY MONITOR These images are for Reference purposes only and have not been reviewed by [facility]. There will be no report generated by a [facility] Radiologist. Narrative [facility]_MAMMO_[facility] - 07/08/2024 5:58 PM LIBRARY MONITOR EXAMINATION: Images For Reference Purposes Only us Provider Transcribed Order IMG MAMMO PROCEDURES Final Result [facility] documented in this encounter Visit Diagnoses Not on filedocumented in this encounter Care Teams Front Desk Officer Relationship Specialty Start Date End Date Peace Young MD [address] [place] [address] PCP - General 12/06/09 08/03/16 documented as of this encounter
--- OUTSIDE RECORDS SUMMARY | 2024-07-17 17:34 | XMS_ITS | Continuity of Care Document ---
Author Organization [facility] Address [address] [place] [address] Phone Care Team Providers Care Data Capture Clerk Name Role Phone Hesham Vernon MD Unavailable Unavailable Procedures Procedure Date Office/outpatient visit,[facility] 2009 X-ray exam of shoulder, complete 2009 Advance Directives Directive Yes / No Effective Date File Name No Information Encounters Encounter Description Practice Location Reason(s) For Visit Diagnoses Date Provider Providers Copied on Encounter Office/outpat ient visit,[facility], [facility], [address], [place], [id number], tel:[phone] [facility] No Information 0 Saulo Dahl. [address] [place] [address] [address], [place], [place], [id number] , . tel:[phone] Referring Provider: Jonathan Kaufman, [address], [place], [address]. tel:[phone] Family History Family Member Type Diagnosis Age At Onset No Information Payers Payer name Insurance type Covered alliance party ID Authoriza tion(s) Renee Blue Cross Blue Sh[employer] d [place] [id number] Social History Type Description Quantity Date Captured [...]
--- OUTSIDE RECORDS SUMMARY | 2024-07-17 17:34 | XMS_ITS | Clinical Summary ---
Author Organization [facility] Address [address] [place] [address] Care Team Providers Care Pusher Runner Name Role Phone Hemalatha Shanks MD Unavailable Julius Galvin MD Primary Care Provider [phone] Sherry Jesus DO Unavailable [phone] Allergies Active Allergy Reactions Criticality Noted Date [...] 04/09/2017 Assessment & Plan (04/09/2017 12:56 PM EQUIPMENT SCHEDULER): Had rotator cuff surgery in 2008. Most painful joint today. Interested in going back to ortho. Gave name for Dr. Dykes. Knee pain 03/01/2017 Dermatitis 12/21/2016 Assessment & Plan (07/09/2017 11:51 AM EQUIPMENT SCHEDULER): Dermatitis to bilateral cheeks, sparing nasolabial folds. [...] 10/31/2016 Assessment & Plan (07/09/2017 12:14 PM EQUIPMENT SCHEDULER): Also likely source of pain. Discussed proper self-care, such as exercise and getting enough sleep to help manage symptoms. Will continue current regimen and f/u w/ pain management Assessment & Plan (04/09/2017 10:40 AM EQUIPMENT SCHEDULER): Continue current regimen and f/u with pain [...] 09/2017. Assessment & Plan (07/09/2017 11:37 AM EQUIPMENT SCHEDULER): Neg quantiferon 05/23 Assessment & Plan (04/09/2017 10:40 AM EQUIPMENT SCHEDULER): Neg quantiferon 04/21 Assessment & Plan (01/22/2017 [...] Shanks. Assessment & Plan (07/09/2017 12:05 PM EQUIPMENT SCHEDULER): Patient disease activity is high on leflunomide [...] PA-C Assessment & Plan (04/09/2017 12:55 PM EQUIPMENT SCHEDULER): cdai = 32 Her ultrasound done on [...] Encounters Date Type Department Care Team Description 07/08/2024 6:15 PM EQUIPMENT SCHEDULER - 07/08/2024 11:59 PM EQUIPMENT SCHEDULER Hospital Encounter [facility] ([facility]) [address] [place] [address] Discharge Disposition: Discharge to home or self care 07/03/2024 12:05 AM EQUIPMENT SCHEDULER - 07/03/2024 11:59 PM EQUIPMENT SCHEDULER Hospital Encounter [facility] ([facility]) [address] [place] [address] Discharge Disposition: Discharge to home or self care 07/03/2024 - 07/03/2024 11:59 PM EQUIPMENT SCHEDULER Hospital Encounter [facility] ([facility]) [address] [place] [address] Discharge Disposition: Discharge to home or self care 07/03/2024 Telephone [facility] ([facility]) [address] [place] [address] Elin Valenzuela RN 07/03/[address] [address] Stacey Knapp RN 07/03/[address] [address] Nahomy Abdul, JAYNE breast biopsy 05/09/2024 2:30 PM EQUIPMENT SCHEDULER Office Visit [facility] [address] [place] [address] [address] [place] [address] Minerva Fleming MD History of nonmelanoma skin cancer (Primary Dx); Inflamed seborrheic keratosis; Seborrheic keratosis; Irritant dermatitis from Last 3 Months Surgical History Surgery Date Site/Laterality Comments OTHER SURGICAL HISTORY 2010 Rotator Cuff Repair RT arm OTHER SURGICAL [...] on file Legal Sex Female 10:21 PM EQUIPMENT SCHEDULER Gender Identity Not on file Sexual Orientation [...] cm (5' 1 ) 06/08/2017 11:26 AM EQUIPMENT SCHEDULER Body Mass Index 34.96 06/08/2017 11:26 AM EQUIPMENT SCHEDULER Plan of Treatment Health Maintenance Due Date [...] Date/Time Associated Diagnosis Comments BREAST IMAGING MG DIAGNOSTIC OUTSIDE CONSULT Routine 07/08/2024 6:15 PM EQUIPMENT SCHEDULER BREAST IMAGING MG DIAGNOSTIC OUTSIDE REFERENCE Routine 07/03/2024 12:05 AM EQUIPMENT SCHEDULER BREAST IMAGING US OUTSIDE REFERENCE Routine 07/03/2024 12:00 AM EQUIPMENT SCHEDULER HEPATITIS PANEL, ACUTE Routine 05/29/2016 3:22 PM EQUIPMENT SCHEDULER from Last 3 Months or Most Recently Relevant to Health Maintenance Results * Breast Imaging DX Outside Consult (07/08/2024 6:15 PM EQUIPMENT SCHEDULER) Anatomical Region Laterality Modality Breast N/A Mammography 07/09/2024 9:40 AM EQUIPMENT SCHEDULER Impressions 07/09/2024 12:22 PM EQUIPMENT SCHEDULER Subareolar LEFT breast focal asymmetry with possible mass versus cyst on ultrasound. Repeat targeted ultrasound is recommended. OVERALL FINAL ASSESSMENT: BI-RADS Category 0: Incomplete - Need Additional Imaging Evaluation. RECOMMENDATION: Additional imaging - ultrasound evaluation of left breast sub-areolar focal asymmetry is recommended. NOTE: The findings, conclusions and recommendations within this report do not replace the initial findings, conclusions and recommendations made at the facility where the study was performed based upon the imaging and clinical condition at that time. Review of the prior report and correlation with the clinical history are necessary. The provided images may or may not represent the [place] source data set and thus may contain changes which may lower the sensitivity of the second opinion interpretation. Dictated by: Andrea Yañez M.D. The radiology attending physician has personally reviewed this study, and had reviewed and/or edited this written report and agrees with it. Electronically signed by: Prasanna Beltran MD Narrative 07/09/2024 12:22 PM EQUIPMENT SCHEDULER EXAMINATION: REVIEW AND INTERPRETATION OF OUTSIDE IMAGING FACILITY PERFORMING OUTSIDE IMAGING: [facility] EXAM(S) REVIEWED: 1. LEFT UNILATERAL DIAGNOSTIC MAMMOGRAM WITH TOMOSYNTHESIS, 07/03/2024 DATE OF INTERPRETATION: 07/09/2024 HISTORY: 74-year-old female with left breast tenderness with history of right-sided mastectomy (1993) for breast cancer with contralateral reduction mammoplasty. COMPARISON: Comparison screening mammogram from 11/30/2018. BREAST PARENCHYMAL COMPOSITION: There are scattered areas of fibroglandular density. FINDINGS: Subareolar focal asymmetry left BREAST mass. No discrete breast mass or calcification are seen. Reported ultrasound from outside hospital shows 6 irregular hypoechoic periareolar left breast mass with posterior shadowing. Procedure Note Prasanna Beltran MD - 07/09/2024 EXAMINATION: REVIEW AND INTERPRETATION OF OUTSIDE IMAGING FACILITY PERFORMING OUTSIDE IMAGING: [facility] EXAM(S) REVIEWED: 1. LEFT UNILATERAL DIAGNOSTIC MAMMOGRAM WITH TOMOSYNTHESIS, 07/03/2024 DATE OF INTERPRETATION: 07/09/2024 HISTORY: 74-year-old female with left breast tenderness with history of right-sided mastectomy (1993) for breast cancer with contralateral reduction mammoplasty. COMPARISON: Comparison screening mammogram from 11/30/2018. BREAST PARENCHYMAL COMPOSITION: There are scattered areas of fibroglandular density. FINDINGS: Subareolar focal asymmetry left BREAST mass. No discrete breast mass or calcification are seen. Reported ultrasound from outside hospital shows 6 irregular hypoechoic periareolar left breast mass with posterior shadowing. IMPRESSION: Subareolar LEFT breast focal asymmetry with possible mass versus cyst on ultrasound. Repeat targeted ultrasound is recommended. OVERALL FINAL ASSESSMENT: BI-RADS Category 0: Incomplete - Need Additional Imaging Evaluation. RECOMMENDATION: Additional imaging - ultrasound evaluation of left breast sub-areolar focal asymmetry is recommended. NOTE: The findings, conclusions and recommendations within this report do not replace the initial findings, conclusions and recommendations made at the facility where the study was performed based upon the imaging and clinical condition at that time. Review of the prior report and correlation with the clinical history are necessary. The provided images may or may not represent the [place] source data set and thus may contain changes which may lower the sensitivity of the second opinion interpretation. Dictated by: Andrea Yañez M.D. The radiology attending physician has personally reviewed this study, and had reviewed and/or edited this written report and agrees with it. Electronically signed by: Prasanna Beltran MD us Sherry Eugene Kierraleonarda DO IMG MAMMO PROCEDURES Final Result * Breast Imaging Diagnostic Outside Reference (07/03/2024 12:05 AM EQUIPMENT SCHEDULER) Impressions [facility]MO[facility] - 07/08/2024 5:58 PM EQUIPMENT SCHEDULER These images are for Reference purposes only and have not been reviewed by [facility]. There will be no report generated by a [facility] Radiologist. Narrative [facility]_MAMMO[facility] - 07/08/2024 5:58 PM EQUIPMENT SCHEDULER EXAMINATION: Images For Reference Purposes Only us Provider Transcribed Order IMG MAMMO PROCEDURES Final Result Performing Organization Address [facility] Co de Phone Number [email or web address] * Breast Imaging US Outside Reference (07/03/2024 12:00 AM EQUIPMENT SCHEDULER) Impressions [facility] - 07/08/2024 5:58 PM EQUIPMENT SCHEDULER These images are for Reference purposes only and have not been reviewed by [facility]. There will be no report generated by a [facility] Radiologist. Narrative [facility] - 07/08/2024 5:58 PM EQUIPMENT SCHEDULER EXAMINATION: Images For Reference Purposes Only us Provider Transcribed Order IMG MAMMO PROCEDURES Final Result Performing Organization Address [facility] Co de Phone Number [email or web address] * Hepatitis panel, acute (05/29/2016 3:22 PM EQUIPMENT SCHEDULER) Hep A IgM NON-REACT PATY NON-REACT PATY [facility] H[facility]ORICAL RESULTS Comment: Test performed at [facility] [place] [address] [facility] [place] [address] Director: GET ARROYO DO,MPH 05/29/2016 3:22 PM EQUIPMENT SCHEDULER Winston Grewal III, MD LAB MICROBIOLOGY - GENERAL ORDERABLES Final Result [facility] HISTORICAL RESULTS from Last 3 Months or Most Recently Relevant to Health Maintenance Insurance MEDICARE [facility] MEDICARE [employer] [employer] [facility] Care Teams Pusher Runner Relationship Specialty Start Date End Date Julius Galvin MD [address] [place] [address] [place] [address] PCP - General Family Medicine 12/05/22 [place] [address] [facility] [address] [place] [address] Rheumatology 01/19/17 Sherry Jesus DO [address] [place] [address] DR [address] [place] [address] Family Medicine 07/03/24
--- OUTSIDE RECORDS SUMMARY | 2024-07-17 17:34 | XMS_ITS | Referral Summary ---
Author Organization [facility] Address [address] [place] [address] Care Team Providers Care Contract Negotiation Specialist Name Role Phone Hemalatha Shanks MD Unavailable Julius Galvin MD Primary Care Provider Sherry Jesus DO Unavailable [phone] Encounters Date Type Department Care Team Description 07/08/2024 6:15 PM TILE LAYER HELPER - 07/08/2024 11:59 PM TILE LAYER HELPER Hospital Encounter [facility] ([facility]) [address] [place] [address] Discharge Disposition: Discharge to home or self care 07/03/2024 12:05 AM TILE LAYER HELPER - 07/03/2024 11:59 PM TILE LAYER HELPER Hospital Encounter [facility] ([facility]) [address] [place] [address] Discharge Disposition: Discharge to home or self care 07/03/2024 - 07/03/2024 11:59 PM TILE LAYER HELPER Hospital Encounter [facility] ([facility]) [address] [place] [address] Discharge Disposition: Discharge to home or self care 07/03/2024 Telephone [facility] ([facility]) [address] [place] [address] Elin Valenzuela RN 07/03/[address] [address] Stacey Knapp RN 07/03/2024 Telephone [facility] [address] [place] [address] Nahomy Abdul, JAYNE breast biopsy 05/09/2024 2:30 PM TILE LAYER HELPER Office Visit [facility] Dermatology [address] [facility] [address] [place] [address] Minerva Fleming MD History of nonmelanoma [...] 04/09/2017 Assessment & Plan (04/09/2017 12:56 PM TILE LAYER HELPER): Had rotator cuff surgery in 2008. Most painful joint today. Interested in going back to ortho. Gave name for Dr. Dykes. Knee pain 03/01/2017 Dermatitis 12/21/2016 Assessment & Plan (07/09/2017 11:51 AM TILE LAYER HELPER): Dermatitis to bilateral cheeks, sparing nasolabial folds. [...] 10/31/2016 Assessment & Plan (07/09/2017 12:14 PM TILE LAYER HELPER): Also likely source of pain. Discussed proper self-care, such as exercise and getting enough sleep to help manage symptoms. Will continue current regimen and f/u w/ pain management Assessment & Plan (04/09/2017 10:40 AM TILE LAYER HELPER): Continue current regimen and f/u with pain [...] 09/2017. Assessment & Plan (07/09/2017 11:37 AM TILE LAYER HELPER): Neg quantiferon 05/23 Assessment & Plan (04/09/2017 10:40 AM TILE LAYER HELPER): Neg quantiferon 04/21 Assessment & Plan (01/22/2017 [...] Shanks. Assessment & Plan (07/09/2017 12:05 PM TILE LAYER HELPER): Patient disease activity is high on leflunomide [...] PA-C Assessment & Plan (04/09/2017 12:55 PM TILE LAYER HELPER): cdai = 31 Her ultrasound done on [...] on file Legal Sex Female 10:21 PM TILE LAYER HELPER Gender Identity Not on file Sexual Orientation [...] cm (5' 1 ) 06/08/2017 11:26 AM TILE LAYER HELPER Body Mass Index 34.96 06/08/2017 11:26 AM TILE LAYER HELPER Plan of Treatment Not on file Procedures Procedure Name Priority Date/Time Associated Diagnosis Comments BREAST IMAGING MG DIAGNOSTIC OUTSIDE CONSULT Routine 07/08/2024 6:15 PM TILE LAYER HELPER BREAST IMAGING MG DIAGNOSTIC OUTSIDE REFERENCE Routine 07/03/2024 12:05 AM TILE LAYER HELPER BREAST IMAGING US OUTSIDE REFERENCE Routine 07/03/2024 12:00 AM TILE LAYER HELPER HEPATITIS PANEL, ACUTE Routine 05/29/2016 3:22 PM TILE LAYER HELPER from Last 3 Months or Most Recently Relevant to Health Maintenance Results * Breast Imaging DX Outside Consult (07/08/2024 6:15 PM TILE LAYER HELPER) Anatomical Region Laterality Modality Breast N/A Mammography 07/09/2024 9:40 AM TILE LAYER HELPER Impressions 07/09/2024 12:22 PM TILE LAYER HELPER Subareolar LEFT breast focal asymmetry with possible [...] images may or may not represent the [facility] source data set and thus may contain changes which may lower the sensitivity of the second opinion interpretation. Dictated by: Andrea Yañez M.D. The radiology attending physician has personally reviewed this study, and had reviewed and/or edited this written report and agrees with it. Electronically signed by: Prasanna Beltran MD Narrative 07/09/2024 12:22 PM TILE LAYER HELPER EXAMINATION: REVIEW AND INTERPRETATION OF OUTSIDE IMAGING FACILITY PERFORMING OUTSIDE IMAGING: [facility] EXAM(S) REVIEWED: 1. LEFT UNILATERAL DIAGNOSTIC MAMMOGRAM [...] OF OUTSIDE IMAGING FACILITY PERFORMING OUTSIDE IMAGING: [facility] EXAM(S) REVIEWED: 1. LEFT UNILATERAL DIAGNOSTIC MAMMOGRAM [...] images may or may not represent the [facility] source data set and thus may contain changes which may lower the sensitivity of the second opinion interpretation. Dictated by: Andrea Yañez M.D. The radiology attending physician has personally reviewed this study, and had reviewed and/or edited this written report and agrees with it. Electronically signed by: Prasanna Beltran MD us Sherry Jesus DO IMG MAMMO PROCEDURES Final Result * Breast Imaging Diagnostic Outside Reference (07/03/2024 12:05 AM TILE LAYER HELPER) Impressions [facility] - 07/08/2024 5:58 PM TILE LAYER HELPER These images are for Reference purposes only and have not been reviewed by [facility] Radiology. There will be no report generated by a [facility] Radiologist. Narrative [facility]_M[facility]MO[facility] - 07/08/2024 5:58 PM TILE LAYER HELPER EXAMINATION: Images For Reference Purposes Only us Provider Transcribed Order IMG MAMMO PROCEDURES Final Result [facility] * Breast Imaging US Outside Reference (07/03/2024 12:00 AM TILE LAYER HELPER) Impressions [facility] - 07/08/2024 5:58 PM TILE LAYER HELPER These images are for Reference purposes only and have not been reviewed by [facility]. There will be no report generated by a [facility] Radiologist. Narrative [facility] - 07/08/2024 5:58 PM TILE LAYER HELPER EXAMINATION: Images For Reference Purposes Only us Provider Transcribed Order IMG MAMMO PROCEDURES Final Result [facility] * Hepatitis panel, acute (05/29/2016 3:22 PM TILE LAYER HELPER) Hep A IgM NON-REACT PATY NON-REACT PATY [facility] HISTORICAL RESULTS Comment: Test performed at [facility] [address] [place] [address] Director: GET ARROYO DO,MPH 05/29/2016 3:22 PM TILE LAYER HELPER us Winston Grewal III, MD LAB MICROBIOLOGY - GENERAL ORDERABLES Final Result [facility] HISTORICAL RESULTS from Last 3 Months or Most Recently Relevant to Health Maintenance Insurance MEDICARE [facility] MEDICARE [employer] MEDICARE [facility] MEDICARE [employer] Care Teams Contract Negotiation Specialist Relationship Specialty Start Date End Date Julius Galvin MD [address] [place] [address] [address] [place], [place] [id number] PCP - General Family Medicine 12/05/22 [place] [address] [facility] [address] [place] [address] Rheumatology 01/19/17 Sherry Jesus DO [address] [place] [address] [address] [place], [place] [id number] Family Medicine 07/03/24
--- OUTSIDE RECORDS SUMMARY | 2024-07-17 17:34 | XMS_ITS | Encounter Summary ---
Author Organization [employer] Address [address] [place] [address] Care Team Providers Care Clinical Physician Assistant Name Role Phone Apolinar Young MD Primary Care Provider [phone] Encounter Details Date Type Department Care Team (Late st Contact Info) Description 08/20/2006 Outpatient Historical [facility] Luanne Damon MD [address] [facility] [address] [place] [address] Esophageal Reflux (Primary Dx) Social History Tobacco Use Types Packs/Day Years Used Date Smoking Tobacco: Never Assessed Comments Unknown Sex and Gender Information Value Date Recorded Sex Assigned at Not on file Legal Sex Female 3:22 AM OUTSIDE SALESPERSON Gender Identity Not on file Sexual Orientation Not on file documented as of this encounter Plan of Treatment Not on file documented as of this encounter Visit Diagnoses Diagnosis Esophageal reflux- Primary documented in this encounter Care Teams Clinical Physician Assistant Relationship Specialty Start Date End Date Apolinar Young MD [address] [place] [address] PCP - General 08/20/06 documented as of this encounter
--- OUTSIDE RECORDS SUMMARY | 2024-07-17 17:34 | XMS_ITS | Encounter Summary ---
Author Organization [facility] Healthcare Address [address] [place] [address] Care Team Providers Care Wheel Loader Operator Name Role Phone Peace Young MD Primary Care Provider [phone] Reason for Visit * Diagnostic Imaging (Routine) - Pending Review Specialty Diagnoses / Procedures Referred By Contac t Referred To Contact Procedures Breast Imaging Screening Outside Reference Transcribed Order, Provider Referral ID Status Reason Start Date Expiration Date V isits Requested Visits Authorized [id number] Pending Review 07/08/2024 08/07/2025 1 1 Encounter Details Date Type Department Care Team (Late st Contact Info) Description 11/10/2011 Hospital Encounter [facility] [address] [place] [address] Social History Tobacco Use Types Packs/Day Years Used Date Smoking Tobacco: Never Alcohol Use Standard Drinks/Week Comments Yes 0 (1 standard drink = 0.6 oz pur e alcohol) Comments Unknown Sex and Gender Information Value Date Recorded Sex Assigned at Not on file Legal Sex Female 10:21 PM YARD SPOTTER Gender Identity Not on file Sexual Orientation Not on file documented as of this encounter Plan of Treatment Not on file documented as of this encounter Procedures Procedure Name Priority Date/Time Associated Diagnosis Comments BREAST IMAGING MG SCREENING OUTSIDE REFERENCE Routine 11/10/2011 12:00 AM CDT documented in this encounter Results * Breast Imaging Screening Outside Reference (11/10/2011 12:00 AM CDT) Impressions RAD_MAMMO_[facility] - 07/08/2024 5:58 PM YARD SPOTTER These images are for Reference purposes only and have not been reviewed by [facility] Radiology. There will be no report generated by a [facility] Radiologist. Narrative RAD_MAMMO[facility] - 07/08/2024 5:58 PM YARD SPOTTER EXAMINATION: Images For Reference Purposes Only us Provider Transcribed Order IMG MAMMO PROCEDURES Final Result [facility] documented in this encounter Visit Diagnoses Not on filedocumented in this encounter Care Teams Wheel Loader Operator Relationship Specialty Start Date End Date Peace Young MD [address] [place] [address] PCP - General 12/06/09 08/03/16 documented as of this encounter
--- OUTSIDE RECORDS SUMMARY | 2024-07-17 17:34 | XMS_ITS | Data Portability ---
Author Organization [place] [facility],, Liliya vivar Address [address] [place] [address] Assessment No assessment recorded. Plan of Treatment Reminders Order Date Submit Date Provider Last Modified By Organization Details Last Modified Time Details Appointments None recorded. Lab allergy test, skin 021 021 [facility], [address], [address], [place], [address], 17:33:50 Referral None recorded. Procedures None recorded. Surgeries None recorded. Imaging None recorded. Medication Orders None recorded. Patient TargetsNo targets recorded. Patient Instructions Encounter Date Encounter Id Patient Instructions Last Modified By Organization Details Last Modified Time 12/23/2020 [id number] drug allergy: care instructions [email or web address] Not available [...] Name and Address Organization Details Recorded Time 07340 cephaloth in sodium medicatio n Not available Not available Not available 12/23/2020 [id number] [facility] maria dolores lambert [place] [facility], 12:20:57 Medications [...] Address Organization Details Last Updated DateTime 1 04103.4 4 g 58 /min 97 % 97 [...] SNOMED-CT Code Diagnosis ICD10 Code Diagnosis Note [id number] Everardo perla MD OFFICE [address] [place], [place] [phone] 12/23/2020 11:18:25 12/23/2020 15:15:48 Allergy to drug [id number] Z88.9 Patient was skin tested to Actemra. [...] ID Guarantor Name 12/23/2020 2 [employer] (MEDICARE SUPPLEMENT) Oneal Echeverria [id number] Oneal Echeverria 12/23/2020 1 MEDICARE [place]: [place] Oneal Echeverria [id number] Oneal Echeverria Notes Date Note Type [...] Khan MD [address], [place], [address], [facility], 12/23/2020 15:05:00 OBGyn Episode No OBEpisode recorded.
--- OUTSIDE RECORDS SUMMARY | 2024-07-17 17:34 | XMS_ITS | Encounter Summary ---
Author Organization [facility] Healthcare Address [address] [place] [address] Care Team Providers Care Maintenance Mechanic Engine Name Role Phone Peace Young MD Primary Care Provider [phone] Hemalatha Shanks MD Unavailable Reason for Visit * Diagnostic Imaging (Routine) - Pending Review Specialty Diagnoses / Procedures Referred By Contac t Referred To Contact Procedures Breast Imaging Screening Outside Reference Transcribed Order, Provider Referral ID Status Reason Start Date Expiration Date V isits Requested Visits Authorized [id number] Pending Review 07/08/2024 08/07/2025 1 1 Encounter Details Date Type Department Care Team (Late st Contact Info) Description 11/30/2018 Hospital Encounter [facility] [address] [place] [address] Social History Tobacco Use Types Packs/Day Years Used Date Smoking Tobacco: Never Alcohol Use Standard Drinks/Week Comments Yes 0 (1 standard drink = 0.6 oz pur e alcohol) Comments Unknown Sex and Gender Information Value Date Recorded Sex Assigned at Not on file Legal Sex Female 10:21 PM SLACK COOPER Gender Identity Not on file Sexual Orientation Not on file documented as of this encounter Plan of Treatment Not on file documented as of this encounter Procedures Procedure Name Priority Date/Time Associated Diagnosis Comments BREAST IMAGING MG SCREENING OUTSIDE REFERENCE Routine 11/30/2018 12:00 AM CDT documented in this encounter Results * Breast Imaging Screening Outside Reference (11/30/2018 12:00 AM CDT) Impressions [facility] - 07/08/2024 5:58 PM SLACK COOPER These images are for Reference purposes only and have not been reviewed by [facility] Radiology. There will be no report generated by a [facility] Radiologist. Narrative [facility] - 07/08/2024 5:58 PM SLACK COOPER EXAMINATION: Images For Reference Purposes Only us Provider Transcribed Order IMG MAMMO PROCEDURES Final Result [facility] documented in this encounter Visit Diagnoses Not on filedocumented in this encounter Care Teams Maintenance Mechanic Engine Relationship Specialty Start Date End Date Peace Young MD [address] [place] [address] PCP - General 01/16/17 12/04/22 [place] [address] [facility] [address] [place] [address] Rheumatology 01/19/17 documented as of this encounter
--- OUTSIDE RECORDS SUMMARY | 2024-07-17 17:35 | XMS_ITS | Referral Summary ---
Author Organization [facility] Address [address] [place] [address] Care Team Providers Care Mine Captain Name Role Phone Peace Young MD Primary Care Provider [phone] Source Comments [facility],non-owned Affiliates and Associated Physician Practices is amultiple site organization consisting of ambulatory clinics and hospital sitesin [place], [place], [place] and [place]. This disclosure is being madepursuant to the Care Everywhere program and may not contain all information available regarding this patient. Last updated 18.[facility] [employer] Social History Tobacco Use Types Packs/Day Years Used Date Smoking Tobacco: Never Assessed Sex and Gender Information Value Date Recorded Sex Assigned at Not on file Gender Identity Not on file Sexual Orientation Not on file Plan of Treatment Not on file Care Teams Mine Captain Relationship Specialty Start Date End Date Peace Young MD [address] [place] [address] PCP - General Family Medicine 02/17/14
--- OUTSIDE RECORDS SUMMARY | 2024-07-17 17:35 | XMS_ITS | Clinical Summary ---
Author Organization [facility] [employer] Address [address] [place] [address] Care Team Providers Care Bag Builder Name Role Phone Peace Young MD Primary Care Provider [phone] Source Comments [facility],non-owned Affiliates and Associated Physician Practices is amultiple site organization consisting of ambulatory clinics and hospital sitesin [place], [place], [place] and [place]. This disclosure is being madepursuant to the Care Everywhere program and may not contain all information available regarding this patient. Last updated 18.[facility] [employer] Social History Tobacco Use Types Packs/Day Years [...] to complete this topic MENINGOCOCCAL (Group B) VACC INE SHARED DECISION-MAKING Aged Out No longer eligibl e based on patient's age to complete this topic MENINGOCOCCAL GROUPS A/C/Y/W VACCINE Aged Out No longer eligible b ased on patient's age to complete this topic Care Teams Bag Builder Relationship Specialty Start Date End Date Peace Young MD [address] [place] [address] PCP - General Family Medicine 02/17/14
--- OUTSIDE RECORDS SUMMARY | 2024-07-17 17:35 | XMS_ITS | Patient Health Summary ---
Author Organization [facility] Address [address] [place] [address] Care Team Providers Care Pump Oiler Name Role Phone Peace Young MD Primary Care Provider [phone] Note from [facility],non-owned Affiliates and Associated Physician Practices is amultiple site organization consisting of ambulatory clinics and hospital sitesin [place], [place], [place] and [place]. This disclosure is being madepursuant to the Care Everywhere program and may not contain all information available regarding this patient. Last updated 18.[facility] Social History Tobacco Use Types Packs/Day Years [...] MD DIAGNOSTIC IMAGING O [facility] Care Teams Pump Oiler Relationship Specialty Start Date End Date Peace Young MD [address] [place] [id number] PCP - General Family Medicine 02/17/14
--- OUTSIDE RECORDS SUMMARY | 2024-07-17 17:35 | XMS_ITS | Clinical Summary ---
Author Organization [facility] Address [address] [place] [address] Care Team Providers Care Barrel Dedenting Machine Operator Name Role Phone Unavailable Primary Care Provider [...] this topic Meningococcal Vaccine Aged Out No carey breana eligible based on patient's age to complete this topic RSV Immunizations Under 20 Months Aged Out No longer eligible based on patient's age to complete this topic
[2024-07-17 19:01] LABS: Basophils Absolute Auto 0.1 K/mm3 (0.0-0.1); Basophils Percent Auto 0.5 % (0.2-1.2); Eosinophils Absolute Auto 0.1 K/mm3 (0-0.3); Eosinophils Percent Auto 0.6 % (0-4.4); Hematocrit 41.9 % (37.0-47.0); Immature Granulocyte Absolute 0.05 K/mm3 (0.00-0.031); Immature Granulocyte Percent A 0.5 % (0-0.5); Lymphocytes Absolute Auto 1.28 K/mm3 (0.9-3.2); Lymphocytes Percent Auto 11.5 % (18.3-44.2); Mean Corpuscular HGB Conc 33.4 g/dl (32-36); Mean Corpuscular Hemoglobin 30.8 pg (26-34); Mean Corpuscular Volume 92.1 fl (80-100); Mean Platelet Volume 9.5 fl (7.4-10.4); Monocytes Absolute Auto 0.8 K/mm3 (0.1-0.6); Monocytes Percent Auto 6.8 % (2.6-8.5); Neutrophils Absolute Auto 8.9 K/mm3 (1.3-6.7); Neutrophils Percent Auto 80.1 % (45.5-73.1); Platelet Count Result 319 k/mm3 (150-375); Red Blood Count 4.55 M/mm3 (4.2-5.4); Red Cell Distribution Width 13.2 % (11.5-14.5); White Blood Count 11.1 K/mm3 (4.5-10.0)
[2024-07-17 19:10] LABS: Alanine Aminotransferase 26 U/L (6-35); Albumin Level 4.3 g/dL (3.5-5.1); Alkaline Phosphatase 165 U/L (38-126); Anion Gap 12 mmol/L (4-12); Aspartate Amino Transferase 32 U/L (14-36); Bilirubin,Total 0.6 mg/dL (0.2-1.3); Blood Urea Nitrogen 10 mg/dL (7-17); Calcium 9.8 mg/dL (8.4-10.2); Carbon Dioxide 25 mmol/L (22-30); Chloride 104 mmol/L (98-107); Estimated CRCL calculation 75 ml/min; Estimated Glomerular Filt Rate > 60; Glucose 114 mg/dL (65-110); Magnesium 1.9 mg/dL (1.6-2.3); Potassium 3.5 mmol/L (3.4-5.0); Sodium 141 mmol/L (137-145)
--- OUTSIDE RECORDS SUMMARY | 2024-07-17 19:32 | XMS_ITS | Patient Health Summary ---
Author Organization [facility] Address [address] [place] [address] Care Team Providers Care Mainspring Winder Name Role Phone Peace Young MD Primary Care Provider [phone] Note from [facility],non-owned Affiliates and Associated Physician Practices is amultiple site organization consisting of ambulatory clinics and hospital sitesin [place], [place], [place] and [place]. This disclosure is being madepursuant to the Care Everywhere program and may not contain all information available regarding this patient. Last updated 18.[facility] Social History Tobacco Use Types Packs/Day Years [...] MD DIAGNOSTIC IMAGING O [facility] Care Teams Mainspring Winder Relationship Specialty Start Date End Date Peace Young MD [address] [place] [address] PCP - General Family Medicine 02/17/14
--- OUTSIDE RECORDS SUMMARY | 2024-07-17 19:32 | XMS_ITS | Clinical Summary ---
Author Organization [facility] Address [address] [place] [address] Care Team Providers Care Engraving Plate Maker Name Role Phone Unavailable Primary Care Provider [...]
--- OUTSIDE RECORDS SUMMARY | 2024-07-17 19:32 | XMS_ITS | Clinical Summary ---
Author Organization [facility] Address [address] [place] [address] Care Team Providers Care Aerial Survey Technician Name Role Phone Peace Young MD Primary Care Provider [phone] Source Comments [facility],non-owned Affiliates and Associated Physician Practices is amultiple site organization consisting of ambulatory clinics and hospital sitesin [place], [place], [place] and [place]. This disclosure is being madepursuant to the Care Everywhere program and may not contain all information available regarding this patient. Last updated 18.[facility] Social History Tobacco Use Types Packs/Day Years [...] age to complete this topic Care Teams Aerial Survey Technician Relationship Specialty Start Date End Date Peace Yonug MD [address] [place] [address] PCP - General Family Medicine 02/17/14
--- OUTSIDE RECORDS SUMMARY | 2024-07-17 19:32 | XMS_ITS | Referral Summary ---
Author Organization [facility] Address [address] [place] [address] Care Team Providers Care Perch Machine Inspector Name Role Phone Peace Young MD Primary Care Provider [phone] Source Comments [facility],non-owned Affiliates and Associated Physician Practices is amultiple site organization consisting of ambulatory clinics and hospital sitesin [place], [place], [place] and [place]. This disclosure is being madepursuant to the Care Everywhere program and may not contain all information available regarding this patient. Last updated 18.[facility] [employer] Social History Tobacco Use Types Packs/Day Years Used Date Smoking Tobacco: Never Assessed Sex and Gender Information Value Date Recorded Sex Assigned at Not on file Gender Identity Not on file Sexual Orientation Not on file Plan of Treatment Not on file Care Teams Perch Machine Inspector Relationship Specialty Start Date End Date Peace Young MD [address] [place] [address] PCP - General Family Medicine 02/17/14
--- OUTSIDE RECORDS SUMMARY | 2024-07-17 19:32 | XMS_ITS | Referral Summary ---
Author Organization [facility] Address [address] [place] [address] Care Team Providers Care District Claims Manager Name Role Phone Hemalatha Shanks MD Unavailable Julius Galvin MD Primary Care Provider [phone] Sherry Jesus DO Unavailable [phone] Encounters Date Type Department Care Team Description 07/08/2024 6:15 PM JUSTOWRITER OPERATOR - 07/08/2024 11:59 PM JUSTOWRITER OPERATOR Hospital Encounter [facility] ([facility]) [address] [place] [address] Discharge Disposition: Discharge to home or self care 07/03/2024 12:05 AM JUSTOWRITER OPERATOR - 07/03/2024 11:59 PM JUSTOWRITER OPERATOR Hospital Encounter [facility] ([facility]) [address] [place] [address] Discharge Disposition: Discharge to home or self care 07/03/2024 - 07/03/2024 11:59 PM JUSTOWRITER OPERATOR Hospital Encounter [facility] ([facility]) [address] [place] [address] Discharge Disposition: Discharge to home or self care 07/03/2024 Telephone [facility] Breast [facility] ([facility]) [address] [place] [address] Elin Valenzuela RN 07/03/[address] [address] Stacey Knapp RN 07/03/[address] [facility] [address] [place] [address] Nahomy Abdul, JAYNE breast biopsy 05/09/2024 2:30 PM JUSTOWRITER OPERATOR Office Visit [facility] Dermatology [address] [place] [address] Minerva [...] 04/09/2017 Assessment & Plan (04/09/2017 12:56 PM JUSTOWRITER OPERATOR): Had rotator cuff surgery in 2008. Most painful joint today. Interested in going back to ortho. Gave name for Dr. Dykes. Knee pain 03/01/2017 Dermatitis 12/21/2016 Assessment & Plan (07/09/2017 11:51 AM JUSTOWRITER OPERATOR): Dermatitis to bilateral cheeks, sparing nasolabial folds. [...] 10/31/2016 Assessment & Plan (07/09/2017 12:14 PM JUSTOWRITER OPERATOR): Also likely source of pain. Discussed proper self-care, such as exercise and getting enough sleep to help manage symptoms. Will continue current regimen and f/u w/ pain management Assessment & Plan (04/09/2017 10:40 AM JUSTOWRITER OPERATOR): Continue current regimen and f/u with pain [...] 09/2017. Assessment & Plan (07/09/2017 11:37 AM JUSTOWRITER OPERATOR): Neg quantiferon 05/23 Assessment & Plan (04/09/2017 10:40 AM JUSTOWRITER OPERATOR): Neg quantiferon 04/21 Assessment & Plan (01/22/2017 [...] Shanks. Assessment & Plan (07/09/2017 12:05 PM JUSTOWRITER OPERATOR): Patient disease activity is high on leflunomide [...] PA-C Assessment & Plan (04/09/2017 12:55 PM JUSTOWRITER OPERATOR): cdai = 31 Her ultrasound done on [...] on file Legal Sex Female 10:21 PM JUSTOWRITER OPERATOR Gender Identity Not on file Sexual Orientation [...] cm (5' 1 ) 06/08/2017 11:26 AM JUSTOWRITER OPERATOR Body Mass Index 34.96 06/08/2017 11:26 AM JUSTOWRITER OPERATOR Plan of Treatment Not on file Procedures Procedure Name Priority Date/Time Associated Diagnosis Comments BREAST IMAGING MG DIAGNOSTIC OUTSIDE CONSULT Routine 07/08/2024 6:15 PM JUSTOWRITER OPERATOR BREAST IMAGING MG DIAGNOSTIC OUTSIDE REFERENCE Routine 07/03/2024 12:05 AM JUSTOWRITER OPERATOR BREAST IMAGING US OUTSIDE REFERENCE Routine 07/03/2024 12:00 AM JUSTOWRITER OPERATOR HEPATITIS PANEL, ACUTE Routine 05/29/2016 3:22 PM JUSTOWRITER OPERATOR from Last 3 Months or Most Recently Relevant to Health Maintenance Results * Breast Imaging DX Outside Consult (07/08/2024 6:15 PM JUSTOWRITER OPERATOR) Anatomical Region Laterality Modality Breast N/A Mammography 07/09/2024 9:40 AM JUSTOWRITER OPERATOR Impressions 07/09/2024 12:22 PM JUSTOWRITER OPERATOR Subareolar LEFT breast focal asymmetry with possible [...] images may or may not represent the pechanga source data set and thus may contain changes which may lower the sensitivity of the second opinion interpretation. Dictated by: Andrea Yañez M.D. The radiology attending physician has personally reviewed this study, and had reviewed and/or edited this written report and agrees with it. Electronically signed by: Prasanna Beltran MD Narrative 07/09/2024 12:22 PM JUSTOWRITER OPERATOR EXAMINATION: REVIEW AND INTERPRETATION OF OUTSIDE IMAGING FACILITY PERFORMING OUTSIDE IMAGING: [facility] EXAM(S) REVIEWED: 1. LEFT UNILATERAL DIAGNOSTIC MAMMOGRAM [...] OF OUTSIDE IMAGING FACILITY PERFORMING OUTSIDE IMAGING: [facility] EXAM(S) REVIEWED: 1. LEFT UNILATERAL DIAGNOSTIC MAMMOGRAM [...] images may or may not represent the pechanga source data set and thus may contain [...] Imaging Diagnostic Outside Reference (07/03/2024 12:05 AM JUSTOWRITER OPERATOR) Impressions [facility] - 07/08/2024 5:58 PM JUSTOWRITER OPERATOR These images are for Reference purposes only and have not been reviewed by [facility] Radiology. There will be no report generated by a [facility] Radiologist. Narrative [facility] - 07/08/2024 5:58 PM JUSTOWRITER OPERATOR EXAMINATION: Images For Reference Purposes Only us Provider Transcribed Order IMG MAMMO PROCEDURES Final Result [facility] * Breast Imaging US Outside Reference (07/03/2024 12:00 AM JUSTOWRITER OPERATOR) Impressions [facility] - 07/08/2024 5:58 PM JUSTOWRITER OPERATOR These images are for Reference purposes only and have not been reviewed by [facility] Radiology. There will be no report generated by a [facility] Radiologist. Narrative [facility] - 07/08/2024 5:58 PM JUSTOWRITER OPERATOR EXAMINATION: Images For Reference Purposes Only us Provider Transcribed Order IMG MAMMO PROCEDURES Final Result [facility] * Hepatitis panel, acute (05/29/2016 3:22 PM JUSTOWRITER OPERATOR) Hep A IgM NON-REACT PATY NON-REACT PATY [facility] RES[facility] Comment: Test performed at [facility] [address] [place] [address] Director: GET ARROYO DO,MPH 05/29/2016 3:22 PM JUSTOWRITER OPERATOR us Winston Grewal III, MD LAB MICROBIOLOGY - GENERAL ORDERABLES Final Result [facility]ORICAL RESULTS from Last 3 Months or Most Recently Relevant to Health Maintenance Insurance MEDICARE [facility] MEDICARE [place] MEDICARE [facility] MEDICARE [employer] Care Teams District Claims Manager Relationship Specialty Start Date End Date Julius Galvin MD [address] [place] [address] [address] [place], [place] [id number] PCP - General Family Medicine 12/05/22 [place] [address] [facility] [address] [place] [address] Rheumatology 01/19/17 Sherry Jesus DO [address] [place] [address] [address] [place], [place] [id number] Family Medicine 07/03/24
--- OUTSIDE RECORDS SUMMARY | 2024-07-17 19:32 | XMS_ITS | Clinical Summary ---
Author Organization [facility] Address [address] [place] [address] Care Team Providers Care Burrer Marker Axle Name Role Phone Hemalatha Shanks MD Unavailable Julius Galvin MD Primary Care Provider [phone] Sherry Jesus DO Unavailable [phone] Allergies Active Allergy Reactions Criticality Noted Date [...] 04/09/2017 Assessment & Plan (04/09/2017 12:56 PM BUTTER PRODUCTION SUPERVISOR): Had rotator cuff surgery in 2008. Most painful joint today. Interested in going back to ortho. Gave name for Dr. Dykes. Knee pain 03/01/2017 Dermatitis 12/21/2016 Assessment & Plan (07/09/2017 11:51 AM BUTTER PRODUCTION SUPERVISOR): Dermatitis to bilateral cheeks, sparing nasolabial folds. [...] 10/31/2016 Assessment & Plan (07/09/2017 12:14 PM BUTTER PRODUCTION SUPERVISOR): Also likely source of pain. Discussed proper self-care, such as exercise and getting enough sleep to help manage symptoms. Will continue current regimen and f/u w/ pain management Assessment & Plan (04/09/2017 10:40 AM BUTTER PRODUCTION SUPERVISOR): Continue current regimen and f/u with pain [...] 09/2017. Assessment & Plan (07/09/2017 11:37 AM BUTTER PRODUCTION SUPERVISOR): Neg quantiferon 05/23 Assessment & Plan (04/09/2017 10:40 AM BUTTER PRODUCTION SUPERVISOR): Neg quantiferon 04/21 Assessment & Plan (01/22/2017 [...] Shanks. Assessment & Plan (07/09/2017 12:05 PM BUTTER PRODUCTION SUPERVISOR): Patient disease activity is high on leflunomide [...] PA-C Assessment & Plan (04/09/2017 12:55 PM BUTTER PRODUCTION SUPERVISOR): cdai = 31 Her ultrasound done on [...] Department Care Team Description 07/08/2024 6:15 PM BUTTER PRODUCTION SUPERVISOR - 07/08/2024 11:59 PM BUTTER PRODUCTION SUPERVISOR Hospital Encounter [facility] ([facility]) [address] [place] [address] Discharge Disposition: Discharge to home or self care 07/03/2024 12:05 AM BUTTER PRODUCTION SUPERVISOR - 07/03/2024 11:59 PM BUTTER PRODUCTION SUPERVISOR Hospital Encounter [facility] ([facility]) [address] [place] [address] Discharge Disposition: Discharge to home or self care 07/03/2024 - 07/03/2024 11:59 PM BUTTER PRODUCTION SUPERVISOR Hospital Encounter [facility] ([facility]) [address] [place] [address] Discharge Disposition: Discharge to home or self care 07/03/2024 Telephone [facility] ([facility]) [address] [place] [address] Elin Valenzuela RN 07/03/[address] [address] Stacey Knapp RN 07/03/[address] [address] Nahomy Abdul, JAYNE breast biopsy 05/09/2024 2:30 PM BUTTER PRODUCTION SUPERVISOR Office Visit [facility] Dermatology [address] [place] [address] [address] [place] [address] Minerva Fleming MD History of nonmelanoma skin [...] on file Legal Sex Female 10:21 PM BUTTER PRODUCTION SUPERVISOR Gender Identity Not on file Sexual Orientation [...] cm (5' 1 ) 06/08/2017 11:26 AM BUTTER PRODUCTION SUPERVISOR Body Mass Index 34.96 06/08/2017 11:26 AM BUTTER PRODUCTION SUPERVISOR Plan of Treatment Health Maintenance Due Date [...] DIAGNOSTIC OUTSIDE CONSULT Routine 07/08/2024 6:15 PM BUTTER PRODUCTION SUPERVISOR BREAST IMAGING MG DIAGNOSTIC OUTSIDE REFERENCE Routine 07/03/2024 12:05 AM BUTTER PRODUCTION SUPERVISOR BREAST IMAGING US OUTSIDE REFERENCE Routine 07/03/2024 12:00 AM BUTTER PRODUCTION SUPERVISOR HEPATITIS PANEL, ACUTE Routine 05/29/2016 3:22 PM BUTTER PRODUCTION SUPERVISOR from Last 3 Months or Most Recently Relevant to Health Maintenance Results * Breast Imaging DX Outside Consult (07/08/2024 6:15 PM BUTTER PRODUCTION SUPERVISOR) Anatomical Region Laterality Modality Breast N/A Mammography 07/09/2024 9:40 AM BUTTER PRODUCTION SUPERVISOR Impressions 07/09/2024 12:22 PM BUTTER PRODUCTION SUPERVISOR Subareolar LEFT breast focal asymmetry with possible [...] images may or may not represent the [place] source data set and thus may contain changes which may lower the sensitivity of the second opinion interpretation. Dictated by: Andrea Yañez M.D. The radiology attending physician has personally reviewed this study, and had reviewed and/or edited this written report and agrees with it. Electronically signed by: Prasanna Beltran MD Narrative 07/09/2024 12:22 PM BUTTER PRODUCTION SUPERVISOR EXAMINATION: REVIEW AND INTERPRETATION OF OUTSIDE IMAGING FACILITY PERFORMING OUTSIDE IMAGING: [facility] EXAM(S) REVIEWED: 1. LEFT UNILATERAL DIAGNOSTIC [...] OF OUTSIDE IMAGING FACILITY PERFORMING OUTSIDE IMAGING: [facility] EXAM(S) REVIEWED: 1. LEFT UNILATERAL DIAGNOSTIC [...] images may or may not represent the [place] source data set and thus may contain [...] Imaging Diagnostic Outside Reference (07/03/2024 12:05 AM BUTTER PRODUCTION SUPERVISOR) Impressions RAD_MAMMO_[facility] - 07/08/2024 5:58 PM BUTTER PRODUCTION SUPERVISOR These images are for Reference purposes only and have not been reviewed by [facility] Radiology. There will be no report generated by a [facility] Radiologist. Narrative RAD_MAMMO_[facility] - 07/08/2024 5:58 PM BUTTER PRODUCTION SUPERVISOR EXAMINATION: Images For Reference Purposes Only us Provider Transcribed Order IMG MAMMO PROCEDURES Final Result Performing Organization Address [facility] Co de Phone Number RAD_MAMMO[facility] * Breast Imaging US Outside Reference (07/03/2024 12:00 AM BUTTER PRODUCTION SUPERVISOR) Impressions [facility]MO[facility] - 07/08/2024 5:58 PM BUTTER PRODUCTION SUPERVISOR These images are for Reference purposes only and have not been reviewed by [facility] Radiology. There will be no report generated by a [facility] Radiologist. Narrative RAD_MAMMO[facility] - 07/08/2024 5:58 PM BUTTER PRODUCTION SUPERVISOR EXAMINATION: Images For Reference Purposes Only us Provider Transcribed Order IMG MAMMO PROCEDURES Final Result Performing Organization Address City/[facility] Co de Phone Number RAD_MAMMO[facility] * Hepatitis panel, acute (05/29/2016 3:22 PM BUTTER PRODUCTION SUPERVISOR) Hep A IgM NON-REACT PATY NON-REACT PATY [facility] H[facility]ORICAL RESULTS Comment: Test performed at [facility] [place] [address] [facility] [place] [address] Director: GET ARROYO DO,MPH 05/29/2016 3:22 PM BUTTER PRODUCTION SUPERVISOR Winston Grewal III, MD LAB MICROBIOLOGY - GENERAL ORDERABLES Final Result [facility]ORICAL RESULTS from Last 3 Months or Most Recently Relevant to Health Maintenance Insurance MEDICARE [facility] MEDICARE [employer] [place] [employer] [facility] Care Teams Burrer Marker Axle Relationship Specialty Start Date End Date Julius Galvin MD [address] [place] [address] [place] [address] PCP - General Family Medicine 12/05/22 [place] [address] [facility] [address] [place] [address] Rheumatology 01/19/17 Sherry Jesus DO [address] [place] [address] DR VELASCO [address] [place] [address] Family Medicine 07/03/24
--- OUTSIDE RECORDS SUMMARY | 2024-07-17 19:32 | XMS_ITS | Encounter Summary ---
Author Organization [email or web address] Address [address] [place] [address] Care Team Providers Care Ballistics Expert Forensic Name Role Phone Apolinar Young MD Primary Care Provider [phone] Encounter Details Date Type Department Care Team (Late st Contact Info) Description 08/20/2006 Outpatient Historical [facility] Luanne Damon MD [address] [facility] [address] [place] [address] Esophageal Reflux (Primary Dx) Social History Tobacco Use Types Packs/Day Years Used Date Smoking Tobacco: Never Assessed Comments Unknown Sex and Gender Information Value Date Recorded Sex Assigned at Not on file Legal Sex Female 3:22 AM HELPDESK MANAGER Gender Identity Not on file Sexual Orientation Not on file documented as of this encounter Plan of Treatment Not on file documented as of this encounter Visit Diagnoses Diagnosis Esophageal reflux- Primary documented in this encounter Care Teams Ballistics Expert Forensic Relationship Specialty Start Date End Date Apolinar Young MD [address] [address] PCP - General 08/20/06 documented as of this encounter
--- OUTSIDE RECORDS SUMMARY | 2024-07-17 19:32 | XMS_ITS | Encounter Summary ---
Author Organization [facility] Healthcare Address [address] [place] [address] Care Team Providers Care Auditor In Charge Name Role Phone Peace Young MD Primary Care Provider [phone] Hemalatha Shanks MD Unavailable Reason for Visit * Diagnostic Imaging (Routine) - Pending Review Specialty Diagnoses / Procedures Referred By Contac t Referred To Contact Procedures Breast Imaging Screening Outside Reference Transcribed Order, Provider Referral ID Status Reason Start Date Expiration Date V isits Requested Visits Authorized [id number] Pending Review 07/08/2024 08/07/2025 1 1 Encounter Details Date Type Department Care Team (Late st Contact Info) Description 11/30/2018 Hospital Encounter [facility] [address] [place] [address] Social History Tobacco Use Types Packs/Day Years Used Date Smoking Tobacco: Never Alcohol Use Standard Drinks/Week Comments Yes 0 (1 standard drink = 0.6 oz pur e alcohol) Comments Unknown Sex and Gender Information Value Date Recorded Sex Assigned at Not on file Legal Sex Female 10:21 PM ENTRY LEVEL ELECTRICIAN Gender Identity Not on file Sexual Orientation [...] CDT) Impressions RAD_MAMMO[facility] - 07/08/2024 5:58 PM ENTRY LEVEL ELECTRICIAN These images are for Reference purposes only and have not been reviewed by [facility] Radiology. There will be no report generated by a [facility] Radiologist. Narrative RAD_MAMMO_[facility] - 07/08/2024 5:58 PM ENTRY LEVEL ELECTRICIAN EXAMINATION: Images For Reference Purposes Only us Provider Transcribed Order IMG MAMMO PROCEDURES Final Result [facility]MO[facility] documented in this encounter Visit Diagnoses Not on filedocumented in this encounter Care Teams Auditor In Charge Relationship Specialty Start Date End Date Peace Young MD [address] [place] [address] PCP - General 01/16/17 12/04/22 [place] [address] [facility] [address] [place] [address] Rheumatology 01/19/17 documented as of this encounter
--- OUTSIDE RECORDS SUMMARY | 2024-07-17 19:32 | XMS_ITS | Clinical Summary ---
Author Organization [facility] Address [address] [place] [address] Phone Care Team Providers Care Interior Horticulturist Name Role Phone Apolinar Young MD Primary Care Provider [phone] Allergies Active Allergy Reactions Criticality Noted Date [...] on file Legal Sex Female 3:22 AM TOOLROOM CHECKER Gender Identity Not on file Sexual Orientation [...] MEDICARE PART A AND B Care Teams Interior Horticulturist Relationship Specialty Start Date End Date Apolinar Young MD [address] [place] [address] PCP - General 08/20/06
--- OUTSIDE RECORDS SUMMARY | 2024-07-17 19:32 | XMS_ITS | Continuity of Care Document ---
Author Organization [facility] Address [address] [place] [address] Phone Care Team Providers Care Eap Specialist Name Role Phone Hesham Vernon MD Unavailable Unavailable Procedures Procedure Date Office/outpatient visit,[facility] 2009 X-ray exam of shoulder, complete 2009 Advance Directives Directive Yes / No Effective Date File Name No Information Encounters Encounter Description Practice Location Reason(s) For Visit Diagnoses Date Provider Providers Copied on Encounter Office/outpat ient visit,[facility], [facility], [address] [facility] [facility] [address], [place], [id number], tel:[phone] [facility] No Information [address] Saulo Dahl. [address] [place] [address] [address], [place], [place], [id number] , . tel:[phone] Referring Provider: Jonathan Kaufman, [address] [facility] [address], [place], [address]. tel:[phone] Family History Family Member Type Diagnosis Age At Onset No Information Payers Payer name Insurance type Covered democrat ID Authoriza tion(s) Renee Blue [employer] [place] BL [id number] Social History Type Description Quantity Date Captured [...]
--- OUTSIDE RECORDS SUMMARY | 2024-07-17 19:32 | XMS_ITS | Encounter Summary ---
Author Organization [facility] Healthcare Address [address] [place] [address] Care Team Providers Care Product Director Name Role Phone Peace Young MD Primary Care Provider [phone] Reason for Visit * Diagnostic Imaging (Routine) - Pending Review Specialty Diagnoses / Procedures Referred By Contac t Referred To Contact Procedures Breast Imaging Screening Outside Reference Transcribed Order, Provider Referral ID Status Reason Start Date Expiration Date V isits Requested Visits Authorized [id number] Pending Review 07/08/2024 08/07/2025 1 1 Encounter Details Date Type Department Care Team (Late st Contact Info) Description 07/11/2014 Hospital Encounter [facility] [address] [place] [address] Social History Tobacco Use Types Packs/Day Years Used Date Smoking Tobacco: Never Alcohol Use Standard Drinks/Week Comments Yes 0 (1 standard drink = 0.6 oz pur e alcohol) Comments Unknown Sex and Gender Information Value Date Recorded Sex Assigned at Not on file Legal Sex Female 10:21 PM TOWEL INSPECTOR Gender Identity Not on file Sexual Orientation Not on file documented as of this encounter Plan of Treatment Not on file documented as of this encounter Procedures Procedure Name Priority Date/Time Associated Diagnosis Comments BREAST IMAGING MG SCREENING OUTSIDE REFERENCE Routine 07/11/2014 12:00 AM TOWEL INSPECTOR documented in this encounter Results * Breast Imaging Screening Outside Reference (07/11/2014 12:00 AM TOWEL INSPECTOR) Impressions RAD_MAMMO_[facility] - 07/08/2024 5:58 PM TOWEL INSPECTOR These images are for Reference purposes only and have not been reviewed by [facility] Radiology. There will be no report generated by a [facility] Radiologist. Narrative RAD_MAMMO_[facility] - 07/08/2024 5:58 PM TOWEL INSPECTOR EXAMINATION: Images For Reference Purposes Only us Provider Transcribed Order IMG MAMMO PROCEDURES Final Result [facility] documented in this encounter Visit Diagnoses Not on filedocumented in this encounter Care Teams Product Director Relationship Specialty Start Date End Date Peace Young MD [address] [place] [address] PCP - General 12/06/09 08/03/16 documented as of this encounter
--- OUTSIDE RECORDS SUMMARY | 2024-07-17 19:32 | XMS_ITS | Encounter Summary ---
Author Organization [facility] Healthcare Address [address] [place] [address] Care Team Providers Care Sap Ppm Consultant Name Role Phone Peace Young MD Primary Care Provider [phone] Reason for Visit * Diagnostic Imaging (Routine) - Pending Review Specialty Diagnoses / Procedures Referred By Contac t Referred To Contact Procedures Breast Imaging Screening Outside Reference Transcribed Order, Provider Referral ID Status Reason Start Date Expiration Date V isits Requested Visits Authorized [id number] Pending Review 07/08/2024 08/07/2025 1 1 Encounter Details Date Type Department Care Team (Late st Contact Info) Description 11/10/2011 Hospital Encounter [facility] [address] [place] [address] Social History Tobacco Use Types Packs/Day Years Used Date Smoking Tobacco: Never Alcohol Use Standard Drinks/Week Comments Yes 0 (1 standard drink = 0.6 oz pur e alcohol) Comments Unknown Sex and Gender Information Value Date Recorded Sex Assigned at Not on file Legal Sex Female 10:21 PM DENTAL CHAIRSIDE ASSISTANT Gender Identity Not on file Sexual Orientation [...] CDT) Impressions RAD_MAMMO_[facility] - 07/08/2024 5:58 PM DENTAL CHAIRSIDE ASSISTANT These images are for Reference purposes only and have not been reviewed by [facility] Radiology. There will be no report generated by a [facility] Radiologist. Narrative RAD_MAMMO_[facility] - 07/08/2024 5:58 PM DENTAL CHAIRSIDE ASSISTANT EXAMINATION: Images For Reference Purposes Only us Provider Transcribed Order IMG MAMMO PROCEDURES Final Result [facility]_MAMMO[facility] documented in this encounter Visit Diagnoses Not on filedocumented in this encounter Care Teams Sap Ppm Consultant Relationship Specialty Start Date End Date Peace Young MD [address] [place] [address] PCP - General 12/06/09 08/03/16 documented as of this encounter
[2024-07-17 19:37] LABS: Influenza A QL RT-PCR Negative (Negative); Influenza B QL RT-PCR Negative (Negative); RSV RNA, RT-PCR Negative (Negative); SARS-CoV-2 RNA PCR Negative (Negative)
[2024-07-17] MEDS: SODIUM CHLORIDE 0.9% IV 1,000 ML 999 ML IV CONT (21:39)
[2024-07-17] MEDS: SCOPOLAMINE 1 MG PATCH 1 PATCH TRANSDERM (21:39)
[2024-07-17] MEDS: MECLIZINE HCL 25 MG TABLET PO (21:39)
[2024-07-17] MEDS: METOCLOPRAMIDE HCL INJ 10 MG/2 ML VIAL IV PUSH (22:54)
--- NOTE | 2024-07-17 23:51 | PC.NURSE ---
Assumed care of patient after receiving report from JAYNE Ruiz @ [phone].
--- NOTE | 2024-07-18 00:16 | PC.NURSE ---
Patient refused straight cath to obtain urine sample to multiple staff members.
[2024-07-18 00:40] VITALS: BP 152/91; PULSE 103; RESP 18; O2SAT 98
== END 2024-07-18 01:05 | disposition home or self-care (01) ==
PROVIDERS: Physician Assistant; Emergency Provider Emergency Medicine; PCP Family Medicine
DX: R42 Dizziness and giddiness (principal); Z20.822 Contact with and (suspected) exposure to COVID-19; I10 Essential (primary) hypertension; E78.2 Mixed hyperlipidemia; N32.81 Overactive bladder; M79.7 Fibromyalgia; M06.9 Rheumatoid arthritis, unspecified; M19.90 Unspecified osteoarthritis, unspecified site; G62.9 Polyneuropathy, unspecified; K21.9 Gastro-esophageal reflux disease without esophagitis; F32.A Depression, unspecified; F41.9 Anxiety disorder, unspecified; Z86.73 Personal history of transient ischemic attack (TIA), and cerebral infarction without residual deficits; Z85.820 Personal history of malignant melanoma of skin; Z86.16 Personal history of COVID-19; Z85.3 Personal history of malignant neoplasm of breast; Z96.652 Presence of left artificial knee joint; Z90.11 Acquired absence of right breast and nipple; Z79.899 Other long term (current) drug therapy
CPT/HCPCS: 36415; 70450; 71045; 74177; 80053; 83735; 85025; 87637; 93005; 96361; 96374; 99284; A9270; J2765; J7030; Q9967

== ENCOUNTER 2024-10-07 11:37 | Outpatient (CLI) | payer MEDICARE, OTHER, SELFPAY ==
--- OUTSIDE RECORDS SUMMARY | 2024-10-07 11:43 | XMS_ITS | Encounter Summary ---
Author Organization [facility] Healthcare Address [address] [place] [address] Care Team Providers Care Supervisor Twisting Department Name Role Phone Peace Young MD Primary Care Provider [phone] Reason for Visit * Diagnostic Imaging (Routine) - Pending Review Specialty Diagnoses / Procedures Referred By Contac t Referred To Contact Procedures Breast Imaging Screening Outside Reference Transcribed Order, Provider Referral ID Status Reason Start Date Expiration Date V isits Requested Visits Authorized [id number] Pending Review 07/08/2024 08/07/2025 1 1 Encounter Details Date Type Department Care Team (Late st Contact Info) Description 11/10/2011 Hospital Encounter [facility] [address] [place] [address] Social History Tobacco Use Types Packs/Day Years Used Date Smoking Tobacco: Never Alcohol Use Standard Drinks/Week Comments Yes 0 (1 standard drink = 0.6 oz pur e alcohol) Comments Unknown Sex and Gender Information Value Date Recorded Sex Assigned at Not on file Legal Sex Female 10:21 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 There will be no report generated by a [facility] Radiologist. Narrative RAD_MAMMO_[facility] - 07/08/2024 5:58 PM MOLD WORKER EXAMINATION: Images For Reference Purposes Only us Provider Transcribed Order IMG MAMMO PROCEDURES Final Result [facility]_MAMMO[facility] documented in this encounter Visit Diagnoses Not on filedocumented in this encounter Care Teams Supervisor Twisting Department Relationship Specialty Start Date End Date Peace Young MD [address] [place] [address] PCP - General 12/06/09 08/03/16 documented as of this encounter
--- OUTSIDE RECORDS SUMMARY | 2024-10-07 11:43 | XMS_ITS | Data Portability ---
Author Organization [place] [facility],, Liliya vivar Address [address] [place] [address] Assessment No assessment recorded. Plan of Treatment Reminders Order Date Submit Date Provider Last Modified By Organization Details Last Modified Time Details Appointments None recorded. Lab allergy test, skin 021 021 [place] [facility], [address], [address], [place], [address], 17:33:50 Referral None recorded. Procedures None recorded. Surgeries None recorded. Imaging None recorded. Medication Orders None recorded. Patient TargetsNo targets recorded. Patient Instructions Encounter Date Encounter Id Patient Instructions Last Modified By Organization Details Last Modified Time 12/23/2020 [id number] drug allergy: care instructions [email or web address] Not available [...] Name and Address Organization Details Recorded Time 70734 cephaloth in sodium medicatio n Not available Not available Not available 12/23/2020 9860 RxNorm maria dolores lambert [place] [facility], 12:20:57 Medications [...] Address Organization Details Last Updated DateTime 1 65753.4 4 g 58 /min 97 % 97 % 18 /min 98.1 [degF] 33.6 kg/m2 154.94 cm 130 mm[Hg] 80 mm[Hg] maria dloores [place] [facility], 1 12:20:09 Social History Question Answer Notes LastModified by Organizat ion Details LastModified Time Tobacco Smoking Status Never Smoker [facility], 12/23/2020 12:21:14 What Was The Date Of Your Most Recent Tobacco Screening? 12/23/2020 Information not available 12/23/2020 Sex: Unknown Functional Status Question Answer Note LastModified by Organizat ion Details LastModified Time Do you use any illicit or recreational drugs? No Information not available 12/23/2020 Do you or have you ever used any other forms of tobacco or nicotine? No Information not available 12/23/2020 What is your level of alcohol consumption? Occasional Information not available 12/23/2020 Mental Status None recorded. Family History Nothing Reported. Medical History No medical history recorded. Gynecological HistoryNo gynecological history recorded. Obstetrics History GPAL:G 0 P 0 0 0 0 Past Encounters Encounter ID Performer Location Encounter Start Date Encounter Closed Date Diagnosis/Indication Diagnosis SNOMED-CT Code Diagnosis ICD10 Code Diagnosis Note [id number] Everardo perla MD OFFICE [address] [place] [phone] 12/23/2020 11:18:25 12/23/2020 15:15:48 Allergy to drug 534765833 Z88.9 Patient was skin tested to Actemra. Unfortunat erin she developed a headache during the testing [...] ID Guarantor Name 12/23/2020 2 [employer] [place] (MEDICARE SUPPLEMENT) Oneal Echeverria [id number] Oneal Echeverria 12/23/2020 1 MEDICARE [place]: [place] Oneal Echeverria [id number] Oneal Echeverria Notes Date Note Type [...] Khan MD [address], [place], [address], [facility], 12/23/2020 15:05:00 OBGyn Episode No OBEpisode recorded.
--- OUTSIDE RECORDS SUMMARY | 2024-10-07 11:43 | XMS_ITS | Clinical Summary ---
Author Organization [facility] Address [address] [place] [address] Care Team Providers Care Political Science Research Assistant Name Role Phone Hemalatha Shanks MD Unavailable Julius Galvin MD Primary Care Provider [phone] Sehrry Jesus DO Unavailable [phone] Allergies Active Allergy Reactions Criticality Noted Date [...] 04/09/2017 Assessment & Plan (04/09/2017 12:56 PM JEWELRY SALES COORDINATOR): Had rotator cuff surgery in 2008. Most painful joint today. Interested in going back to ortho. Gave name for Dr. Dykes. Knee pain 03/01/2017 Dermatitis 12/21/2016 Assessment & Plan (07/09/2017 11:51 AM JEWELRY SALES COORDINATOR): Dermatitis to bilateral cheeks, sparing nasolabial folds. [...] 10/31/2016 Assessment & Plan (07/09/2017 12:14 PM JEWELRY SALES COORDINATOR): Also likely source of pain. Discussed proper self-care, such as exercise and getting enough sleep to help manage symptoms. Will continue current regimen and f/u w/ pain management Assessment & Plan (04/09/2017 10:40 AM JEWELRY SALES COORDINATOR): Continue current regimen and f/u with pain [...] 09/2017. Assessment & Plan (07/09/2017 11:37 AM JEWELRY SALES COORDINATOR): Neg quantiferon 05/23 Assessment & Plan (04/09/2017 10:40 AM JEWELRY SALES COORDINATOR): Neg quantiferon 04/21 Assessment & Plan (01/22/2017 [...] Shanks. Assessment & Plan (07/09/2017 12:05 PM JEWELRY SALES COORDINATOR): Patient disease activity is high on leflunomide [...] PA-C Assessment & Plan (04/09/2017 12:55 PM JEWELRY SALES COORDINATOR): cdai = 32 Her ultrasound done on [...] Encounters Date Type Department Care Team Description 07/30/2024 1:30 PM CDT - 07/30/2024 11:59 PM CDT Hospital Encounter [facility] ([facility]) [address] [place] [address] Abnormal finding on breast imaging Discharge Disposition: Discharge to home or self care 07/08/2024 6:15 PM JEWELRY SALES COORDINATOR - 07/08/2024 11:59 PM JEWELRY SALES COORDINATOR Hospital Encounter [facility] ([facility]) [address] [place] [address] Discharge Disposition: Discharge to home or self care from Last 3 Months Surgical History Surgery [...] on file Legal Sex Female 10:21 PM JEWELRY SALES COORDINATOR Gender Identity Not on file Sexual Orientation [...] 3:28 PM CDT Height 154.9 cm (5' 1) 06/08/2017 11:26 AM JEWELRY SALES COORDINATOR Body Mass Index 34.96 06/08/2017 11:26 AM JEWELRY SALES COORDINATOR Plan of Treatment Health Maintenance Due Date Last Done Comments Breast Cancer Screening-Mammogram 1951 Colon Cancer Screening-Colonoscopy 1950 Depression Screening 1951 Fall Risk Assessment 1950 Osteoporosis Screening-Bone Density Scan 1951 Hepatitis B Screening 1969 Zoster Vaccine (1 of 2) 2001 Well Visit 65+ 2016 Pneumococcal vaccine 65+ (2 of 2 - PCV) 06/18/2018 06/18/2017 Influenza Vaccine (Season Ended) 2025 01/17/20 19, 01/26/2018 DTaP/Tdap/Td Vaccine (2 - Td or Tdap) 12/19/2028 12/19/2018 Hepatitis C Screening Completed 05/29/2016 , 05/29/2016, 05/29/2016, Additional history exists Procedures Procedure Name Priority Date/Time Associated Diagnosis Comments US BREAST LEFT LIMITED Schedule Routine, Read Routine (OP Routine) 07/30/2024 2:15 PM CDT Abnormal finding on breast imaging BREAST IMAGING MG DIAGNOSTIC OUTSIDE CONSULT Routine 07/08/2024 6:15 PM JEWELRY SALES COORDINATOR HEPATITIS PANEL, ACUTE Routine 05/29/2016 3:22 PM JEWELRY SALES COORDINATOR from Last 3 Months or Most Recently Relevant to Health Maintenance Results * US Breast Left Limited (07/30/2024 2:15 PM CDT) Anatomical Region Laterality Modality Breast Left Ultrasound 07/30/2024 2:55 PM CDT Impressions 07/30/2024 3:33 PM CDT No sonographic evidence of malignancy within the LEFT breast. OVERALL FINAL ASSESSMENT: BI-RADS Category 2: Benign. RECOMMENDATION: Annual screening mammography is recommended. Dr. Mendoza discussed the above findings and recommendations with the patient. Dictated by: Kendall Mendoza M.D. The radiology attending physician has personally reviewed this study, and had reviewed and/or edited this written report and agrees with it. Electronically signed by: Stacey Toscano M.D. Narrative 07/30/2024 3:33 PM CDT EXAMINATION: LEFT BREAST ULTRASOUND HISTORY: 74-year-old woman with prior RIGHT breast malignancy of unknown type, status post mastectomy in 1993. She is also status post LEFT breast reduction. She is presenting for further evaluation of a focal asymmetry and subareolar mass versus cyst identified on outside hospital mammogram and ultrasound. COMPARISON: Outside hospital ultrasound and mammogram from 07/03/2024. TECHNIQUE: Directed ultrasound evaluation of the LEFT breast was performed. ULTRASOUND FINDINGS: Targeted ultrasound was performed over the LEFT breast at 6:00. There is no suspicious mass, architectural distortion, or calcification within the LEFT breast suggestive of malignancy. There are postoperative changes of LEFT breast conservation therapy. The outside hospital mammogram images were again reviewed and the LEFT breast focal asymmetry is consistent with postoperative changes from her prior LEFT breast reduction. Procedure Note Stacey Toscano MD - 07/30/2024 EXAMINATION: LEFT BREAST ULTRASOUND HISTORY: 74-year-old woman with prior RIGHT breast malignancy of unknown type, status post mastectomy in 1993. She is also status post LEFT breast reduction. She is presenting for further evaluation of a focal asymmetry and subareolar mass versus cyst identified on outside hospital mammogram and ultrasound. COMPARISON: Outside hospital ultrasound and mammogram from 07/03/2024. TECHNIQUE: Directed ultrasound evaluation of the LEFT breast was performed. ULTRASOUND FINDINGS: Targeted ultrasound was performed over the LEFT breast at 6:00. There is no suspicious mass, architectural distortion, or calcification within the LEFT breast suggestive of malignancy. There are postoperative changes of LEFT breast conservation therapy. The outside hospital mammogram images were again reviewed and the LEFT breast focal asymmetry is consistent with postoperative changes from her prior LEFT breast reduction. IMPRESSION: No sonographic evidence of malignancy within the LEFT breast. OVERALL FINAL ASSESSMENT: BI-RADS Category 2: Benign. RECOMMENDATION: Annual screening mammography is recommended. Dr. Mendoza discussed the above findings and recommendations with the patient. Dictated by: Kendall Mendoza M.D. The radiology attending physician has personally reviewed this study, and had reviewed and/or edited this written report and agrees with it. Electronically signed by: Stacey Toscano M.D. Sherry Jesus [facility] MAMMO PROCEDURES Final Result * Breast Imaging DX Outside Consult (07/08/2024 6:15 PM JEWELRY SALES COORDINATOR) Anatomical Region Laterality Modality Breast N/A Mammography 07/09/2024 9:40 AM JEWELRY SALES COORDINATOR Impressions 07/09/2024 12:22 PM JEWELRY SALES COORDINATOR Subareolar LEFT breast focal asymmetry with possible [...] images may or may not represent the ambler source data set and thus may contain changes which may lower the sensitivity of the second opinion interpretation. Dictated by: Andrea Yañez M.D. The radiology attending physician has personally reviewed this study, and had reviewed and/or edited this written report and agrees with it. Electronically signed by: MD Kathryn Burris 07/09/2024 12:22 PM JEWELRY SALES COORDINATOR EXAMINATION: REVIEW AND INTERPRETATION OF OUTSIDE IMAGING FACILITY PERFORMING OUTSIDE IMAGING: [facility] EXAM(S) REVIEWED: 1. LEFT UNILATERAL DIAGNOSTIC [...] OF OUTSIDE IMAGING FACILITY PERFORMING OUTSIDE IMAGING: [facility] EXAM(S) REVIEWED: 1. LEFT UNILATERAL DIAGNOSTIC [...] images may or may not represent the ambler source data set and thus may contain changes which may lower the sensitivity of the second opinion interpretation. Dictated by: Andrea Yañez M.D. The radiology attending physician has personally reviewed this study, and had reviewed and/or edited this written report and agrees with it. Electronically signed by: Prasanna Beltran MD us Sherry Jesus DO IMG MAMMO PROCEDURES Final Result * Hepatitis panel, acute (05/29/2016 3:22 PM JEWELRY SALES COORDINATOR) Hep A IgM NON-REACT PATY NON-REACT PATY [facility] Comment: [facility] [address] [place] [address] Director: GET ARROYO DO,MPH 05/29/2016 3:22 PM JEWELRY SALES COORDINATOR Winston Grewal III, MD LAB MICROBIOLOGY - GENERAL ORDERABLES Final Result [facility]ORICAL RESULTS from Last 3 Months or Most Recently Relevant to Health Maintenance Insurance MEDICARE [facility] [place] [address] MEDICARE [employer] [place] MEDICARE [employer] [place] Care Teams Political Science Research Assistant Relationship Specialty Start Date End Date Julius Galvin MD [address] [place] [address] [place] [address] PCP - General Family Medicine 12/05/[place] [address] [facility] [address] [place] [address] Rheumatology 01/19/17 Sherry Jesus DO [address] [place] [address] DR [address] [place] [address] Family Medicine 07/03/24
--- OUTSIDE RECORDS SUMMARY | 2024-10-07 11:43 | XMS_ITS | Encounter Summary ---
Author Organization [facility] Healthcare Address [address] [place] [address] Care Team Providers Care Director Part Name Role Phone Peace Young MD Primary Care Provider [phone] Hemalatha Shanks MD Unavailable Reason for Visit * Diagnostic Imaging (Routine) - Pending Review Specialty Diagnoses / Procedures Referred By Contac t Referred To Contact Procedures Breast Imaging Screening Outside Reference Transcribed Order, Provider Referral ID Status Reason Start Date Expiration Date V isits Requested Visits Authorized [id number] Pending Review 07/08/2024 08/07/2025 1 1 Encounter Details Date Type Department Care Team (Late st Contact Info) Description 11/30/2018 Hospital Encounter [facility]) [address] [place] [address] Social History Tobacco Use Types Packs/Day Years Used Date Smoking Tobacco: Never Alcohol Use Standard Drinks/Week Comments Yes 0 (1 standard drink = 0.6 oz pur e alcohol) Comments Unknown Sex and Gender Information Value Date Recorded Sex Assigned at Not on file Legal Sex Female 10:21 PM 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 There will be no report generated by a [facility] Radiologist. Narrative [facility]MO[facility] - 07/08/2024 5:58 PM STILL OPERATOR WHISKEY EXAMINATION: Images For Reference Purposes Only us Provider Transcribed Order IMG MAMMO PROCEDURES Final Result [facility] documented in this encounter Visit Diagnoses Not on filedocumented in this encounter Care Teams Director Part Relationship Specialty Start Date End Date Peace Young MD [address] [place] [place] [address] PCP - General 01/16/17 12/04/22 [place] [address] [facility] [address] [place] [address] Rheumatology 01/19/17 documented as of this encounter
--- OUTSIDE RECORDS SUMMARY | 2024-10-07 11:43 | XMS_ITS | Encounter Summary ---
Author Organization [facility] Healthcare Address [address] [place] [address] Care Team Providers Care Wheat And Oats Flake Miller Name Role Phone Peace Young MD Primary Care Provider [phone] Reason for Visit * Diagnostic Imaging (Routine) - Pending Review Specialty Diagnoses / Procedures Referred By Contac t Referred To Contact Procedures Breast Imaging Screening Outside Reference Transcribed Order, Provider Referral ID Status Reason Start Date Expiration Date V isits Requested Visits Authorized [id number] Pending Review 07/08/2024 08/07/2025 1 1 Encounter Details Date Type Department Care Team (Late st Contact Info) Description 07/11/2014 Hospital Encounter [facility] [address] [place] [address] Social History Tobacco Use Types Packs/Day Years Used Date Smoking Tobacco: Never Alcohol Use Standard Drinks/Week Comments Yes 0 (1 standard drink = 0.6 oz pur e alcohol) Comments Unknown Sex and Gender Information Value Date Recorded Sex Assigned at Not on file Legal Sex Female 10:21 PM GERIATRIC CASE MANAGER Gender Identity Not on file Sexual Orientation Not on file documented as of this encounter Plan of Treatment Not on file documented as of this encounter Procedures Procedure Name Priority Date/Time Associated Diagnosis Comments BREAST IMAGING MG SCREENING OUTSIDE REFERENCE Routine 07/11/2014 12:00 AM GERIATRIC CASE MANAGER documented in this encounter Results * Breast Imaging Screening Outside Reference (07/11/2014 12:00 AM GERIATRIC CASE MANAGER) Impressions RAD_MAMMO[facility] - 07/08/2024 5:58 PM GERIATRIC CASE MANAGER These images are for Reference purposes only and have not been reviewed by [facility]. There will be no report generated by a [facility] Radiologist. Narrative [facility]_MAMMO[facility] - 07/08/2024 5:58 PM GERIATRIC CASE MANAGER EXAMINATION: Images For Reference Purposes Only us Provider Transcribed Order IMG MAMMO PROCEDURES Final Result [facility] documented in this encounter Visit Diagnoses Not on filedocumented in this encounter Care Teams Wheat And Oats Flake Miller Relationship Specialty Start Date End Date Peace Young MD [address] [place] [address] PCP - General 12/06/09 08/03/16 documented as of this encounter
--- OUTSIDE RECORDS SUMMARY | 2024-10-07 11:43 | XMS_ITS | Referral Summary ---
Author Organization [facility] Address [address] [place] [address] Care Team Providers Care Cone Marker Name Role Phone Hemalatha Shanks MD Unavailable Julius Galvin MD Primary Care Provider [phone] Sherry Jesus DO Unavailable [phone] Encounters Date Type Department Care Team Description 07/30/2024 1:30 PM CDT - 07/30/2024 11:59 PM CDT Hospital Encounter [facility] ([facility]) [address] [place] [address] Abnormal finding on breast imaging Discharge Disposition: Discharge to home or self care 07/08/2024 6:15 PM DEPENDENCY CASE MANAGER - 07/08/2024 11:59 PM DEPENDENCY CASE MANAGER Hospital Encounter [facility] ([facility]) [address] [place] [address] Discharge Disposition: Discharge to home or self care from Last 3 Months Allergies Active Allergy [...] 04/09/2017 Assessment & Plan (04/09/2017 12:56 PM DEPENDENCY CASE MANAGER): Had rotator cuff surgery in 2008. Most painful joint today. Interested in going back to ortho. Gave name for Dr. Dykes. Knee pain 03/01/2017 Dermatitis 12/21/2016 Assessment & Plan (07/09/2017 11:51 AM DEPENDENCY CASE MANAGER): Dermatitis to bilateral cheeks, sparing nasolabial folds. [...] 10/31/2016 Assessment & Plan (07/09/2017 12:14 PM DEPENDENCY CASE MANAGER): Also likely source of pain. Discussed proper self-care, such as exercise and getting enough sleep to help manage symptoms. Will continue current regimen and f/u w/ pain management Assessment & Plan (04/09/2017 10:40 AM DEPENDENCY CASE MANAGER): Continue current regimen and f/u with pain [...] 09/2017. Assessment & Plan (07/09/2017 11:37 AM DEPENDENCY CASE MANAGER): Neg quantiferon 05/23 Assessment & Plan (04/09/2017 10:40 AM DEPENDENCY CASE MANAGER): Neg quantiferon 04/21 Assessment & Plan (01/22/2017 [...] Shanks. Assessment & Plan (07/09/2017 12:05 PM DEPENDENCY CASE MANAGER): Patient disease activity is high on leflunomide [...] PA-C Assessment & Plan (04/09/2017 12:55 PM DEPENDENCY CASE MANAGER): cdai = 32 Her ultrasound done on [...] on file Legal Sex Female 10:21 PM DEPENDENCY CASE MANAGER Gender Identity Not on file [...] 154.9 cm (5' 1) 06/08/2017 11:26 AM DEPENDENCY CASE MANAGER Body Mass Index 34.96 06/08/2017 11:26 AM DEPENDENCY CASE MANAGER Plan of Treatment Not on file Procedures Procedure Name Priority Date/Time Associated Diagnosis Comments US BREAST LEFT LIMITED Schedule Routine, Read Routine (OP Routine) 07/30/2024 2:15 PM CDT Abnormal finding on breast imaging BREAST IMAGING MG DIAGNOSTIC OUTSIDE CONSULT Routine 07/08/2024 6:15 PM DEPENDENCY CASE MANAGER HEPATITIS PANEL, ACUTE Routine 05/29/2016 3:22 PM DEPENDENCY CASE MANAGER from Last 3 Months or Most Recently [...] it. Electronically signed by: Stacey Toscano M.D. us Sherry Jesus DO IM MAMMO PROCEDURES Final Result * Breast Imaging DX Outside Consult (07/08/2024 6:15 PM DEPENDENCY CASE MANAGER) Anatomical Region Laterality Modality Breast N/A Mammography 07/09/2024 9:40 AM DEPENDENCY CASE MANAGER Impressions 07/09/2024 12:22 PM DEPENDENCY CASE MANAGER Subareolar LEFT breast focal asymmetry with possible [...] images may or may not represent the [place] source data set and thus may contain changes which may lower the sensitivity of the second opinion interpretation. Dictated by: Andrea Leung Ali Yañez, M.D. The radiology attending physician has personally reviewed this study, and had reviewed and/or edited this written report and agrees with it. Electronically signed by: Prasanna Beltran MD Narrative 07/09/2024 12:22 PM DEPENDENCY CASE MANAGER EXAMINATION: REVIEW AND INTERPRETATION OF OUTSIDE IMAGING FACILITY PERFORMING OUTSIDE IMAGING: [facility] EXAM(S) REVIEWED: 1. LEFT UNILATERAL [...] OF OUTSIDE IMAGING FACILITY PERFORMING OUTSIDE IMAGING: [facility] EXAM(S) REVIEWED: 1. LEFT UNILATERAL [...] images may or may not represent the [place] source data set and thus may contain changes which may lower the sensitivity of the second opinion interpretation. Dictated by: Andrea Yañez M.D. The radiology attending physician has personally reviewed this study, and had reviewed and/or edited this written report and agrees with it. Electronically signed by: Prasanna Beltran MD Sherry Jesus DO IMG MAMMO PROCEDURES Final Result * Hepatitis panel, acute (05/29/2016 3:22 PM DEPENDENCY CASE MANAGER) Hep A IgM NON-REACT PATY NON-REACT PATY [facility]OR[facility] RESULTS Comment: [facility] [address] [place] [address] Director: GET ARROYO DO,MPH 05/29/2016 3:22 PM DEPENDENCY CASE MANAGER Winston Grewal III, MD LAB MICROBIOLOGY - GENERAL ORDERABLES Final Result Performing Organization Address City/State/[facility] Co de Phone Number [facility] H[facility]OR[facility] RESULTS from Last 3 Months or Most Recently Relevant to Health Maintenance Insurance MEDICARE [facility] [employer] [place] MEDICARE [employer] [place] MEDICARE [facility] Care Teams Cone Marker Relationship Specialty Start Date End Date Julius Galvin MD [facility] [place] [address] PCP - General Family Medicine 12/05/22 [place] [address] [facility] [address] [place] [address] Rheumatology 01/19/17 Sherry Jesus DO [address] [facility] [address] [place] [address] Family Medicine 07/03/24
--- OUTSIDE RECORDS SUMMARY | 2024-10-07 11:43 | XMS_ITS | Clinical Summary ---
Author Organization [facility] Address [address] [place] [address] Phone Care Team Providers Care Real Estate Office Supervisor Name Role Phone Apolinar Young MD Primary Care Provider [phone] Allergies Active Allergy Reactions Criticality Noted Date [...] on file Legal Sex Female 3:22 AM DANCE PROFESSOR Gender Identity Not on file Sexual Orientation [...] 2:50 PM CDT Height 156.2 cm (5' 1.5) 09/09/2013 2:50 PM CDT Body Mass Index [...] MEDICARE PART A AND B Care Teams Real Estate Office Supervisor Relationship Specialty Start Date End Date Apolinar Young MD [address] [place] [address] PCP - General 08/20/06
--- OUTSIDE RECORDS SUMMARY | 2024-10-07 11:43 | XMS_ITS | Encounter Summary ---
Author Organization [employer] Address [address] [place] [address] Care Team Providers Care Medium Cycle Salesperson Name Role Phone Apolinar Young MD Primary Care Provider [phone] Encounter Details Date Type Department Care Team (Late st Contact Info) Description 08/20/2006 Outpatient Historical [facility] Luanne Damon MD [address] [place] [address] Esophageal Reflux (Primary Dx) Social History Tobacco Use Types Packs/Day Years Used Date Smoking Tobacco: Never Assessed Comments Unknown Sex and Gender Information Value Date Recorded Sex Assigned at Not on file Legal Sex Female 3:22 AM DESIGN VERIFICATION ENGINEER Gender Identity Not on file Sexual Orientation Not on file documented as of this encounter Plan of Treatment Not on file documented as of this encounter Visit Diagnoses Diagnosis Esophageal reflux- Primary documented in this encounter Care Teams Medium Cycle Salesperson Relationship Specialty Start Date End Date Apolinar Young MD [address] [place] [address] PCP - General 08/20/06 documented as of this encounter
--- OUTSIDE RECORDS SUMMARY | 2024-10-07 11:43 | XMS_ITS | Clinical Summary ---
Author Organization [facility] Address [address] [place] [address] Care Team Providers Care Larder Cook Name Role Phone Peace Young MD Primary Care Provider [phone] Source Comments [facility],non-owned Affiliates and Associated Physician Practices is amultiple site organization consisting of ambulatory clinics and hospital sitesin [place], [place], [place] and [place]. This disclosure is being madepursuant to the Care Everywhere program and may not contain all information available regarding this patient. Last updated 18.[facility] Social History Tobacco Use Types Packs/Day Years Used Date Smoking Tobacco: Never Assessed Comments Unknown Sex and Gender Information Value Date Recorded Sex Assigned at Not on file Legal Sex Female 3:52 PM CDT Gender Identity Not on file [...] SCREENING 1950 LIPID TESTING 1950 MAMMOGRAM 1950 HEPATITIS C SCREENING 05/23/1969 DTAP/TDAP/TD VACCINES (1 - Tdap) 1970 PNEUMOCOCCAL VACCINE 50+ (1 of 1 - PCV) 2001 ZOSTER VACCINE (1 of 2) 2001 COVID-19 VACCINE ( - 2023-2 5 season) 2024 DEPRESSION SCREENING 05/07/2024 INFLUENZA VACCINE (Season Ended) 2025 Respiratory Syncytial Virus (RSV) Vaccine Pt: or [...] on patient's age to complete this topic Insurance MEDICARE Care Teams Larder Cook Relationship Specialty Start Date End Date Peace Young MD [address] [place], [place] [id number] PCP - General Family Medicine 02/17/14
--- OUTSIDE RECORDS SUMMARY | 2024-10-07 11:43 | XMS_ITS | Continuity of Care Document ---
Author Organization [facility] Address [address] [place] [address] Phone Care Team Providers Care Sign Fabricator Name Role Phone Hesham Vernon MD Unavailable Unavailable Procedures Procedure Date Office/outpatient visit,[facility] 2009 X-ray exam of shoulder, complete 2009 Advance Directives Directive Yes / No Effective Date File Name No Information Encounters Encounter Description Practice Location Reason(s) For Visit Diagnoses Date Provider Providers Copied on Encounter Office/outpat ient visit,[facility], [facility], [address], [place], [id number], tel:[phone] [facility] No Information 0 Saulo Dahl. [address] [place] [address] [address], [place], [place], [id number] , . tel:[phone] Referring Provider: Jonathan Kaufman, [address], [place], [address]. tel:[phone] Family History Family Member Type Diagnosis Age At Onset No Information Payers Payer name Insurance type Covered democrat ID Authoriza tion(s) Renee Blue [employer] [place] BL [id number] Social History Type Description Quantity Date Captured [...]
[2024-10-07 19:14] LABS: Hematocrit 41.6 % (37.0-47.0); Hemoglobin 13.2 g/dL (12.0-15.0); Mean Corpuscular HGB Conc 31.7 g/dl (32-36); Mean Corpuscular Hemoglobin 30.6 pg (26-34); Mean Corpuscular Volume 96.3 fl (80-100); Mean Platelet Volume 10.2 fl (7.4-10.4); Platelet Count Result 320 k/mm3 (150-375); Red Blood Count 4.32 M/mm3 (4.2-5.4); Red Cell Distribution Width 13.9 % (11.5-14.5); White Blood Count 11.3 K/mm3 (4.5-10.0)
[2024-10-07 22:26] LABS: Alanine Aminotransferase 27 U/L (6-35); Albumin Level 3.6 g/dL (3.5-5.1); Alkaline Phosphatase 139 U/L (38-126); Anion Gap 5 mmol/L (4-12); Aspartate Amino Transferase 51 U/L (14-36); Bilirubin,Total 0.2 mg/dL (0.2-1.3); Blood Urea Nitrogen 16 mg/dL (7-17); Calcium 9.6 mg/dL (8.4-10.2); Carbon Dioxide 33 mmol/L (22-30); Chloride 102 mmol/L (98-107); Cholesterol 172 mg/dL (0-200); Estimated Glomerular Filt Rate > 60; Glucose 91 mg/dL (65-110); HDL Direct 41 mg/dL; Potassium 3.9 mmol/L (3.4-5.0); Sodium 140 mmol/L (137-145); Total Protein 6.6 g/dL (6.3-8.2); Triglycerides 180 mg/dL (<150)
[2024-10-07 22:52] LABS: LDL Cholesterol Direct 86 mg/dL
== END 2024-10-07 11:38 | disposition home or self-care (01) ==
LOC: ANHGOSHLAB 11:39
PROVIDERS: PCP Family Medicine; Visit Provider Family Medicine
DX: R74.8 Abnormal levels of other serum enzymes (principal); Z79.899 Other long term (current) drug therapy; I10 Essential (primary) hypertension; E78.2 Mixed hyperlipidemia; E66.9 Obesity, unspecified; Z68.35 Body mass index [BMI] 35.0-35.9, adult
CPT/HCPCS: 36415; 80053; 80061; 84443; 85027

== ENCOUNTER 2025-02-05 14:30 | Emergency (ER) | payer MEDICARE, OTHER, SELFPAY ==
[2025-02-05 14:44] VITALS: BP 125/57; PULSE 87; RESP 16; TEMP 36.6; O2SAT 98
--- NOTE | 2025-02-05 14:47 | ECG_ITS ---
Test Date: 2025-02-05 15:02:11 Measurements Intervals [place] Rate: 83 P: 0 DC: 177 QRS: 10 QRSD: 98 T: 56 QT: 347 QTc: 408 Interpretive Statements SINUS RHYTHM CONSIDER INFERIOR INFARCT, AGE INDETERMINATE BASELINE ARTIFACT- I, II, III, AVR, AVL, AVF ABNORMAL ECG Compared to ECG 07/17/2024 20:38:28 Sinus arrhythmia no longer present Electronically Signed On 02-05-2025 16:12:55 CDT by Sunny Posey D.O.
--- NOTE | 2025-02-05 15:42 | ED.DIZZY ---
HPI - Dizziness General Chief Complaint: Dizziness Stated Complaint: Vertigo Time Seen by Provider: 02/05/25 15:15 Source: patient and RN notes reviewed Mode of arrival: ambulatory Limitations: no limitations History of Present Illness HPI Narrative: 74-year-old female presents [facility] Care complaining of dizziness for approximately last 5 days. Patient says it comes and goes in worse with certain position changes or when she is lying flat. She Said the episodes only last a few minutes. Patient was seen in the ER approximately 8 months ago for the same thing and had unremarkable workup and imaging and was diagnosed with vertigo. Patient was given meclizine is compelling patches at the time and said it helped improve her symptoms significantly. Patient called her doctor 4 days ago about the dizziness in a prescribe her meclizine again, she states this helped she says she still feeling dizzy and states that scopolamine patches also helped. Patient says the episode is similar to her previous episode however she says symptoms are much milder. Patient says she is able to walk reports feeling unsteady patient denies any falls or injuries. Patient denies any headache, vision changes, double vision, nausea, vomiting, diarrhea, chest pain, abdominal pain, difficulty breathing, shortness of breath, leg swelling, focal weakness, slurred speech, facial droop, confusion, or any other symptoms. Patient is not take any blood thinners. Patient does have a a long health history including but not limited to vascular dementia, cerebrovascular disease with old infarcts, hypertension, allergies, but denies any history of CVA. Patient says she walks with a walker and a cane at times. Related Data Home Medications ?Medication ?Instructions ?Recorded ?Confirmed ?Last Taken ?Type diphenhydramine HCl 25 mg capsule 50 mg PO QHS 05/19/22 10/28/24 Unknown History tramadol 50 mg tablet 100 mg PO QID 05/19/22 10/28/24 Unknown History trazodone 100 mg tablet 100 mg PO QHS PRN 07/31/22 10/28/24 Unknown History lorazepam 0.5 mg tablet 0.5 mg PO QHS PRN 08/23/23 10/28/24 Unknown History acetaminophen 500 mg oral powder 1,000 mg PO QID 07/01/24 10/28/24 Unknown History packet (Tylenol Extra Strength) cholecalciferol (vitamin D3) 50 50 mcg PO DAILY 07/01/24 10/28/24 Unknown History mcg (2,000 unit) capsule docusate sodium 100 mg capsule 100 mg PO BID 07/01/24 10/28/24 Unknown History duloxetine 30 mg capsule,delayed mg PO 07/01/24 10/28/24 Unknown History release fexofenadine 180 mg tablet 180 mg PO DAILY 07/01/24 10/28/24 Unknown History leflunomide 20 mg tablet mg PO 07/01/24 10/28/24 Unknown History Allergies Allergy/AdvReac Type Severity Reaction Status Date / Time cefuroxime Allergy Severe Swelling Verified 02/05/25 15:13 animal dander Allergy Intermediate Itching Verified 02/05/25 15:13 cat dander Allergy Intermediate sneezing Verified 02/05/25 15:13 latex Allergy Mild Itching Verified 02/05/25 15:13 mold Allergy Mild sneezing Verified 02/05/25 15:13 erythromycin base AdvReac Mild Nausea Verified 02/05/25 15:13 Review of Systems Review of Systems: CONSTITUTIONAL: Denies fever, chills, or sweats. EYES: Denies visual changes, diplopia, redness, or discharge. ENT: Denies rhinorrhea, congestion, sore throat, or otalgia. CARDIOVASCULAR: Denies chest pain, palpitations, lightheadedness, or edema. Positive for dizziness. RESPIRATORY: Denies cough, wheezing, or dyspnea. GASTROINTESTINAL: Denies abdominal pain, nausea, vomiting, or diarrhea. GENITOURINARY: Denies dysuria or hematuria. SKIN: Denies rash or itching. MUSCULOSKELETAL: Denies back pain, joint pain, or myalgia. NEUROLOGIC: Denies headache, numbness, focal weakness, tingling, loss of consciousness, seizures, confusion, facial droop, slurred speech, confusion, or weakness. PSYCHIATRIC: Denies anxiety or depression. All other systems reviewed are negative, except as documented in HPI. [facility] Past Medical History Medical History History of breast cancer Peripheral neuropathy Cerebral vascular disease COVID-19 (~05/2021) Anxiety and depression Ankylosing spondylitis Chronic back pain On senior living drug therapy GERD (gastroesophageal reflux disease) Obesity Hyperactivity of bladder Rheumatoid arthritis Essential (primary) hypertension Fibromyalgia History of malignant melanoma History of stroke Mixed hyperlipidemia Unspecified osteoarthritis, unspecified site Acute low back pain Surgical History Surgical History History of total left knee replacement (11/22/21) History of bladder surgery History of right mastectomy breast reconstructive surgeries H/O repair of right rotator cuff Family History Family History Mother Cerebrovascular accident Hypertension Father Family history of chronic obstructive pulmonary disease Family history of lung cancer Hypertension Family history of emphysema Sibling Hypertension Other Depression Family history of arthritis Family history of malignant neoplasm Social History Social History Social History: The patient is and lives with her son. 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 She is a lifelong nonsmoker. She does not use any alcohol marijuana or illicit drugs. Her son is the durable power senior attorney for healthcare. Code status full code Smoking status: Never smoker Second hand tobacco smoke exposure: No Alcohol intake: never Substance use: never Substance use type: does not use Lack of Transportation: No Lack of Food: Never True Current Housing: I Have Housing Concerned About Future Housing: No Difficulty Paying Gas/Electric Bills: No Difficulty Paying for Meds: No Currently Unemployed: No Education: Bachelor's Degree Difficulty w/ Childcare or Family Care: No Living arrangements: with family Occupation/Education: retired Gender identity (if verbalized by the patient): Female Sexual Orientation (if Verbalized by the Patient): Straight or Heterosexual Spiritual care concerns: No Agree to blood products: Yes Comments At the time of my signature, I reviewed and agree with the nursing past medical, surgical, social, and family history. There is no relevant family history pertinent to the patient complaint. Exam Narrative: GENERAL: This is a well-nourished, well-developed adult, in no apparent distress. They are non ill-appearing, nontoxic appearing. Patient is seen wheelchair. HEAD: normocephalic, atraumatic. EYES: Sclera clear/white. Conjunctiva normal. Vision is grossly intact. Extraocular movements intact. Pupils PERRLA. No nystagmus. EARS: External ears normal, auditory canals clear and without drainage, TMs normal without perforation. Hearing grossly intact. NOSE: External nose normal with no obvious nasal discharge, nasal turbinates without redness, no rhinorrhea. THROAT: Mucous membranes moist, posterior pharynx clear, without erythema or swelling. Uvula midline. NECK: Neck supple, non-tender without lymphadenopathy, masses or thyromegaly. CARDIOVASCULAR: Regular rate and rhythm without murmurs, gallops, or rubs. RESPIRATORY: Clear to auscultation. Breath sounds equal bilaterally. No wheezes, rales, or rhonchi. SKIN: warm, Dry, intact with no suspicious lesions or rash, good texture and turgor. NEURO: awake, alert, and oriented to person, place and time. There were no obvious focal neurologic abnormalities. Cranial nerve 2-12 grossly intact. 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 Leg strength 5/5 equal bilaterally. Arm strength 5/5 equal bilaterally. No pronator drift. Limb ataxia. Speech is clear and comprehensive. No slurred speech, no facial droop. Tongue is midline. Patient walks with a steady gait with her cane on ambulation assessment. No extinction/inattention. EXTREMITIES: No joint tenderness, effusion, or edema noted. BACK: Nontender without deformity. No CVA tenderness. Course Course Emergency Course: Portions of this record may have been created with voice recognition software Level of Care: Express Care Visit Vital Signs Vital signs: Reviewed MDM - Dizziness MDM Narrative Medical decision making narrative: EKG is a sinus rhythm with no ischemic findings, compared to old EKG back in July 2024 it is unchanged. Patient's NIH score 0. Dizziness seems to be or peripheral in nature, worse with certain position changes. Ambulation assessment shows patient can walk with a steady gait with her cane which is baseline for her. Patient does has significant health history. Patient has a history of vertigo and seems to be similar episode. Patient is neurologically intact, no cardiac symptoms. Neuro exam grossly unremarkable. Patient has meclizine at home, will also prescribe scopolamine patches to help with dizziness as she said it helped in the past. Scopalomine may have interaction with the potassium due to anticholinergic properties, she was has been taking potassium last time she took scopolamine patches without issues, patches are less likely to have this significant reaction with potassium, discussed signs and symptoms of stomach ulcers if they occur to stop medication immediately. Offered patient ER transfer for further evaluation and management of her symptoms and she declined and would like to try scopolamine patches, meclizine, and close per follow-up with PCP. Strict ER precautions discussed with patient including but not limited to headaches, vision changes, double vision, loss of consciousness, uncontrolled dizziness, unable to walk, unable to get out of bed, vomiting, chest pain, epigastric pain, breathing problems, nausea, one-sided weakness, facial drooping, slurred speech, confusion, or any serious concerns to go to the ER immediately. Patient verbalized understanding. Discussed physical exam findings. Advised supportive measures and signs/symptoms to go to the ER. Pt is appropriate for outpt treatment and f/u. Differential Diagnosis Differential diagnosis: Likely adverse reaction to drug, benign paroxysmal positional vertigo, vertebral basilar insufficiency and cerebrovascular accident ECG Data EKG #1: Attestation: I personally reviewed and interpreted this ECG as follows: ECG completion date: 02/05/25 ECG completion time: 15:02 Prior ECG tracings: available for review (Unchanged) EKG Interpretation: normal rate, sinus rhythm, non-specific ST changes (Unchanged compared to last EKG), normal QRS, normal QT and no acute changes Critical Care Time Critical Care Time Critical Care Time: No Discharge Plan Discharge Clinical Impression: Vertigo Patient Disposition: Home Condition: Stable Instructions: Antibiotic Form, Vertigo (ED) Additional Instructions: Your EKG is unremarkable today, and is unchanged from previous EKG. Continue take your meclizine as needed for dizziness. Use scopolamine patches as directed. Apply directly behind the ear Louann may leave it on for up to 72 hours. Rest and drink plenty of fluids. Please set up slowly and get up slowly before you start to walk to help prevent worsening dizziness. Please follow-up with your PCP in 3-5 days. If you developed headaches, vision changes, double vision, loss of consciousness, uncontrolled dizziness, unable to walk, unable to get out of bed, vomiting, chest pain, epigastric pain, breathing problems, nausea, one-sided weakness, facial drooping, slurred speech, confusion, or any serious concerns please go to the ER immediately. Patient Language: Kenyan Prescriptions: New scopolamine base 1 mg over 3 days patch 3 day 1 patch transdermal Q3D PRN (Reason: dizziness) Qty: 4 0RF No Action trazodone 100 mg tablet 100 mg PO QHS PRN lorazepam 0.5 mg tablet 0.5 mg PO QHS PRN tramadol 50 mg tablet 100 mg PO QID diphenhydramine HCl 25 mg capsule 50 mg PO QHS cholecalciferol (vitamin D3) 50 mcg (2,000 unit) capsule 50 mcg PO DAILY docusate sodium 100 mg capsule 100 mg PO BID fexofenadine 180 mg tablet 180 mg PO DAILY Tylenol Extra Strength 500 mg powder in packet 1,000 mg PO QID duloxetine 30 mg capsule,delayed release(DR/EC) PO leflunomide 20 mg tablet PO scopolamine base 1 mg over 3 days patch 3 day 1 patch transdermal Q3D PRN (Reason: vertigo) Qty: 4 0RF EQ Aspirin Low Dose 81 MG Oral Tablet Chewable See Rx Instructions .ROUTE .COMPLEX Qty: 90 1RF Dose Instruction: CHEW AND SWALLOW 1 TABLET BY MOUTH ONCE DAILY AT 8AM Rx Instructions: CHEW AND SWALLOW 1 TABLET BY MOUTH ONCE DAILY AT 8AM atorvastatin 40 mg tablet See Rx Instructions .ROUTE .COMPLEX Qty: 90 2RF Dose Instruction: Take 1 tablet by mouth once daily Rx Instructions: Take 1 tablet by mouth once daily pregabalin 75 mg capsule 75 mg PO BID Qty: 60 1RF hydralazine 25 mg tablet See Rx Instructions .ROUTE .COMPLEX Qty: 270 1RF Dose Instruction: TAKE 1 TABLET BY MOUTH THREE TIMES DAILY Rx Instructions: TAKE 1 TABLET BY MOUTH THREE TIMES DAILY metoprolol succinate 25 mg tablet extended release 24 hr See Rx Instructions .ROUTE .COMPLEX Qty: 90 1RF Dose Instruction: TAKE 1 TABLET BY MOUTH ONCE DAILY AT BEDTIME Rx Instructions: TAKE 1 TABLET BY MOUTH ONCE DAILY AT BEDTIME lisinopril 40 mg tablet See Rx Instructions .ROUTE .COMPLEX Qty: 90 1RF Dose Instruction: TAKE 1 TABLET BY MOUTH IN THE MORNING Rx Instructions: TAKE 1 TABLET BY MOUTH IN THE MORNING quetiapine [Seroquel] 25 mg tablet 12.5 mg PO HS Qty: 45 1RF hydrochlorothiazide 25 mg tablet 25 mg PO QAM Qty: 90 1RF potassium chloride [Klor-Con M20] 20 mEq tablet,ER particles/crystals 20 meq PO BID Qty: 180 1RF pantoprazole 40 mg tablet,delayed release (DR/EC) See Rx Instructions .ROUTE .COMPLEX Qty: 90 1RF Dose Instruction: TAKE 1 TABLET BY MOUTH IN THE MORNING Rx Instructions: TAKE 1 TABLET BY MOUTH IN THE MORNING fluticasone propionate 50 mcg/actuation spray,suspension 2 spray intranasal QAM Qty: 30 5RF meclizine 25 mg tablet 25 mg PO TID Qty: 30 0RF methylphenidate HCl 10 mg Tablet 10 mg PO TID Qty: 90 0RF timolol maleate 0.5 % Drops 1 drp EACH EYE Q12HR Qty: 30 0RF Follow-up/Referrals: UNKNOWN,DOCTOR [Primary Care Provider] Time of Disposition: 15:35
== END 2025-02-05 15:50 | disposition home or self-care (01) ==
DX: R42 Dizziness and giddiness (principal); I67.9 Cerebrovascular disease, unspecified; I10 Essential (primary) hypertension; G62.9 Polyneuropathy, unspecified; K21.9 Gastro-esophageal reflux disease without esophagitis; M06.9 Rheumatoid arthritis, unspecified; M79.7 Fibromyalgia; E78.2 Mixed hyperlipidemia; M19.90 Unspecified osteoarthritis, unspecified site; E66.9 Obesity, unspecified; Z68.37 Body mass index [BMI] 37.0-37.9, adult; Z85.820 Personal history of malignant melanoma of skin; Z85.3 Personal history of malignant neoplasm of breast; Z86.16 Personal history of COVID-19; Z86.73 Personal history of transient ischemic attack (TIA), and cerebral infarction without residual deficits; Z96.652 Presence of left artificial knee joint; Z90.11 Acquired absence of right breast and nipple; F03.90 Unspecified dementia, unspecified severity, without behavioral disturbance, psychotic disturbance, mood disturbance, and anxiety
CPT/HCPCS: 93005; 99213; G0463